=== PATIENT | female | born 1935 ===

== ENCOUNTER 2017-11-19 11:39 | Inpatient (IN) | payer MEDICARE, OTHER ==
[2017-11-19] MEDS ORDERED: Sodium Chloride 0.9% 1,000 ML IV STA (13:17)
[2017-11-19] MEDS ORDERED: Sodium Chloride 0.9% 1,000 ML ONE (13:30)
[2017-11-19 13:31] LABS: BASO # 0.1 K/uL (0.0-0.2); BASO % 0.6 % (0.0-2.0); EOS % 0.5 % (0.0-4.0); HEMOGLOBIN 12.4 g/dL (11.0-16.0); LYMPH # 1.7 K/uL (1.0-4.3); LYMPH % 19.4 % (20.0-40.0); MEAN CELL VOLUME 90.2 fL (81.0-99.0); MEAN CORPUSCULAR HEMOGLOBIN 30.3 pg (27.0-31.0); MEAN CORPUSCULAR HGB CONC 33.6 g/dL (33.0-37.0); MEAN PLATELET VOLUME 9.1 fL (7.2-11.7); MONO # 1.2 K/uL (0.0-0.8); MONO % 13.8 % (0.0-10.0); NEUT # 5.7 K/uL (1.8-7.0); NEUT % 65.7 % (50.0-75.0); RBC 4.1 Mil/uL (3.80-5.20); RED CELL DISTRIBUTION WIDTH 15.7 % (11.5-14.5); WHITE BLOOD COUNT 8.7 K/uL (4.8-10.8)
[2017-11-19 13:39] LABS: INR 1.2
[2017-11-19 13:45] LABS: ALB/GLOB RATIO 0.9 (1.0-2.1)
[2017-11-19 14:14] LABS: TROPONIN I 0.108 ng/mL (0.00-0.120)
--- NOTE | 2017-11-19 14:35 | RAD ---
Chest x-ray single frontal view History: Weak. Comparison: 03/05/2016 Findings: Patchy increased markings at the left lung base which may represent infiltrate and or atelectasis. Clinical correlation. Diffuse increased interstitial lung markings. Right hilar prominence. Mild calcification at the aortic knob. Tortuous aorta. Mild cardiomegaly. Degenerative changes in spine and shoulders. Impression: Patchy increased markings at the left lung base which may represent infiltrate and or atelectasis. Clinical correlation.
--- NOTE | 2017-11-19 14:43 | CT ---
PROCEDURE: CT HEAD WITHOUT CONTRAST. HISTORY: fell 1 wk ago, dizzy, poor gait COMPARISON: Noncontrast head CT performed 11/18/14 TECHNIQUE: Axial computed tomography images were obtained through the head/brain without intravenous contrast. Radiation dose: Total exam DLP = 814.25 mGy-cm. This CT exam was performed using one or more of the following dose reduction techniques: Automated exposure control, adjustment of the mA and/or kV according to patient size, and/or use of iterative reconstruction technique. FINDINGS: HEMORRHAGE: No intracranial hemorrhage. BRAIN: Diffuse atrophy with prominence of the ventricles and sulci noted. No mass effect or edema. Intracranial atherosclerosis. Intracranial atherosclerotic. Scattered periventricular and subcortical white matter hypodensities, which are nonspecific, but often seen with chronic microvascular ischemic disease. Please note that MRI with diffusion imaging is more sensitive in the detection of acute ischemic event. VENTRICLES: No hydrocephalus. CALVARIUM: Unremarkable. PARANASAL SINUSES: Mild mucosal thickening bilateral maxillary sinuses. MASTOID AIR CELLS: Unremarkable as visualized. No inflammatory changes. OTHER FINDINGS: None. IMPRESSION: Generalized atrophy. Moderate nonspecific white matter changes.
[2017-11-19 15:02] LABS: SQUAMOUS EPITHIAL 2 /hpf (0-5); URINE BACTERIA RARE (<OCC); URINE BILIRUBIN 1+ (NEGATIVE); URINE BLOOD 2+ (NEGATIVE); URINE CLARITY Hazy (Clear); URINE COLOR Amber (YELLOW); URINE GLUCOSE (UA) NORMAL (Normal); URINE LEUKOCYTE ESTERASE 1+ Leu/uL (Negative); URINE NITRATE NEGATIVE (NEGATIVE); URINE PROTEIN 1+ mg/dL (NEGATIVE); URINE UROBILINOGEN NORMAL mg/dL (0.2-1.0)
--- NOTE | 2017-11-19 15:24 | C.PDOC ---
History Of Present Illness 82 y/o female, referred by Dr. Ileana Richardson, presents to the ER complaining of weakness and lethargy which has been present for 1 week. Patient states that she fell today hitting her had. She reports that she is not eating and drinking well. Patient denies having any other injuries and medical complaints. Of note, patient lives alone. Time Seen by Provider: 11/19/17 13:11 Chief Complaint (Nursing): Weakness/Neurological Deficit History Per: Patient History/Exam Limitations: no limitations Onset/Duration Of Symptoms: Days Current Symptoms Are (Timing): Still Present Severity: Moderate Past Medical History Reviewed: Historical Data, Nursing Documentation, Vital Signs Vital Signs: Last Vital Signs Temp 97.9 F 11/20/17 16:00 Pulse 81 11/20/17 16:00 Resp 20 11/20/17 16:00 BP 145/85 11/20/17 16:00 Pulse Ox 99 11/20/17 16:00 - Medical History PMH: Arthritis, Asthma, Bronchitis, CAD, CHF, COPD, Diabetes, HTN, Hypercholesterolemia, Hypothyroidism, Osteoporosis, Peripheral Edema Denies: Atrial Fibrillation, Mitral Valve Prolapse, Chronic Kidney Disease Surgical History: Denies: Pacemaker - [facility] Procedures ASSISTANCE WITH RESPIRATORY VENTILATION, <24 HRS, CPAP (02/24/16) INSERTION OF ENDOTRACHEAL AIRWAY INTO TRACHEA, VIA OPENING (02/24/16) RESPIRATORY VENTILATION, GREATER THAN 96 CONSECUTIVE HOURS (02/24/16) Family History: States: No Known Family Hx - Social History Hx Tobacco Use: No Hx Alcohol Use: No Hx Substance Use: No - Immunization History Hx Tetanus Toxoid Vaccination: No Hx Influenza Vaccination: Yes Hx Pneumococcal Vaccination: No Review Of Systems Except As Marked, All Systems Reviewed And Found Negative. Constitutional: Positive for: Weakness. Negative for: Fever, Chills Neurological: Negative for: Weakness, Numbness Physical Exam - Physical Exam Appears: Non-toxic, No Acute Distress, Other (elderly, [place] woman) Skin: Normal Color, Warm Head: Atraumatic, Normacephalic Eye(s): bilateral: Normal Inspection, PERRL Nose: Normal Oral Mucosa: Moist Neck: Supple Chest: Symmetrical Cardiovascular: Rhythm Regular Respiratory: Normal Breath Sounds, No Accessory Muscle Use, No Rales, No Rhonchi , No Wheezing Gastrointestinal/Abdominal: Normal Exam, Soft, No Tenderness Extremity: Normal ROM Neurological/Psych: Oriented x3, Normal Speech, Normal Cognition, Normal Motor, Normal Sensation ED Course And Treatment - Laboratory Results Result Diagrams: 11/20/17 07:45 11/20/17 07:45 O2 Sat by Pulse Oximetry: 96 (RA) Pulse Ox Interpretation: Normal - Physician Consult Information Time Consulting Physician Contacted: 14:15 Physician Contacted: Outcome Of Conversation: is willing to cover the case. Medical Decision Making Medical Decision Making: Plan: --Labs --Urinalysis --CT-Head --CXR Disposition Doctor Will See Patient In The: Hospital Counseled Patient/Family Regarding: Studies Performed, Diagnosis - Disposition Disposition: HOSPITALIZED Disposition Time: 16:00 Condition: GOOD - Clinical Impression Clinical Impression: Dizziness - Scribe Statement The provider has reviewed the documentation as recorded by the Matthew Martinez Provider Attestation: All medical record entries made by the Matthew were at my direction and personally dictated by me. I have reviewed the chart and agree that the record accurately reflects my personal performance of the history, physical exam, medical decision making, and the department course for this patient. I have also personally directed, reviewed, and agree with the discharge instructions and disposition.
[2017-11-19] MEDS: Sodium Chloride 0.9% 1,000 ML IV SCH (17:00)
[2017-11-19] MEDS ORDERED: Albuterol-Ipratrop 3 mg / 0.5 (3 ml) UD INH PRN (17:32)
[2017-11-19] MEDS ORDERED: AZELASTINE 0.05% OU SCH (18:00)
[2017-11-19] MEDS ORDERED: AZELASTINE HCL 0.05% OU SCH (18:00)
[2017-11-19] MEDS: Cilostazol 50 mg Tab UD PO SCH (18:38)
[2017-11-19] MEDS: (Novolin R) Insulin Human Regular 100 units/ml vial SC SCH (21:30)
[2017-11-20] MEDS: Sodium Chloride 0.9% 1,000 ML IV SCH ×3 (05:30→20:29)
[2017-11-20 07:58] LABS: BASO % 0.6 % (0.0-2.0); EOS # 0.1 K/uL (0.0-0.7); EOS % 1.6 % (0.0-4.0); HEMOGLOBIN 11.1 g/dL (11.0-16.0); LYMPH # 2.2 K/uL (1.0-4.3); LYMPH % 28.8 % (20.0-40.0); MEAN CELL VOLUME 90.2 fL (81.0-99.0); MEAN CORPUSCULAR HEMOGLOBIN 30.3 pg (27.0-31.0); MEAN CORPUSCULAR HGB CONC 33.5 g/dL (33.0-37.0); MEAN PLATELET VOLUME 9.4 fL (7.2-11.7); MONO # 0.8 K/uL (0.0-0.8); NEUT # 4.6 K/uL (1.8-7.0); RBC 3.66 Mil/uL (3.80-5.20); RED CELL DISTRIBUTION WIDTH 15.3 % (11.5-14.5); WHITE BLOOD COUNT 7.8 K/uL (4.8-10.8)
[2017-11-20 08:25] LABS: ALBUMIN 3.3 g/dL (3.5-5.0); CALCIUM 8.3 mg/dl (8.6-10.4)
[2017-11-20] MEDS: (Novolin R) Insulin Human Regular 100 units/ml vial SC SCH ×4 (08:43→21:53)
[2017-11-20] MEDS: Cilostazol 50 mg Tab UD PO SCH ×2 (11:15→17:58)
[2017-11-20] MEDS: AZELASTINE 0.05% OU SCH ×2 (11:15→20:29)
--- NOTE | 2017-11-20 11:22 | RAD ---
PROCEDURE: Radiographs of the Lumbar Spine. HISTORY: s/p fall COMPARISON: No prior. FINDINGS: BONES: Generalized osteopenia, with diffuse spondylosis. There is mild increased concavity to the superior T12 endplate - prominent Schmorl's node indentation versus of mild compression deformity, less 25 percent, compatible with this. No decreased height of the anterior superior vertebral body corner here. Schmorl's node indentation favored. Prominent thoraco lumbar spondylosis also noted. Mild anterior subluxation of L5 relative to S1 - - due to inferred ligamentous laxity given the facet hypertrophic arthrosis here. No spondylolysis noted. Generalized osteopenia DISC SPACES: Thoraco lumbar level segmental disc space narrowing. OTHER FINDINGS: Atherosclerotic vascular calcifications descending abdominal aorta extending into the common iliac bifurcations. IMPRESSION: Probable T12 Schmorl's node indentation with prominent anterior spondylosis here. No fracture with retropulsion into the spinal canal suggested. . Generalized osteopenia L5-S1 minimal subluxation -attributed to ligamentous laxity- facet hypertrophic arthrosis noted Degenerative disc disease with calcified degenerative disc as well Atherosclerotic vascular disease
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
--- NOTE | 2017-11-20 15:21 | MRI ---
PROCEDURE: MRI BRAIN WITHOUT CONTRAST HISTORY: s/p fall COMPARISON: Noncontrast head CT from 11/19/2017. TECHNIQUE: Multiplanar, multisequence MR images of the brain were obtained without intravenous contrast enhancement. FINDINGS: HEMORRHAGE: None DWI: No evidence of an acute or early subacute infarction. BRAIN PARENCHYMA: There are severe chronic microangiopathic changes. There is no mass, mass effect or abnormal extra-axial fluid collection. The midline sagittal structures are normal. There is a prominent perivascular space in the right basal ganglia. VENTRICLES: There is moderate age-related global parenchymal volume loss and proportionate enlargement of the ventricles and cortical sulci. There is a cavum septum pellucidum. CRANIUM: There is normal bone marrow signal pattern. ORBITS: Grossly unremarkable. PARANASAL SINUSES/MASTOIDS: There is mild mucosal thickening in the paranasal sinuses. The mastoid air cells are clear. VASCULAR SYSTEM: There are normal signal voids in the larger intracranial arteries. OTHER FINDINGS: None. IMPRESSION: No acute intracranial abnormality. Severe chronic microangiopathic changes and moderate age-related global parenchymal volume loss.
--- NOTE | 2017-11-20 23:09 | CARD ---
APPROVED REPORT EKG Measurement Heart [id number] <Conclusion> Sinus rhythm with frequent premature ventricular complexes Left ventricular hypertrophy with repolarization abnormality Abnormal ECG
[2017-11-21 08:08] LABS: HEMOGLOBIN 11.9 g/dL (11.0-16.0); MEAN CELL VOLUME 89.8 fL (81.0-99.0); MEAN CORPUSCULAR HEMOGLOBIN 30.4 pg (27.0-31.0); MEAN CORPUSCULAR HGB CONC 33.8 g/dL (33.0-37.0); RBC 3.92 Mil/uL (3.80-5.20); RED CELL DISTRIBUTION WIDTH 15.2 % (11.5-14.5)
[2017-11-21] MEDS: (Novolin R) Insulin Human Regular 100 units/ml vial SC SCH ×3 (08:12→16:30)
[2017-11-21 08:53] LABS: ALBUMIN 3.6 g/dL (3.5-5.0); ALT/SGPT 32 U/L (9-52); AST/SGOT 29 U/L (14-36); BLOOD UREA NITROGEN 12 mg/dL (7-17); CALCIUM 9.1 mg/dl (8.6-10.4); GFR AFRICAN-AMERICAN > 60; GFR NON-AFRICAN AMERICAN > 60
[2017-11-21] MEDS ORDERED: Pneumococcal 23-Valent Vaccine IM ONE (10:00)
[2017-11-21] MEDS ORDERED: Influenza Vaccine 60 mcg/0.5 mL SYR (4YR UP) IM ONE (10:00)
[2017-11-21] MEDS: Cilostazol 50 mg Tab UD PO SCH ×2 (11:40→17:51)
[2017-11-21] MEDS: AZELASTINE 0.05% OU SCH ×2 (11:43→19:10)
--- NOTE | 2017-11-21 13:23 | CP.PCM.PN ---
Subjective - Date & Time of Evaluation Date of Evaluation: 11/21/17 Time of Evaluation: 13:21 - Subjective Subjective: CHIEF COMPLAINTS TODAY : GEN WEAKNESS , WALKS WITH ASSISTANCE CXR ? PNEUMONIA ROS. HEENT : N. Resp : No wheezing ,pleuritic CP ,or hemoptysis Cardio : No anginal CP, PND, orthopnea, palpitation GI : No abd.pain, n/v ,diarrhea or GI bleeding . EDGING CATCHER : No headache, vertigo, focal deficit. Musculoskel : No joint swelling , Derm : No rash Psych : Normal affect. Ext : No swelling ,calf pain PE. Pt. is alert awake in no distress. V.S As noted in the chart Head ,ear nose,throat and eyes : Normal. Neck : Supple with normal carotids. Lungs: Clear air entry. Heart : S1 & S2 normal with S4. No murmur. Abd : Soft non tender with normal bowel sounds. Neuro : Moves all ext. with no localized deficit. Ext : No edema with intact pulses.Non tender calves Derm : No rashes or decubitus ulcer. LABS/RADIOLOGY: MRI BRAIN NEG FOR ACUTE CHANGES ASSESSMENT/PLAN : ID EVAL PT Objective - Vital Signs/Intake and Output Vital Signs (last 24 hours): Temp Pulse Resp BP Pulse Ox 98.2 F 82 20 161/70 H 95 11/21/17 08:28 11/21/17 08:28 11/21/17 08:28 11/21/17 11:45 11/21/17 08:28 - Medications Medications: Current Medications Albuterol/Ipratropium (Duoneb 3 Mg/0.5 Mg (3 Ml) Ud) 3 ml INH RQ6 [facility] Aspirin (Aspirin Chewable) 81 mg PO DAILY [facility] Last Admin: 11/21/17 11:42 Dose: 81 mg Cilostazol (Pletal) 50 mg PO BID [facility] Last Admin: 11/21/17 11:40 Dose: 50 mg Gabapentin (Neurontin) 300 mg PO DAILY [facility] Last Admin: 11/21/17 11:42 Dose: 300 mg Heparin Sodium (Porcine) (Heparin) 5,000 units SC Q12 [facility] Last Admin: 11/19/17 21:33 Dose: 5,000 units Home Med (Patient's Own Drops) 2 drop OU BID [facility] Last Admin: 11/21/17 11:43 Dose: 2 drop Azithromycin 500 mg/ Dextrose 250 mls @ 167 mls/hr IVPB Q24H [facility] Last Admin: 11/20/17 21:52 Dose: 167 mls/hr Insulin Human Regular (Novolin R) 0 unit SC ACHS [facility] PRN Reason: Protocol Last Admin: 11/21/17 08:12 Dose: Not Given Losartan Potassium (Cozaar) 100 mg PO DAILY [facility] Last Admin: 11/21/17 11:42 Dose: 100 mg Metoprolol Tartrate (Lopressor) 50 mg PO BID [facility] Last Admin: 11/21/17 11:42 Dose: 50 mg - Labs Labs: 11/21/17 08:02 11/21/17 08:02 PT 13.0 SECONDS (9.7-12.2) H 11/19/17 13:24 INR 1.2 11/19/17 13:24 APTT 27 SECONDS (21-34) 11/19/17 13:24
--- NOTE | 2017-11-21 13:42 | CP.PCM.CON ---
History of Present Illness - History of Present Illness History of Present Illness: INFECTIOUS DISEASE CONSULT. PATIENT SEEN. CHART REVIEWED, STRESS WITH FAMILY MEMBERS DAUGHTER AT THE BEDSIDE. INFECTIOUS DISEASE CONSULT DICTATED. DICTATION #[id number]. Past Patient History - Past Medical History & Family History Past Medical History?: Yes - Past Social History Smoking Status: Never Smoked - CARDIAC Hx Atrial Fibrillation: No Hx Congestive Heart Failure: Yes Hx Hypercholesterolemia: Yes Hx Hypertension: Yes Hx Mitral Valve Prolapse: No Hx Pacemaker: No Hx Peripheral Edema: Yes - PULMONARY Hx Asthma: Yes Hx Bronchitis: Yes Hx Chronic Obstructive Pulmonary Disease (COPD): Yes - NEUROLOGICAL Hx Neurological Disorder: No Hx Dizziness: Yes - HEENT Hx HEENT Problems: Yes Hx Cataracts: Yes (cataract surgery 3 years ago?) Hx Glaucoma: No Other/Comment: wear eyeglasses - RENAL Hx Chronic Kidney Disease: No - ENDOCRINE/METABOLIC Hx Hypothyroidism: Yes - HEMATOLOGICAL/ONCOLOGICAL Hx Blood Disorders: No - INTEGUMENTARY Hx Dermatological Problems: No - MUSCULOSKELETAL/RHEUMATOLOGICAL Hx Arthritis: Yes Hx Osteoporosis: Yes - GASTROINTESTINAL Hx Gastrointestinal Disorders: No - GENITOURINARY/GYNECOLOGICAL Hx Genitourinary Disorders: No - PSYCHIATRIC Hx Substance Use: No - SURGICAL HISTORY Hx Surgeries: Yes Hx Orthopedic Surgery: Yes (left arm surgery 8 yrs ago) - ANESTHESIA Hx Anesthesia: Yes Hx Anesthesia Reactions: No Hx Malignant Hyperthermia: No Meds Allergies/Adverse Reactions: Allergies Allergy/AdvReac Type Severity Reaction Status Date / Time No Known Allergies Allergy Verified 11/19/17 12:21 - Medications Medications: Current Medications Albuterol/Ipratropium (Duoneb 3 Mg/0.5 Mg (3 Ml) Ud) 3 ml INH RQ6 [facility] Aspirin (Aspirin Chewable) 81 mg PO DAILY [facility] Last Admin: 11/21/17 11:42 Dose: 81 mg Cilostazol (Pletal) 50 mg PO BID [facility] Last Admin: 11/21/17 11:40 Dose: 50 mg Gabapentin (Neurontin) 300 mg PO DAILY [facility] Last Admin: 11/21/17 11:42 Dose: 300 mg Heparin Sodium (Porcine) (Heparin) 5,000 units SC Q12 [facility] Last Admin: 11/19/17 21:33 Dose: 5,000 units Home Med (Patient's Own Drops) 2 drop OU BID [facility] Last Admin: 11/21/17 11:43 Dose: 2 drop Azithromycin 500 mg/ Dextrose 250 mls @ 167 mls/hr IVPB Q24H [facility] Last Admin: 11/20/17 21:52 Dose: 167 mls/hr Insulin Human Regular (Novolin R) 0 unit SC ACHS [facility] PRN Reason: Protocol Last Admin: 11/21/17 13:21 Dose: Not Given Losartan Potassium (Cozaar) 100 mg PO DAILY [facility] Last Admin: 11/21/17 11:42 Dose: 100 mg Metoprolol Tartrate (Lopressor) 50 mg PO BID [facility] Last Admin: 11/21/17 11:42 Dose: 50 mg Results - Vital Signs Recent Vital Signs: Last Vital Signs Temp 98.2 F 11/21/17 08:28 Pulse 82 11/21/17 08:28 Resp 20 11/21/17 08:28 BP 161/70 H 11/21/17 11:45 Pulse Ox 95 11/21/17 08:28 - Labs Result Diagrams: 11/21/17 08:02 11/21/17 08:02 Labs: Laboratory Results - last 24 hr 11/20/17 11/20/17 11/21/17 16:24 21:08 07:39 WBC RBC Hgb Hct MCV MCH MCHC RDW Plt Count MPV Sodium Potassium Chloride Carbon Dioxide Anion Gap BUN Creatinine Est GFR ( Amer) Est GFR (Non-Af Amer) POC Glucose (mg/dL) 197 H 101 112 H Random Glucose Calcium Total Bilirubin AST ALT Alkaline Phosphatase Total Protein Albumin Globulin Albumin/Globulin Ratio 11/21/17 11/21/17 11/21/17 08:02 08:02 11:35 WBC 8.0 RBC 3.92 Hgb 11.9 Hct 35.2 MCV 89.8 MCH 30.4 MCHC 33.8 RDW 15.2 H Plt Count 187 MPV 9.0 Sodium 131 L Potassium 4.7 Chloride 103 Carbon Dioxide 22 Anion Gap 10 BUN 12 Creatinine 0.8 Est GFR ( Amer) > 60 Est GFR (Non-Af Amer) > 60 POC Glucose (mg/dL) 163 H Random Glucose 122 H Calcium 9.1 Total Bilirubin 0.8 AST 29 ALT 32 Alkaline Phosphatase 46 Total Protein 7.2 Albumin 3.6 Globulin 3.6 Albumin/Globulin Ratio 1.0
--- NOTE | 2017-11-21 18:31 | CT ---
PROCEDURE: CT Chest without contrast HISTORY: pneumonia COMPARISON: 02/29/2016 TECHNIQUE: Contiguous axial images were obtained through the chest without intravenous contrast enhancement. Sagittal and coronal reconstructions were performed. Radiation dose (DLP): 425.10 mGy-cm. This CT exam was performed using one or more of the following dose reduction techniques: Automated exposure control, adjustment of the mA and/or kV according to patient size, and/or use of iterative reconstruction technique. FINDINGS: LUNGS: Multifocal ground-glass opacities in the upper lobes. Compared to prior examination, there has been clearing of the lower lobe ground-glass opacities. Probable fibrotic interstitial changes at the lung bases. There are some patchy areas of damaso consolidation in the right upper lobe. MEDIASTINUM: Unremarkable thoracic aorta. No aneurysm. Cardiomegaly. Mitral annular calcification. Coronary arterial calcification. Main pulmonary artery unremarkable. No vascular congestion. Shotty lymph nodes. No significantly enlarged mediastinal or hilar nodes are appreciated. There is a nodule in the thyroid isthmus measuring approximately 1.5 cm. Recommend correlation with thyroid ultrasound examination. PLEURA: No pleural fluid. No pneumothorax. BONES: No fracture. No destructive lesion. UPPER ABDOMEN: Mild bilateral adrenal hypertrophy. OTHER FINDINGS: None. IMPRESSION: Multifocal ground-glass opacities in the upper lobes with some patchy areas of damaso consolidation in the right upper lobe. Possible pneumonia. Interstitial fibrotic changes at the lung bases. Cardiomegaly. Additional minor findings as above.
[2017-11-21] MEDS: Albuterol-Ipratrop 3 mg / 0.5 (3 ml) UD INH SCH (19:47)
[2017-11-22] MEDS: Albuterol-Ipratrop 3 mg / 0.5 (3 ml) UD INH SCH ×4 (01:40→19:45)
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
[2017-11-22 08:10] LABS: ALBUMIN 3.5 g/dL (3.5-5.0); BILIRUBIN,DIRECT 0.5 mg/dL (0.0-0.4)
[2017-11-22] MEDS: (Novolin R) Insulin Human Regular 100 units/ml vial SC SCH ×4 (08:12→21:48)
[2017-11-22 10:24] LABS: MYCOPLASMA PNEUMONIAE IGM NEGATIVE (NEGATIVE)
[2017-11-22] MEDS: Cilostazol 50 mg Tab UD PO SCH ×2 (10:47→18:27)
[2017-11-22] MEDS: AZELASTINE 0.05% OU SCH ×2 (10:51→18:26)
--- NOTE | 2017-11-22 13:32 | CP.PCM.PN ---
Subjective - Date & Time of Evaluation Date of Evaluation: 11/22/17 Time of Evaluation: 13:31 - Subjective Subjective: CHIEF COMPLAINTS TODAY : GEN WEAKNESS , WALKS WITH ASSISTANCE CXR ? PNEUMONIA ROS. HEENT : N. Resp : No wheezing ,pleuritic CP ,or hemoptysis Cardio : No anginal CP, PND, orthopnea, palpitation GI : No abd.pain, n/v ,diarrhea or GI bleeding . 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 Musculoskel : No joint swelling , Derm : No rash Psych : Normal affect. Ext : No swelling ,calf pain PE. Pt. is alert awake in no distress. V.S As noted in the chart Head ,ear nose,throat and eyes : Normal. Neck : Supple with normal carotids. Lungs: Clear air entry. Heart : S1 & S2 normal with S4. No murmur. Abd : Soft non tender with normal bowel sounds. Neuro : Moves all ext. with no localized deficit. Ext : No edema with intact pulses.Non tender calves Derm : No rashes or decubitus ulcer. LABS/RADIOLOGY: ct chestBIL APICAL PNEUMONIA PLAN; IV AB ?TB W/U Objective - Vital Signs/Intake and Output Vital Signs (last 24 hours): Temp Pulse Resp BP Pulse Ox 98 F 68 20 131/85 96 11/22/17 08:21 11/22/17 08:21 11/22/17 08:21 11/22/17 08:21 11/22/17 08:21 - Medications Medications: Current Medications Albuterol/Ipratropium (Duoneb 3 Mg/0.5 Mg (3 Ml) Ud) 3 ml INH RQ6 [facility] Last Admin: 11/22/17 09:18 Dose: 3 ml Aspirin (Aspirin Chewable) 81 mg PO DAILY [facility] Last Admin: 11/22/17 10:45 Dose: 81 mg Cilostazol (Pletal) 50 mg PO BID [facility] Last Admin: 11/22/17 10:47 Dose: 50 mg Gabapentin (Neurontin) 300 mg PO DAILY [facility] Last Admin: 11/22/17 10:44 Dose: 300 mg Heparin Sodium (Porcine) (Heparin) 5,000 units SC Q12 [facility] Last Admin: 11/19/17 21:33 Dose: 5,000 units Home Med (Patient's Own Drops) 2 drop OU BID [facility] Last Admin: 11/22/17 10:51 Dose: 2 drop Azithromycin 500 mg/ Dextrose 250 mls @ 167 mls/hr IVPB Q24H [facility] Last Admin: 11/21/17 18:30 Dose: 167 mls/hr Ceftriaxone Sodium 1 gm/ (Sodium Chloride) 100 mls @ 50 mls/30 min IVPB Q12H [facility] Last Admin: 11/22/17 01:51 Dose: 50 mls/30 min Insulin Human Regular (Novolin R) 0 unit SC ACHS [facility] PRN Reason: Protocol Last Admin: 11/22/17 12:27 Dose: 3 unit Losartan Potassium (Cozaar) 100 mg PO DAILY [facility] Last Admin: 11/22/17 10:45 Dose: 100 mg Metoprolol Tartrate (Lopressor) 50 mg PO BID [facility] Last Admin: 11/22/17 10:45 Dose: 50 mg - Labs Labs: 11/21/17 08:02 11/21/17 08:02 PT 13.0 SECONDS (9.7-12.2) H 11/19/17 13:24 INR 1.2 11/19/17 13:24 APTT 27 SECONDS (21-34) 11/19/17 13:24
--- NOTE | 2017-11-22 13:51 | CP.PCM.PN ---
Subjective - Date & Time of Evaluation Date of Evaluation: 11/22/17 Time of Evaluation: 13:51 - Subjective Subjective: CHIEF COMPLAINTS TODAY : c/o dry cough unable to expectorate. ct chest w/o contrast noted. 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 HEENT : N. Resp : +ve wheezing ,pleuritic CP ,or hemoptysis Cardio : No anginal CP, PND, orthopnea, palpitation GI : No abd.pain, n/v ,diarrhea or GI bleeding . 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 Musculoskel : No joint swelling , Derm : No rash Psych : Normal affect. Ext : No swelling ,calf pain PE. Pt. is alert awake in no distress. V.S As noted in the chart Head ,ear nose,throat and eyes : Normal. Neck : Supple with normal carotids. Lungs: B/L RHONCHI /EXPIRATORY WHEEZE. Heart : S1 & S2 normal with S4. No murmur. Abd : Soft non tender with normal bowel sounds. Neuro : Moves all ext. with no localized deficit. Ext : No edema with intact pulses.Non tender calves Derm : No rashes or decubitus ulcer. LABS/RADIOLOGY: CT CHEST VIANNEY APICAL PNEUMONIA . ESR >100 PLAN; CONTINUE IV ROCEPHIN 1GM IV Q12 [facility]. 11/21/17. CONTINUE IV ZITHROMAX 500MG IV [id number] . 11/21/17 ?TB W/U. PULMONARY CONSULT R/O TB. Objective - Vital Signs/Intake and Output Vital Signs (last 24 hours): Temp Pulse Resp BP Pulse Ox 98 F 68 20 131/85 96 11/22/17 08:21 11/22/17 08:21 11/22/17 08:21 11/22/17 08:21 11/22/17 08:21 - Medications Medications: Current Medications Albuterol/Ipratropium (Duoneb 3 Mg/0.5 Mg (3 Ml) Ud) 3 ml INH RQ6 [facility] Last Admin: 11/22/17 09:18 Dose: 3 ml Aspirin (Aspirin Chewable) 81 mg PO DAILY [facility] Last Admin: 11/22/17 10:45 Dose: 81 mg Cilostazol (Pletal) 50 mg PO BID [facility] Last Admin: 11/22/17 10:47 Dose: 50 mg Gabapentin (Neurontin) 300 mg PO DAILY [facility] Last Admin: 11/22/17 10:44 Dose: 300 mg Heparin Sodium (Porcine) (Heparin) 5,000 units SC Q12 [facility] Last Admin: 11/19/17 21:33 Dose: 5,000 units Home Med (Patient's Own Drops) 2 drop OU BID [facility] Last Admin: 11/22/17 10:51 Dose: 2 drop Azithromycin 500 mg/ Dextrose 250 mls @ 167 mls/hr IVPB Q24H [facility] Last Admin: 11/21/17 18:30 Dose: 167 mls/hr Ceftriaxone Sodium 1 gm/ (Sodium Chloride) 100 mls @ 50 mls/30 min IVPB Q12H [facility] Last Admin: 11/22/17 01:51 Dose: 50 mls/30 min Insulin Human Regular (Novolin R) 0 unit SC ACHS [facility] PRN Reason: Protocol Last Admin: 11/22/17 12:27 Dose: 3 unit Losartan Potassium (Cozaar) 100 mg PO DAILY [facility] Last Admin: 11/22/17 10:45 Dose: 100 mg Metoprolol Tartrate (Lopressor) 50 mg PO BID [facility] Last Admin: 11/22/17 10:45 Dose: 50 mg - Labs Labs: 11/21/17 08:02 11/21/17 08:02 PT 13.0 SECONDS (9.7-12.2) H 11/19/17 13:24 INR 1.2 11/19/17 13:24 APTT 27 SECONDS (21-34) 11/19/17 13:24
[2017-11-23] MEDS: Albuterol-Ipratrop 3 mg / 0.5 (3 ml) UD INH SCH ×4 (01:17→21:34)
[2017-11-23] MEDS: (Novolin R) Insulin Human Regular 100 units/ml vial SC SCH ×4 (07:33→21:36)
[2017-11-23] MEDS: Cilostazol 50 mg Tab UD PO SCH ×2 (09:50→17:44)
[2017-11-23] MEDS: AZELASTINE 0.05% OU SCH ×2 (10:00→17:45)
--- NOTE | 2017-11-23 13:24 | CP.PCM.PN ---
Subjective - Date & Time of Evaluation Date of Evaluation: 11/23/17 Time of Evaluation: 13:24 - Subjective Subjective: CHIEF COMPLAINTS TODAY : GEN WEAKNESS , WALKS WITH ASSISTANCE CXR ? PNEUMONIA ROS. HEENT : N. Resp : No wheezing ,pleuritic CP ,or hemoptysis Cardio : No anginal CP, PND, orthopnea, palpitation GI : No abd.pain, n/v ,diarrhea or GI bleeding . BREAKDOWN PERSON : No headache, vertigo, focal deficit. Musculoskel : No joint swelling , Derm : No rash Psych : Normal affect. Ext : No swelling ,calf pain PE. Pt. is alert awake in no distress. V.S As noted in the chart Head ,ear nose,throat and eyes : Normal. Neck : Supple with normal carotids. Lungs: Clear air entry. Heart : S1 & S2 normal with S4. No murmur. Abd : Soft non tender with normal bowel sounds. Neuro : Moves all ext. with no localized deficit. Ext : No edema with intact pulses.Non tender calves Derm : No rashes or decubitus ulcer. LABS/RADIOLOGY: ct chestBIL APICAL PNEUMONIA PLAN; IV AB AWAITING [employer] /PULM EVAL Objective - Vital Signs/Intake and Output Vital Signs (last 24 hours): Temp Pulse Resp BP Pulse Ox 97.7 F 83 20 136/66 97 11/23/17 08:11 11/23/17 08:11 11/23/17 08:11 11/23/17 08:11 11/23/17 08:11 Intake and Output: 11/23/17 11/23/17 11:59 23:59 Intake Total 100 Balance 100 - Medications Medications: Current Medications Albuterol/Ipratropium (Duoneb 3 Mg/0.5 Mg (3 Ml) Ud) 3 ml INH RQ6 [facility] Last Admin: 11/23/17 08:59 Dose: 3 ml Aspirin (Aspirin Chewable) 81 mg PO DAILY [facility] Last Admin: 11/23/17 09:50 Dose: 81 mg Cilostazol (Pletal) 50 mg PO BID [facility] Last Admin: 11/23/17 09:50 Dose: 50 mg Gabapentin (Neurontin) 300 mg PO DAILY [facility] Last Admin: 11/23/17 09:50 Dose: 300 mg Heparin Sodium (Porcine) (Heparin) 5,000 units SC Q12 [facility] Last Admin: 11/19/17 21:33 Dose: 5,000 units Home Med (Patient's Own Drops) 2 drop OU BID [facility] Last Admin: 11/22/17 18:26 Dose: 2 drop Azithromycin 500 mg/ Dextrose 250 mls @ 167 mls/hr IVPB Q24H [facility] Last Admin: 11/22/17 18:27 Dose: 167 mls/hr Ceftriaxone Sodium 1 gm/ (Sodium Chloride) 100 mls @ 50 mls/30 min IVPB Q12H [facility] Last Admin: 11/23/17 03:19 Dose: 50 mls/30 min Insulin Human Regular (Novolin R) 0 unit SC ACHS [facility] PRN Reason: Protocol Last Admin: 11/23/17 12:30 Dose: 2 unit Losartan Potassium (Cozaar) 100 mg PO DAILY [facility] Last Admin: 11/23/17 09:49 Dose: 100 mg Metoprolol Tartrate (Lopressor) 50 mg PO BID [facility] Last Admin: 11/22/17 18:25 Dose: 50 mg - Labs Labs: 11/21/17 08:02 11/21/17 08:02 PT 13.0 SECONDS (9.7-12.2) H 11/19/17 13:24 INR 1.2 11/19/17 13:24 APTT 27 SECONDS (21-34) 11/19/17 13:24
--- NOTE | 2017-11-23 15:32 | CP.PCM.CON ---
History of Present Illness - History of Present Illness History of Present Illness: 82 y/o female who presented with lethargy, fatigue and dyspnea. The patient is found to have upperlobe infiltrates and some chronic changes. Pulmonary consult called for further evaluation. Pt reports her symptoms to be present for 1 week. She denies fever, chills, night sweats, weight loss or hemoptysis. Review of Systems - Review of Systems All systems: reviewed and no additional remarkable complaints except (See HPI, rest negative) Past Patient History - Past Medical History & Family History Past Medical History?: Yes - Past Social History Smoking Status: Never Smoked - CARDIAC Hx Atrial Fibrillation: No Hx Congestive Heart Failure: Yes Hx Hypercholesterolemia: Yes Hx Hypertension: Yes Hx Mitral Valve Prolapse: No Hx Pacemaker: No Hx Peripheral Edema: Yes - PULMONARY Hx Asthma: Yes Hx Bronchitis: Yes Hx Chronic Obstructive Pulmonary Disease (COPD): Yes - NEUROLOGICAL Hx Neurological Disorder: No Hx Dizziness: Yes - HEENT Hx HEENT Problems: Yes Hx Cataracts: Yes (cataract surgery 3 years ago?) Hx Glaucoma: No Other/Comment: wear eyeglasses - RENAL Hx Chronic Kidney Disease: No - ENDOCRINE/METABOLIC Hx Hypothyroidism: Yes - HEMATOLOGICAL/ONCOLOGICAL Hx Blood Disorders: No - INTEGUMENTARY Hx Dermatological Problems: No - MUSCULOSKELETAL/RHEUMATOLOGICAL Hx Arthritis: Yes Hx Osteoporosis: Yes - GASTROINTESTINAL Hx Gastrointestinal Disorders: No - GENITOURINARY/GYNECOLOGICAL Hx Genitourinary Disorders: No - PSYCHIATRIC Hx Substance Use: No - SURGICAL HISTORY Hx Surgeries: Yes Hx Orthopedic Surgery: Yes (left arm surgery 8 yrs ago) - ANESTHESIA Hx Anesthesia: Yes Hx Anesthesia Reactions: No Hx Malignant Hyperthermia: No Meds Allergies/Adverse Reactions: Allergies Allergy/AdvReac Type Severity Reaction Status Date / Time No Known Allergies Allergy Verified 11/19/17 12:21 - Medications Medications: Current Medications Albuterol/Ipratropium (Duoneb 3 Mg/0.5 Mg (3 Ml) Ud) 3 ml INH RQ6 [facility] Last Admin: 11/23/17 08:59 Dose: 3 ml Aspirin (Aspirin Chewable) 81 mg PO DAILY [facility] Last Admin: 11/23/17 09:50 Dose: 81 mg Cilostazol (Pletal) 50 mg PO BID [facility] Last Admin: 11/23/17 09:50 Dose: 50 mg Gabapentin (Neurontin) 300 mg PO DAILY [facility] Last Admin: 11/23/17 09:50 Dose: 300 mg Heparin Sodium (Porcine) (Heparin) 5,000 units SC Q12 [facility] Last Admin: 11/19/17 21:33 Dose: 5,000 units Home Med (Patient's Own Drops) 2 drop OU BID [facility] Last Admin: 11/23/17 10:00 Dose: 2 drop Azithromycin 500 mg/ Dextrose 250 mls @ 167 mls/hr IVPB Q24H [facility] Last Admin: 11/22/17 18:27 Dose: 167 mls/hr Ceftriaxone Sodium 1 gm/ (Sodium Chloride) 100 mls @ 50 mls/30 min IVPB Q12H [facility] Last Admin: 11/23/17 14:00 Dose: 50 mls/30 min Insulin Human Regular (Novolin R) 0 unit SC ACHS [facility] PRN Reason: Protocol Last Admin: 11/23/17 12:30 Dose: 2 unit Losartan Potassium (Cozaar) 100 mg PO DAILY [facility] Last Admin: 11/23/17 09:49 Dose: 100 mg Metoprolol Tartrate (Lopressor) 50 mg PO BID [facility] Last Admin: 11/22/17 18:25 Dose: 50 mg Physical Exam - Head Exam Head Exam: NORMAL INSPECTION - Eye Exam Eye Exam: Normal appearance - ENT Exam ENT Exam: Mucous Membranes Moist - Respiratory Exam Respiratory Exam: Clear to Auscultation Bilateral, NORMAL BREATHING PATTERN - Cardiovascular Exam Cardiovascular Exam: REGULAR RHYTHM, +S1, +S2 - GI/Abdominal Exam GI & Abdominal Exam: Normal Bowel Sounds, Soft - Extremities Exam Extremities exam: Positive for: normal inspection Results - Vital Signs Recent Vital Signs: Last Vital Signs Temp 97.7 F 11/23/17 08:11 Pulse 83 11/23/17 08:11 Resp 20 11/23/17 08:11 BP 136/66 11/23/17 08:11 Pulse Ox 97 11/23/17 08:11 - Labs Result Diagrams: 11/21/17 08:02 11/21/17 08:02 Labs: Laboratory Results - last 24 hr 11/22/17 11/22/17 11/23/17 16:08 21:09 07:05 POC Glucose (mg/dL) 215 H 184 H 129 H 11/23/17 11:15 POC Glucose (mg/dL) 226 H Assessment & Plan - Assessment and Plan (Free Text) Assessment: Pneumonia ? Pulmonary TB COPD CHF Agree with Respiratory isolation Ceftrioxone and zithromax [employer]'s [employer] QUENTIFERON Will evaluate for further w/u based on above tests. Consider Lasix 2D Echo to evaluate cardiac function, if not done recently.
--- NOTE | 2017-11-23 22:26 | CP.PCM.PN ---
Subjective - Date & Time of Evaluation Date of Evaluation: 11/23/17 Time of Evaluation: 22:26 - Subjective Subjective: CHIEF COMPLAINTS TODAY : AFEBRILE Feeling better SEEN BY PULMONARY AND APPRECIATED ct chest w/o contrast noted. 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 HEENT : N. Resp : +ve wheezing ,pleuritic CP ,or hemoptysis Cardio : No anginal CP, PND, orthopnea, palpitation GI : No abd.pain, n/v ,diarrhea or GI bleeding . 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 Musculoskel : No joint swelling , Derm : No rash Psych : Normal affect. Ext : No swelling ,calf pain PE. Pt. is alert awake in no distress. V.S As noted in the chart Head ,ear nose,throat and eyes : Normal. Neck : Supple with normal carotids. Lungs: B/L RHONCHI /EXPIRATORY WHEEZE. Heart : S1 & S2 normal with S4. No murmur. Abd : Soft non tender with normal bowel sounds. Neuro : Moves all ext. with no localized deficit. Ext : No edema with intact pulses.Non tender calves Derm : No rashes or decubitus ulcer. LABS/RADIOLOGY: CT CHEST VIANNEY APICAL PNEUMONIA . ESR >100 PLAN; CONTINUE IV ROCEPHIN 1GM IV Q12 [facility]. 11/21/17. CONTINUE IV ZITHROMAX 500MG IV [id number] . 11/21/17 TB W/U. IN PROGRESS aWAIT qUANTIferon gOLD tb TEST SPUTUM INDUCTION DAILY 3 SPUTUM'S. PULMONARY CONSULT R/O TB. APPRECIATED. Objective - Vital Signs/Intake and Output Vital Signs (last 24 hours): Temp Pulse Resp BP Pulse Ox 97.9 F 94 H 20 147/76 99 11/23/17 16:00 11/23/17 16:00 11/23/17 16:00 11/23/17 16:00 11/23/17 16:00 Intake and Output: 11/23/17 11/24/17 18:59 06:59 Intake Total 560 Balance 560 - Medications Medications: Current Medications Albuterol/Ipratropium (Duoneb 3 Mg/0.5 Mg (3 Ml) Ud) 3 ml INH RQ6 [facility] Last Admin: 11/23/17 21:34 Dose: 3 ml Aspirin (Aspirin Chewable) 81 mg PO DAILY [facility] Last Admin: 11/23/17 09:50 Dose: 81 mg Cilostazol (Pletal) 50 mg PO BID [facility] Last Admin: 11/23/17 17:44 Dose: 50 mg Gabapentin (Neurontin) 300 mg PO DAILY [facility] Last Admin: 11/23/17 09:50 Dose: 300 mg Heparin Sodium (Porcine) (Heparin) 5,000 units SC Q12 [facility] Last Admin: 11/19/17 21:33 Dose: 5,000 units Home Med (Patient's Own Drops) 2 drop OU BID [facility] Last Admin: 11/23/17 17:45 Dose: 2 drop Azithromycin 500 mg/ Dextrose 250 mls @ 167 mls/hr IVPB Q24H [facility] Last Admin: 11/23/17 17:43 Dose: 167 mls/hr Ceftriaxone Sodium 1 gm/ (Sodium Chloride) 100 mls @ 50 mls/30 min IVPB Q12H [facility] Last Admin: 11/23/17 14:00 Dose: 50 mls/30 min Insulin Human Regular (Novolin R) 0 unit SC ACHS [facility] PRN Reason: Protocol Last Admin: 11/23/17 21:36 Dose: Not Given Losartan Potassium (Cozaar) 100 mg PO DAILY [facility] Last Admin: 11/23/17 09:49 Dose: 100 mg Metoprolol Tartrate (Lopressor) 50 mg PO BID [facility] Last Admin: 11/23/17 17:38 Dose: 50 mg - Labs Labs: 11/21/17 08:02 11/21/17 08:02 PT 13.0 SECONDS (9.7-12.2) H 11/19/17 13:24 INR 1.2 11/19/17 13:24 APTT 27 SECONDS (21-34) 11/19/17 13:24
[2017-11-24] MEDS: Albuterol-Ipratrop 3 mg / 0.5 (3 ml) UD INH SCH ×5 (01:51→21:03)
[2017-11-24] MEDS: (Novolin R) Insulin Human Regular 100 units/ml vial SC SCH ×4 (08:08→22:32)
[2017-11-24] MEDS: AZELASTINE 0.05% OU SCH ×2 (11:12→17:49)
[2017-11-24] MEDS: Cilostazol 50 mg Tab UD PO SCH ×2 (11:12→17:43)
--- NOTE | 2017-11-24 12:20 | CP.PCM.PN ---
Subjective - Date & Time of Evaluation Date of Evaluation: 11/24/17 Time of Evaluation: 12:20 Objective - Vital Signs/Intake and Output Vital Signs (last 24 hours): Temp Pulse Resp BP Pulse Ox 98.3 F 85 20 147/81 99 11/24/17 00:00 11/24/17 00:00 11/24/17 00:00 11/24/17 00:00 11/24/17 00:00 Intake and Output: 11/24/17 11/24/17 06:59 18:59 Intake Total 650 Balance 650 - Medications Medications: Current Medications Albuterol/Ipratropium (Duoneb 3 Mg/0.5 Mg (3 Ml) Ud) 3 ml INH RQ6 [facility] Last Admin: 11/24/17 08:34 Dose: 3 ml Aspirin (Aspirin Chewable) 81 mg PO DAILY [facility] Last Admin: 11/24/17 11:04 Dose: 81 mg Cilostazol (Pletal) 50 mg PO BID [facility] Last Admin: 11/24/17 11:12 Dose: 50 mg Gabapentin (Neurontin) 300 mg PO DAILY [facility] Last Admin: 11/24/17 11:03 Dose: 300 mg Heparin Sodium (Porcine) (Heparin) 5,000 units SC Q12 [facility] Last Admin: 11/19/17 21:33 Dose: 5,000 units Home Med (Patient's Own Drops) 2 drop OU BID [facility] Last Admin: 11/24/17 11:12 Dose: 2 drop Azithromycin 500 mg/ Dextrose 250 mls @ 167 mls/hr IVPB Q24H [facility] Last Admin: 11/23/17 17:43 Dose: 167 mls/hr Ceftriaxone Sodium 1 gm/ (Sodium Chloride) 100 mls @ 50 mls/30 min IVPB Q12H [facility] Last Admin: 11/24/17 02:25 Dose: 50 mls/30 min Insulin Human Regular (Novolin R) 0 unit SC ACHS [facility] PRN Reason: Protocol Last Admin: 11/24/17 08:08 Dose: Not Given Losartan Potassium (Cozaar) 100 mg PO DAILY [facility] Last Admin: 11/24/17 11:03 Dose: 100 mg Metoprolol Tartrate (Lopressor) 50 mg PO BID [facility] Last Admin: 11/24/17 11:04 Dose: 50 mg - Labs Labs: 11/21/17 08:02 11/21/17 08:02 PT 13.0 SECONDS (9.7-12.2) H 11/19/17 13:24 INR 1.2 11/19/17 13:24 APTT 27 SECONDS (21-34) 11/19/17 13:24
--- NOTE | 2017-11-24 13:49 | CP.PCM.PN ---
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 HEENT : N. Resp : No wheezing ,pleuritic CP ,or hemoptysis Cardio : No anginal CP, PND, orthopnea, palpitation GI : No abd.pain, n/v ,diarrhea or GI bleeding . 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 Musculoskel : No joint swelling , Derm : No rash Psych : Normal affect. Ext : No swelling ,calf pain PE. Pt. is alert awake in no distress. V.S As noted in the chart Head ,ear nose,throat and eyes : Normal. Neck : Supple with normal carotids. Lungs: Clear air entry. Heart : S1 & S2 normal with S4. No murmur. Abd : Soft non tender with normal bowel sounds. Neuro : Moves all ext. with no localized deficit. Ext : No edema with intact pulses.Non tender calves Derm : No rashes or decubitus ulcer. LABS/RADIOLOGY: ct chestBIL APICAL PNEUMONIA PLAN; IV AB AWAITING TB W/U Objective - Vital Signs/Intake and Output Vital Signs (last 24 hours): Temp Pulse Resp BP Pulse Ox 98.3 F 85 20 147/81 99 11/24/17 00:00 11/24/17 00:00 11/24/17 00:00 11/24/17 00:00 11/24/17 00:00 Intake and Output: 11/24/17 11/24/17 11:59 23:59 Intake Total 350 Balance 350 - Medications Medications: Current Medications Albuterol/Ipratropium (Duoneb 3 Mg/0.5 Mg (3 Ml) Ud) 3 ml INH RQ6 [facility] Last Admin: 11/24/17 08:34 Dose: 3 ml Aspirin (Aspirin Chewable) 81 mg PO DAILY [facility] Last Admin: 11/24/17 11:04 Dose: 81 mg Cilostazol (Pletal) 50 mg PO BID [facility] Last Admin: 11/24/17 11:12 Dose: 50 mg Gabapentin (Neurontin) 300 mg PO DAILY [facility] Last Admin: 11/24/17 11:03 Dose: 300 mg Heparin Sodium (Porcine) (Heparin) 5,000 units SC Q12 [facility] Last Admin: 11/19/17 21:33 Dose: 5,000 units Home Med (Patient's Own Drops) 2 drop OU BID [facility] Last Admin: 11/24/17 11:12 Dose: 2 drop Azithromycin 500 mg/ Dextrose 250 mls @ 167 mls/hr IVPB Q24H [facility] Last Admin: 11/23/17 17:43 Dose: 167 mls/hr Ceftriaxone Sodium 1 gm/ (Sodium Chloride) 100 mls @ 50 mls/30 min IVPB Q12H [facility] Last Admin: 11/24/17 02:25 Dose: 50 mls/30 min Insulin Human Regular (Novolin R) 0 unit SC ACHS [facility] PRN Reason: Protocol Last Admin: 11/24/17 08:08 Dose: Not Given Losartan Potassium (Cozaar) 100 mg PO DAILY [facility] Last Admin: 11/24/17 11:03 Dose: 100 mg Metoprolol Tartrate (Lopressor) 50 mg PO BID [facility] Last Admin: 11/24/17 11:04 Dose: 50 mg - Labs Labs: 11/21/17 08:02 11/21/17 08:02 PT 13.0 SECONDS (9.7-12.2) H 11/19/17 13:24 INR 1.2 11/19/17 13:24 APTT 27 SECONDS (21-34) 11/19/17 13:24
--- NOTE | 2017-11-24 21:21 | CP.PCM.PN ---
Subjective - Date & Time of Evaluation Date of Evaluation: 11/24/17 Time of Evaluation: 21:21 - Subjective Subjective: CHIEF COMPLAINTS TODAY : AFEBRILE Feeling better PATIENT STATES HAS NO SPUTUM ct chest w/o contrast noted. 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 HEENT : N. Resp : +ve wheezing ,pleuritic CP ,or hemoptysis Cardio : No anginal CP, PND, orthopnea, palpitation GI : No abd.pain, n/v ,diarrhea or GI bleeding . 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 Musculoskel : No joint swelling , Derm : No rash Psych : Normal affect. Ext : No swelling ,calf pain PE. Pt. is alert awake in no distress. V.S As noted in the chart Head ,ear nose,throat and eyes : Normal. Neck : Supple with normal carotids. Lungs: B/L RHONCHI /EXPIRATORY WHEEZE. Heart : S1 & S2 normal with S4. No murmur. Abd : Soft non tender with normal bowel sounds. Neuro : Moves all ext. with no localized deficit. Ext : No edema with intact pulses.Non tender calves Derm : No rashes or decubitus ulcer. LABS/RADIOLOGY: CT CHEST VIANNEY APICAL PNEUMONIA . ESR >100 PLAN; CONTINUE IV ROCEPHIN 1GM IV Q12 [facility]. 11/21/17. CONTINUE IV ZITHROMAX 500MG IV [id number] . 11/21/17 TB W/U. IN PROGRESS aWAIT QUANTIFERON GOLD tb TEST SPUTUM INDUCTION DAILY 3 SPUTUM'S.-P Objective - Vital Signs/Intake and Output Vital Signs (last 24 hours): Temp Pulse Resp BP Pulse Ox 97.4 F L 85 20 122/70 95 11/24/17 08:00 11/24/17 08:00 11/24/17 08:00 11/24/17 08:00 11/24/17 08:00 - Medications Medications: Current Medications Albuterol/Ipratropium (Duoneb 3 Mg/0.5 Mg (3 Ml) Ud) 3 ml INH RQ6 [facility] Last Admin: 11/24/17 21:03 Dose: Not Given Aspirin (Aspirin Chewable) 81 mg PO DAILY [facility] Last Admin: 11/24/17 11:04 Dose: 81 mg Cilostazol (Pletal) 50 mg PO BID [facility] Last Admin: 11/24/17 17:43 Dose: 50 mg Gabapentin (Neurontin) 300 mg PO DAILY [facility] Last Admin: 11/24/17 11:03 Dose: 300 mg Heparin Sodium (Porcine) (Heparin) 5,000 units SC Q12 [facility] Last Admin: 11/19/17 21:33 Dose: 5,000 units Home Med (Patient's Own Drops) 2 drop OU BID [facility] Last Admin: 11/24/17 17:49 Dose: 2 drop Azithromycin 500 mg/ Dextrose 250 mls @ 167 mls/hr IVPB Q24H [facility] Last Admin: 11/24/17 17:52 Dose: 167 mls/hr Ceftriaxone Sodium 1 gm/ (Sodium Chloride) 100 mls @ 50 mls/30 min IVPB Q12H [facility] Last Admin: 11/24/17 14:20 Dose: 50 mls/30 min Insulin Human Regular (Novolin R) 0 unit SC ACHS [facility] PRN Reason: Protocol Last Admin: 11/24/17 17:51 Dose: 2 unit Losartan Potassium (Cozaar) 100 mg PO DAILY [facility] Last Admin: 11/24/17 11:03 Dose: 100 mg Metoprolol Tartrate (Lopressor) 50 mg PO BID [facility] Last Admin: 11/24/17 17:45 Dose: 50 mg - Labs Labs: 11/21/17 08:02 11/21/17 08:02 PT 13.0 SECONDS (9.7-12.2) H 11/19/17 13:24 INR 1.2 11/19/17 13:24 APTT 27 SECONDS (21-34) 11/19/17 13:24
[2017-11-25] MEDS ORDERED: Tramadol 25 mg PO ONE (00:40)
[2017-11-25] MEDS: Albuterol-Ipratrop 3 mg / 0.5 (3 ml) UD INH SCH ×4 (01:58→20:14)
[2017-11-25 07:21] LABS: BASO # 0.1 K/uL (0.0-0.2); BASO % 0.6 % (0.0-2.0); EOS # 0.2 K/uL (0.0-0.7); EOS % 2.7 % (0.0-4.0); HEMOGLOBIN 11.3 g/dL (11.0-16.0); LYMPH % 25.5 % (20.0-40.0); MEAN CELL VOLUME 88.7 fL (81.0-99.0); MEAN CORPUSCULAR HEMOGLOBIN 30.6 pg (27.0-31.0); MEAN CORPUSCULAR HGB CONC 34.5 g/dL (33.0-37.0); MEAN PLATELET VOLUME 8.9 fL (7.2-11.7); MONO # 0.8 K/uL (0.0-0.8); MONO % 9.4 % (0.0-10.0); NEUT % 61.8 % (50.0-75.0); RBC 3.69 Mil/uL (3.80-5.20); RED CELL DISTRIBUTION WIDTH 14.7 % (11.5-14.5)
[2017-11-25] MEDS: (Novolin R) Insulin Human Regular 100 units/ml vial SC SCH ×4 (07:30→21:51)
[2017-11-25 07:45] LABS: ALBUMIN 3.5 g/dL (3.5-5.0); ALT/SGPT 35 U/L (9-52); AST/SGOT 23 U/L (14-36); BLOOD UREA NITROGEN 9 mg/dL (7-17); CALCIUM 8.8 mg/dl (8.6-10.4); GFR AFRICAN-AMERICAN > 60; GFR NON-AFRICAN AMERICAN > 60; MAGNESIUM 1.2 mg/dL (1.6-2.3)
[2017-11-25] MEDS: Cilostazol 50 mg Tab UD PO SCH ×2 (09:44→17:14)
[2017-11-25] MEDS: AZELASTINE 0.05% OU SCH ×2 (09:46→17:13)
--- NOTE | 2017-11-25 14:48 | CP.PCM.PN ---
Subjective - Date & Time of Evaluation Date of Evaluation: 11/25/17 Time of Evaluation: 14:48 - Subjective Subjective: CHIEF COMPLAINTS TODAY : GEN WEAKNESS , WALKS WITH ASSISTANCE DEPRESSED ROS. HEENT : N. Resp : No wheezing ,pleuritic CP ,or hemoptysis Cardio : No anginal CP, PND, orthopnea, palpitation GI : No abd.pain, n/v ,diarrhea or GI bleeding . 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 Musculoskel : No joint swelling , Derm : No rash Psych : Normal affect. Ext : No swelling ,calf pain PE. Pt. is alert awake in no distress. V.S As noted in the chart Head ,ear nose,throat and eyes : Normal. Neck : Supple with normal carotids. Lungs: Clear air entry. Heart : S1 & S2 normal with S4. No murmur. Abd : Soft non tender with normal bowel sounds. Neuro : Moves all ext. with no localized deficit. Ext : No edema with intact pulses.Non tender calves Derm : No rashes or decubitus ulcer. LABS/RADIOLOGY: ct chestBIL APICAL PNEUMONIA PLAN; IV AB AWAITING TB W/U Objective - Vital Signs/Intake and Output Vital Signs (last 24 hours): Temp Pulse Resp BP Pulse Ox 97.5 F L 72 20 126/61 98 11/25/17 00:00 11/25/17 00:00 11/25/17 00:00 11/25/17 00:00 11/25/17 00:00 Intake and Output: 11/25/17 11/25/17 11:59 23:59 Intake Total 220 Balance 220 - Medications Medications: Current Medications Albuterol/Ipratropium (Duoneb 3 Mg/0.5 Mg (3 Ml) Ud) 3 ml INH RQ6 [facility] Last Admin: 11/25/17 14:11 Dose: 3 ml Aspirin (Aspirin Chewable) 81 mg PO DAILY [facility] Last Admin: 11/25/17 09:42 Dose: 81 mg Cilostazol (Pletal) 50 mg PO BID [facility] Last Admin: 11/25/17 09:44 Dose: 50 mg Gabapentin (Neurontin) 300 mg PO DAILY [facility] Last Admin: 11/25/17 09:42 Dose: 300 mg Heparin Sodium (Porcine) (Heparin) 5,000 units SC Q12 [facility] Last Admin: 11/19/17 21:33 Dose: 5,000 units Home Med (Patient's Own Drops) 2 drop OU BID [facility] Last Admin: 11/25/17 09:46 Dose: 2 drop Azithromycin 500 mg/ Dextrose 250 mls @ 167 mls/hr IVPB Q24H [facility] Last Admin: 11/24/17 17:52 Dose: 167 mls/hr Ceftriaxone Sodium 1 gm/ (Sodium Chloride) 100 mls @ 50 mls/30 min IVPB Q12H [facility] Last Admin: 11/25/17 14:43 Dose: 50 mls/30 min Insulin Human Regular (Novolin R) 0 unit SC ACHS [facility] PRN Reason: Protocol Last Admin: 11/25/17 11:30 Dose: Not Given Losartan Potassium (Cozaar) 100 mg PO DAILY [facility] Last Admin: 11/25/17 09:42 Dose: 100 mg Metoprolol Tartrate (Lopressor) 50 mg PO BID [facility] Last Admin: 11/25/17 10:01 Dose: 50 mg - Labs Labs: 11/25/17 07:15 11/25/17 07:15 PT 13.0 SECONDS (9.7-12.2) H 11/19/17 13:24 INR 1.2 11/19/17 13:24 APTT 27 SECONDS (21-34) 11/19/17 13:24
--- NOTE | 2017-11-25 18:57 | CP.PCM.PN ---
Subjective - Date & Time of Evaluation Date of Evaluation: 11/25/17 Time of Evaluation: 18:50 - Subjective Subjective: Pt is seen and examined AFB X 2 are negative Objective - Vital Signs/Intake and Output Vital Signs (last 24 hours): Temp Pulse Resp BP Pulse Ox 97.3 F L 90 20 121/59 L 97 11/25/17 16:00 11/25/17 16:00 11/25/17 16:00 11/25/17 16:00 11/25/17 16:00 Intake and Output: 11/25/17 11/25/17 06:59 18:59 Intake Total 550 220 Output Total 400 Balance 150 220 - Medications Medications: Current Medications Albuterol/Ipratropium (Duoneb 3 Mg/0.5 Mg (3 Ml) Ud) 3 ml INH RQ6 [facility] Last Admin: 11/25/17 14:11 Dose: 3 ml Aspirin (Aspirin Chewable) 81 mg PO DAILY [facility] Last Admin: 11/25/17 09:42 Dose: 81 mg Cilostazol (Pletal) 50 mg PO BID [facility] Last Admin: 11/25/17 17:14 Dose: 50 mg Gabapentin (Neurontin) 300 mg PO DAILY [facility] Last Admin: 11/25/17 09:42 Dose: 300 mg Heparin Sodium (Porcine) (Heparin) 5,000 units SC Q12 [facility] Last Admin: 11/19/17 21:33 Dose: 5,000 units Home Med (Patient's Own Drops) 2 drop OU BID [facility] Last Admin: 11/25/17 17:13 Dose: 2 drop Azithromycin 500 mg/ Dextrose 250 mls @ 167 mls/hr IVPB Q24H [facility] Last Admin: 11/25/17 17:18 Dose: 167 mls/hr Ceftriaxone Sodium 1 gm/ (Sodium Chloride) 100 mls @ 50 mls/30 min IVPB Q12H [facility] Last Admin: 11/25/17 14:43 Dose: 50 mls/30 min Insulin Human Regular (Novolin R) 0 unit SC ACHS [facility] PRN Reason: Protocol Last Admin: 11/25/17 16:30 Dose: 2 unit Losartan Potassium (Cozaar) 100 mg PO DAILY [facility] Last Admin: 11/25/17 09:42 Dose: 100 mg Metoprolol Tartrate (Lopressor) 50 mg PO BID [facility] Last Admin: 11/25/17 17:10 Dose: 50 mg - Labs Labs: 11/25/17 07:15 11/25/17 07:15 PT 13.0 SECONDS (9.7-12.2) H 11/19/17 13:24 INR 1.2 11/19/17 13:24 APTT 27 SECONDS (21-34) 11/19/17 13:24 - Head Exam Head Exam: NORMAL INSPECTION - Eye Exam Eye Exam: Normal appearance - ENT Exam ENT Exam: Mucous Membranes Moist - Respiratory Exam Respiratory Exam: Rhonchi - Cardiovascular Exam Cardiovascular Exam: REGULAR RHYTHM, +S1, +S2 - GI/Abdominal Exam GI & Abdominal Exam: Soft, Normal Bowel Sounds Assessment and Plan - Assessment and Plan (Free Text) Assessment: Pneumonia ? Pulmonary TB COPD CHF Awaiting 3rd AFB Respiratory isolation Ceftrioxone and zithromax Awaiting QuantiFERON Gold Will consider for bronch if QuantiFERON Gold is positive
--- NOTE | 2017-11-25 22:09 | CP.PCM.PN ---
Subjective - Date & Time of Evaluation Date of Evaluation: 11/25/17 Time of Evaluation: 22:09 - Subjective Subjective: CHIEF COMPLAINTS TODAY : AFEBRILE less COUGH. SPUTUM - VE X [address] chest w/o contrast noted. 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 HEENT : N. Resp : +ve wheezing ,pleuritic CP ,or hemoptysis Cardio : No anginal CP, PND, orthopnea, palpitation GI : No abd.pain, n/v ,diarrhea or GI bleeding . 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 Musculoskel : No joint swelling , Derm : No rash Psych : Normal affect. Ext : No swelling ,calf pain PE. Pt. is alert awake in no distress. V.S As noted in the chart Head ,ear nose,throat and eyes : Normal. Neck : Supple with normal carotids. Lungs: B/L RHONCHI / LESS WHEEZE. Heart : S1 & S2 normal with S4. No murmur. Abd : Soft non tender with normal bowel sounds. Neuro : Moves all ext. with no localized deficit. Ext : No edema with intact pulses.Non tender calves Derm : No rashes or decubitus ulcer. LABS/RADIOLOGY: CT CHEST VIANNEY APICAL PNEUMONIA . ESR 105 11/25/17 LABS NOTED. PLAN; CONTINUE IV ROCEPHIN 1GM IV Q12 [facility]. 11/21/17. CONTINUE IV ZITHROMAX 500MG IV [id number] . 11/21/17 TB W/U. IN PROGRESS aWAIT QUANTIFERON GOLD tb TEST SPUTUM INDUCTION DAILY 3 SPUTUM'S.-P PULMONARY TOILET. Objective - Vital Signs/Intake and Output Vital Signs (last 24 hours): Temp Pulse Resp BP Pulse Ox 97.3 F L 90 20 121/59 L 97 11/25/17 16:00 11/25/17 16:00 11/25/17 16:00 11/25/17 16:00 11/25/17 16:00 Intake and Output: 11/25/17 11/26/17 18:59 06:59 Intake Total 220 Balance 220 - Medications Medications: Current Medications Albuterol/Ipratropium (Duoneb 3 Mg/0.5 Mg (3 Ml) Ud) 3 ml INH RQ6 [facility] Last Admin: 11/25/17 20:14 Dose: Not Given Aspirin (Aspirin Chewable) 81 mg PO DAILY [facility] Last Admin: 11/25/17 09:42 Dose: 81 mg Cilostazol (Pletal) 50 mg PO BID [facility] Last Admin: 11/25/17 17:14 Dose: 50 mg Gabapentin (Neurontin) 300 mg PO DAILY [facility] Last Admin: 11/25/17 09:42 Dose: 300 mg Heparin Sodium (Porcine) (Heparin) 5,000 units SC Q12 [facility] Last Admin: 11/19/17 21:33 Dose: 5,000 units Home Med (Patient's Own Drops) 2 drop OU BID [facility] Last Admin: 11/25/17 17:13 Dose: 2 drop Azithromycin 500 mg/ Dextrose 250 mls @ 167 mls/hr IVPB Q24H [facility] Last Admin: 11/25/17 17:18 Dose: 167 mls/hr Ceftriaxone Sodium 1 gm/ (Sodium Chloride) 100 mls @ 50 mls/30 min IVPB Q12H [facility] Last Admin: 11/25/17 14:43 Dose: 50 mls/30 min Insulin Human Regular (Novolin R) 0 unit SC ACHS [facility] PRN Reason: Protocol Last Admin: 11/25/17 21:51 Dose: Not Given Losartan Potassium (Cozaar) 100 mg PO DAILY [facility] Last Admin: 11/25/17 09:42 Dose: 100 mg Metoprolol Tartrate (Lopressor) 50 mg PO BID [facility] Last Admin: 11/25/17 17:10 Dose: 50 mg - Labs Labs: 11/25/17 07:15 11/25/17 07:15 PT 13.0 SECONDS (9.7-12.2) H 11/19/17 13:24 INR 1.2 11/19/17 13:24 APTT 27 SECONDS (21-34) 11/19/17 13:24
[2017-11-26] MEDS: Albuterol-Ipratrop 3 mg / 0.5 (3 ml) UD INH SCH ×3 (01:48→13:24)
[2017-11-26 08:03] VITALS: RESP 20
[2017-11-26] MEDS: (Novolin R) Insulin Human Regular 100 units/ml vial SC SCH ×2 (08:04→12:31)
[2017-11-26 08:32] LABS: BASO # 0.1 K/uL (0.0-0.2); BASO % 0.6 % (0.0-2.0); EOS # 0.3 K/uL (0.0-0.7); EOS % 3.3 % (0.0-4.0); HEMOGLOBIN 11.8 g/dL (11.0-16.0); LYMPH # 2.1 K/uL (1.0-4.3); LYMPH % 23.2 % (20.0-40.0); MEAN CORPUSCULAR HEMOGLOBIN 30.5 pg (27.0-31.0); MEAN CORPUSCULAR HGB CONC 34.3 g/dL (33.0-37.0); MEAN PLATELET VOLUME 9.3 fL (7.2-11.7); MONO # 0.8 K/uL (0.0-0.8); MONO % 8.5 % (0.0-10.0); NEUT # 5.8 K/uL (1.8-7.0); NEUT % 64.4 % (50.0-75.0); NRBC % 0.1 % (0.0-2.0); RBC 3.85 Mil/uL (3.80-5.20); RED CELL DISTRIBUTION WIDTH 14.5 % (11.5-14.5)
[2017-11-26 08:59] LABS: ALBUMIN 3.8 g/dL (3.5-5.0); ALT/SGPT 35 U/L (9-52); AST/SGOT 24 U/L (14-36); BLOOD UREA NITROGEN 9 mg/dL (7-17); CALCIUM 9.4 mg/dl (8.6-10.4); GFR AFRICAN-AMERICAN > 60; GFR NON-AFRICAN AMERICAN > 60
[2017-11-26] MEDS: Cilostazol 50 mg Tab UD PO SCH (11:03)
[2017-11-26] MEDS: AZELASTINE 0.05% OU SCH (12:09)
--- NOTE | 2017-11-26 13:18 | CP.PCM.PN ---
Subjective - Date & Time of Evaluation Date of Evaluation: 11/26/17 Time of Evaluation: 13:18 - Subjective Subjective: CHIEF COMPLAINTS TODAY : GEN WEAKNESS , WALKS WITH ASSISTANCE DEPRESSED ROS. HEENT : N. Resp : No wheezing ,pleuritic CP ,or hemoptysis Cardio : No anginal CP, PND, orthopnea, palpitation GI : No abd.pain, n/v ,diarrhea or GI bleeding . 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 Musculoskel : No joint swelling , Derm : No rash Psych : Normal affect. Ext : No swelling ,calf pain PE. Pt. is alert awake in no distress. V.S As noted in the chart Head ,ear nose,throat and eyes : Normal. Neck : Supple with normal carotids. Lungs: Clear air entry. Heart : S1 & S2 normal with S4. No murmur. Abd : Soft non tender with normal bowel sounds. Neuro : Moves all ext. with no localized deficit. Ext : No edema with intact pulses.Non tender calves Derm : No rashes or decubitus ulcer. LABS/RADIOLOGY: ct chestBIL APICAL PNEUMONIA PLAN; IV AB AWAITING TB W/U Objective - Vital Signs/Intake and Output Vital Signs (last 24 hours): Temp Pulse Resp BP Pulse Ox 97.9 F 85 20 134/62 96 11/26/17 07:58 11/26/17 07:58 11/26/17 07:58 11/26/17 07:58 11/26/17 07:58 Intake and Output: 11/26/17 11/26/17 11:59 23:59 Intake Total 340 Balance 340 - Medications Medications: Current Medications Albuterol/Ipratropium (Duoneb 3 Mg/0.5 Mg (3 Ml) Ud) 3 ml INH RQ6 [facility] Last Admin: 11/26/17 07:24 Dose: Not Given Aspirin (Aspirin Chewable) 81 mg PO DAILY [facility] Last Admin: 11/26/17 11:02 Dose: 81 mg Cilostazol (Pletal) 50 mg PO BID [facility] Last Admin: 11/26/17 11:03 Dose: 50 mg Gabapentin (Neurontin) 300 mg PO DAILY [facility] Last Admin: 11/26/17 11:03 Dose: 300 mg Heparin Sodium (Porcine) (Heparin) 5,000 units SC Q12 [facility] Last Admin: 11/19/17 21:33 Dose: 5,000 units Home Med (Patient's Own Drops) 2 drop OU BID [facility] Last Admin: 11/26/17 12:09 Dose: 2 drop Azithromycin 500 mg/ Dextrose 250 mls @ 167 mls/hr IVPB Q24H [facility] Last Admin: 11/25/17 17:18 Dose: 167 mls/hr Ceftriaxone Sodium 1 gm/ (Sodium Chloride) 100 mls @ 50 mls/30 min IVPB Q12H [facility] Last Admin: 11/26/17 01:39 Dose: 50 mls/30 min Insulin Human Regular (Novolin R) 0 unit SC ACHS [facility] PRN Reason: Protocol Last Admin: 11/26/17 12:31 Dose: 2 unit Losartan Potassium (Cozaar) 100 mg PO DAILY [facility] Last Admin: 11/26/17 11:02 Dose: 100 mg Metoprolol Tartrate (Lopressor) 50 mg PO BID [facility] Last Admin: 11/26/17 11:02 Dose: 50 mg - Labs Labs: 11/26/17 08:20 11/26/17 08:20 PT 13.0 SECONDS (9.7-12.2) H 11/19/17 13:24 INR 1.2 11/19/17 13:24 APTT 27 SECONDS (21-34) 11/19/17 13:24
[2017-11-26 15:53] VITALS: BP 115/60; PULSE 88; O2SAT 97
[2017-11-26 16:39] VITALS: TEMP 97.7
--- NOTE | 2017-11-26 16:53 | CP.PCM.PN ---
Subjective - Date & Time of Evaluation Date of Evaluation: 11/26/17 Time of Evaluation: 16:54 - Subjective Subjective: Alert, awake, no sob or distress. Objective - Vital Signs/Intake and Output Vital Signs (last 24 hours): Temp Pulse Resp BP Pulse Ox 97.7 F 88 20 115/60 97 11/26/17 15:30 11/26/17 15:30 11/26/17 15:30 11/26/17 15:30 11/26/17 15:30 Intake and Output: 11/26/17 11/26/17 06:59 18:59 Intake Total 340 Balance 340 - Medications Medications: Current Medications Albuterol/Ipratropium (Duoneb 3 Mg/0.5 Mg (3 Ml) Ud) 3 ml INH RQ6 [facility] Last Admin: 11/26/17 13:24 Dose: 3 ml Aspirin (Aspirin Chewable) 81 mg PO DAILY [facility] Last Admin: 11/26/17 11:02 Dose: 81 mg Cilostazol (Pletal) 50 mg PO BID [facility] Last Admin: 11/26/17 11:03 Dose: 50 mg Gabapentin (Neurontin) 300 mg PO DAILY [facility] Last Admin: 11/26/17 11:03 Dose: 300 mg Heparin Sodium (Porcine) (Heparin) 5,000 units SC Q12 [facility] Last Admin: 11/19/17 21:33 Dose: 5,000 units Home Med (Patient's Own Drops) 2 drop OU BID [facility] Last Admin: 11/26/17 12:09 Dose: 2 drop Azithromycin 500 mg/ Dextrose 250 mls @ 167 mls/hr IVPB Q24H [facility] Last Admin: 11/25/17 17:18 Dose: 167 mls/hr Ceftriaxone Sodium 1 gm/ (Sodium Chloride) 100 mls @ 50 mls/30 min IVPB Q12H [facility] Last Admin: 11/26/17 15:11 Dose: 50 mls/30 min Insulin Human Regular (Novolin R) 0 unit SC ACHS [facility] PRN Reason: Protocol Last Admin: 11/26/17 12:31 Dose: 2 unit Losartan Potassium (Cozaar) 100 mg PO DAILY [facility] Last Admin: 11/26/17 11:02 Dose: 100 mg Metoprolol Tartrate (Lopressor) 50 mg PO BID [facility] Last Admin: 11/26/17 11:02 Dose: 50 mg - Labs Labs: 11/26/17 08:20 11/26/17 08:20 PT 13.0 SECONDS (9.7-12.2) H 11/19/17 13:24 INR 1.2 11/19/17 13:24 APTT 27 SECONDS (21-34) 11/19/17 13:24 Assessment and Plan - Assessment and Plan (Free Text) Assessment: Patient seen and examined. Alert, oriented, afebrile, no sob or chest pains. AFB sputum negativex2. Discussed with DR Geren and DR Quiroz, plan to discharge home on po levaquin for 7 days. Advised to to follow up with PMD and DR Green in 1 week.
--- NOTE | 2017-11-26 16:53 | CARD ---
APPROVED REPORT EXAM: Two-dimensional and M-mode echocardiogram with Doppler and color Doppler. Other Information Quality : GoodRhythm : INDICATION Chest Pain Congestive Heart Failure DIZZINESS, CARDIAC FUNCTION 2D DIMENSIONS LVEF (%)55.0 (>50%) Mitral Valve E/A ratio0.0 TDI E/Lateral E'0.0E/Medial E'0.0 LEFT VENTRICLE The left ventricle cavity is small. There is severe concentric left ventricular hypertrophy. The left ventricular function is normal. The left ventricular ejection fraction is within the normal range. There is normal LV segmental wall motion. Transmitral Doppler flow pattern is Grade I-abnormal relaxation pattern. RIGHT VENTRICLE The right ventricle is normal size. There is normal right ventricular wall thickness. The right ventricular systolic function is normal. ATRIA The left atrium size is normal. The right atrium size is normal. AORTIC VALVE The aortic valve is moderately sclerotic. MITRAL VALVE The mitral valve leaflets are thickened and calcified. There is no mitral valve regurgitation noted. GREAT VESSELS The IVC is dilated. PERICARDIAL EFFUSION There is a small loculated anterior pericardial effusion. <Conclusion> The left ventricle cavity is small. There is severe concentric left ventricular hypertrophy. The left ventricular function is normal. The left ventricular ejection fraction is within the normal range. There is normal LV segmental wall motion. Transmitral Doppler flow pattern is Grade I-abnormal relaxation pattern.
[2017-11-27 01:26] LABS: TB ANTIGEN MINUS NIL 0.07 IU/mL
--- NOTE | 2017-11-27 11:21 | CP.PCM.DIS ---
Provider - Provider Date of Admission: 11/19/17 14:15 Attending physician: Fouzia Quiroz MD Time Spent in preparation of Discharge (in minutes): 35 Hospital Course - Lab Results Lab Results: Micro Results 11/21/17 14:30 Blood-Venous Blood Culture - Final NO GROWTH AFTER 5 DAYS 11/21/17 14:30 Blood-Venous Gram Stain - Final TEST NOT PERFORMED 11/21/17 17:12 Blood-Venous Blood Culture - Final NO GROWTH AFTER 5 DAYS 11/21/17 17:12 Blood-Venous Gram Stain - Final TEST NOT PERFORMED 11/23/17 11:57 Other: Please Indicate Mycobacterial Culture - Preliminary 11/23/17 16:10 Other: Please Indicate Mycobacterial Culture - Preliminary Most Recent Lab Values WBC 9.0 K/uL (4.8-10.8) 11/26/17 08:20 RBC 3.85 Mil/uL (3.80-5.20) 11/26/17 08:20 Hgb 11.8 g/dL (11.0-16.0) 11/26/17 08:20 Hct 34.3 % (34.0-47.0) 11/26/17 08:20 MCV 89.0 fL (81.0-99.0) 11/26/17 08:20 MCH 30.5 pg (27.0-31.0) 11/26/17 08:20 MCHC 34.3 g/dL (33.0-37.0) 11/26/17 08:20 RDW 14.5 % (11.5-14.5) 11/26/17 08:20 Plt Count 219 K/uL (130-400) 11/26/17 08:20 MPV 9.3 fL (7.2-11.7) 11/26/17 08:20 Neut % (Auto) 64.4 % (50.0-75.0) 11/26/17 08:20 Lymph % (Auto) 23.2 % (20.0-40.0) 11/26/17 08:20 Trego % (Auto) 8.5 % (0.0-10.0) 11/26/17 08:20 Eos % (Auto) 3.3 % (0.0-4.0) 11/26/17 08:20 Baso % (Auto) 0.6 % (0.0-2.0) 11/26/17 08:20 Neut # 5.8 K/uL (1.8-7.0) 11/26/17 08:20 Lymph # 2.1 K/uL (1.0-4.3) 11/26/17 08:20 Trego # 0.8 K/uL (0.0-0.8) 11/26/17 08:20 Eos # 0.3 K/uL (0.0-0.7) 11/26/17 08:20 Baso # 0.1 K/uL (0.0-0.2) 11/26/17 08:20 ESR 105 mm/hr (0-20) H 11/22/17 07:34 PT 13.0 SECONDS (9.7-12.2) H 11/19/17 13:24 INR 1.2 11/19/17 13:24 APTT 27 SECONDS (21-34) 11/19/17 13:24 Sodium 135 mmol/L (132-148) 11/26/17 08:20 Potassium 4.7 mmol/L (3.6-5.2) 11/26/17 08:20 Chloride 103 mmol/L (98-107) 11/26/17 08:20 Carbon Dioxide 21 mmol/L (22-30) L 11/26/17 08:20 Anion Gap 16 (10-20) 11/26/17 08:20 BUN 9 mg/dL (7-17) 11/26/17 08:20 Creatinine 0.9 mg/dL (0.7-1.2) 11/26/17 08:20 Est GFR ( Amer) > 60 11/26/17 08:20 Est GFR (Non-Af Amer) > 60 11/26/17 08:20 POC Glucose (mg/dL) 228 mg/dL (65-110) H 11/26/17 16:19 Random Glucose 121 mg/dL (65-105) H 11/26/17 08:20 Hemoglobin A1c 7.5 % (4.2-6.5) H 11/19/17 13:24 Calcium 9.4 mg/dl (8.6-10.4) 11/26/17 08:20 Phosphorus 3.0 mg/dL (2.5-4.5) 11/25/17 07:15 Magnesium 1.2 mg/dL (1.6-2.3) L 11/25/17 07:15 Total Bilirubin 0.5 mg/dL (0.2-1.3) 11/26/17 08:20 Direct Bilirubin 0.5 mg/dL (0.0-0.4) H 11/22/17 07:34 AST 24 U/L (14-36) 11/26/17 08:20 ALT 35 U/L (9-52) 11/26/17 08:20 Alkaline Phosphatase 54 U/L (38-126) 11/26/17 08:20 Troponin I 0.1080 ng/mL (0.00-0.120) 11/19/17 13:24 C-React Prot High Sens > 15.00 mg/L (1.00-3.00) H 11/22/17 07:34 NT-Pro-B Natriuret Pep 2670 pg/mL (0-900) H 11/22/17 07:34 Total Protein 7.6 g/dL (6.3-8.3) 11/26/17 08:20 Albumin 3.8 g/dL (3.5-5.0) 11/26/17 08:20 Globulin 3.8 gm/dL (2.2-3.9) 11/26/17 08:20 Albumin/Globulin Ratio 1.0 (1.0-2.1) 11/26/17 08:20 Triglycerides 93 mg/dL (0-149) D 11/19/17 13:24 Cholesterol 117 mg/dL (0-199) 11/19/17 13:24 LDL Cholesterol Direct 61 mg/dL (0-129) 11/19/17 13:24 HDL Cholesterol 32 mg/dL (30-70) 11/19/17 13:24 Procalcitonin < 0.05 NG/ML (0.19-0.49) L 11/22/17 07:34 Urine Color Queta (YELLOW) 11/19/17 14:49 Urine Clarity Hazy (Clear) 11/19/17 14:49 Urine pH 5.0 (5.0-8.0) 11/19/17 14:49 Ur Specific [place] 1.026 (1.003-1.030) 11/19/17 14:49 Urine Protein 1+ mg/dL (NEGATIVE) H 11/19/17 14:49 Urine Glucose (UA) Normal mg/dL (Normal) 11/19/17 14:49 Urine Ketones Negative mg/dL (NEGATIVE) 11/19/17 14:49 Urine Blood 2+ (NEGATIVE) H 11/19/17 14:49 Urine Nitrate Negative (NEGATIVE) 11/19/17 14:49 Urine Bilirubin 1+ (NEGATIVE) H 11/19/17 14:49 Urine Urobilinogen Normal mg/dL (0.2-1.0) 11/19/17 14:49 Ur Leukocyte Esterase 1+ Raymundo/uL (Negative) H 11/19/17 14:49 Urine WBC (Auto) 6 /hpf (0-5) H 11/19/17 14:49 Urine RBC (Auto) 12 /hpf (0-3) H 11/19/17 14:49 Ur Squamous Epith Cells 2 /hpf (0-5) 11/19/17 14:49 Urine Bacteria Rare (<OCC) 11/19/17 14:49 Hyaline Casts 6-10 /lpf (0-2) H 11/19/17 14:49 Ur L.pneumophila Ag Negative (NEGATIVE) 11/21/17 07:26 Mycoplasma pneumon IgM Negative (NEGATIVE) 11/22/17 07:34 TB Test (QFT) Nil 0.04 IU/mL 11/23/17 08:03 TB Test Mitogen - Nil 3.64 IU/mL 11/23/17 08:03 TB Test TB - Nil 0.07 IU/mL 11/23/17 08:03 TB Test (QFT) Negative (Negative) 11/23/17 08:03 - Hospital Course Hospital Course: BROUGHT TO ER AFTER A FALL WHILE GETTING OUT OF [employer] ON THE DAY OF ADMISSION . NO LOC/SEIZURES SUSTAINED MILD HEAD TRAUMA . ER , CT HEAD NEG FOR ACUTE ABNORMALITY , CR HAS INCREASED TO 3.0 FROM BASELINE 1.2 PAST HIST. T2DM .HTN. OFFICIAL REPOST OF CXR SHOWED INFILTRATE AND ID WAS CONSULTED IB AB WAS STARTED CT CHEST SHOWED BILATERAL APICAL INFILTRATE TB W/U INITIALLY SHOWED 2 NEG AFB SPUTUM , GOLD TEST PENDING PT AYMPTOMATIC , AFEBRILE AND V ANXIOUS TO GO HOME PT D/C , F/U ID AND PULM ON LEVAQUIN Discharge Exam - Head Exam Head Exam: NORMAL INSPECTION Discharge Plan - Discharge Medications Prescriptions: levoFLOXacin [Levaquin] 500 mg PO DAILY #7 tab - Follow Up Plan Condition: GOOD Disposition: HOME/ ROUTINE Instructions: Levofloxacin (By mouth), Acute Kidney Injury (DC) Additional Instructions: follow up with PMD in 1 week f/u with DR GREEN IN 1week levaquin 500mg po daily x7 days Referrals: Lara Green MD [Staff Provider] - Fouzia Quiroz MD [Staff Provider] -
== END 2017-11-26 17:28 | disposition home or self-care (01) | DRG 194 ==
LOC: C.ER 11:39 → C.9E 14:15 → C.3T 14:35
PROVIDERS: ADMIT Internal Medicine Cardiovascular Disease; ATTEND Internal Medicine Cardiovascular Disease
DX: J18.9 Pneumonia, unspecified organism (principal); J44.0 Chronic obstructive pulmonary disease with (acute) lower respiratory infection; E11.42 Type 2 diabetes mellitus with diabetic polyneuropathy; I11.0 Hypertensive heart disease with heart failure; I50.9 Heart failure, unspecified; J45.901 Unspecified asthma with (acute) exacerbation; W19.XXXA Unspecified fall, initial encounter; E78.00 Pure hypercholesterolemia, unspecified; I25.10 Atherosclerotic heart disease of native coronary artery without angina pectoris; E03.9 Hypothyroidism, unspecified; T14.90XA Injury, unspecified, initial encounter; N28.9 Disorder of kidney and ureter, unspecified

== ENCOUNTER 2017-12-03 21:31 | Inpatient (IN) | payer MEDICARE, OTHER ==
[2017-12-03 23:21] LABS: BASO # 0.1 K/uL (0.0-0.2); BASO % 0.6 % (0.0-2.0); EOS # 0.2 K/uL (0.0-0.7); EOS % 1.5 % (0.0-4.0); HEMOGLOBIN 11.2 g/dL (11.0-16.0); LYMPH # 2.2 K/uL (1.0-4.3); MEAN CELL VOLUME 88.6 fL (81.0-99.0); MEAN CORPUSCULAR HEMOGLOBIN 31.1 pg (27.0-31.0); MEAN CORPUSCULAR HGB CONC 35.1 g/dL (33.0-37.0); MEAN PLATELET VOLUME 9.3 fL (7.2-11.7); MONO % 9.5 % (0.0-10.0); NEUT % 67.4 % (50.0-75.0); RBC 3.59 Mil/uL (3.80-5.20); RED CELL DISTRIBUTION WIDTH 14.8 % (11.5-14.5); WHITE BLOOD COUNT 10.4 K/uL (4.8-10.8)
[2017-12-03 23:34] LABS: ALB/GLOB RATIO 1.1 (1.0-2.1); ALBUMIN 3.7 g/dL (3.5-5.0); CALCIUM 8.7 mg/dl (8.6-10.4)
--- NOTE | 2017-12-04 00:44 | CT ---
EXAM: CT Head Without Intravenous Contrast CLINICAL HISTORY: 82 years old, female; Injury or trauma; Fall; Initial encounter; Concussion / head injury; Additional info: Headache TECHNIQUE: Axial computed tomography images of the head/brain without intravenous contrast. All CT scans at this facility use one or more dose reduction techniques, viz.: automated exposure control; ma/kV adjustment per patient size (including targeted exams where dose is matched to indication; i.e. head); or iterative reconstruction technique. COMPARISON: No relevant prior studies available. FINDINGS: Brain: Moderate atrophy. No intracranial hemorrhage. No mass. Several scattered foci of decreased attenuation within periventricular/subcortical white matter. Probable chronic lacunar infarct about RIGHT basal ganglia. No edema. Ventricles: No hydrocephalus. Bones/joints: No acute fracture. Soft tissues: Unremarkable. Vasculature: Atherosclerotic disease of intracranial arteries. Sinuses: Scattered mild mucosal thickening of ethmoid sinuses. Air-fluid levels within maxillary sinuses. Mild mucous within RIGHT sphenoid sinus. LEFT frontal retention cyst. Mastoid air cells: No mastoid effusion. Orbits: Unremarkable as visualized. IMPRESSION: 1. No intracranial hemorrhage. 2. Nonspecific white matter changes. 3. Sinus disease. 4. Incidental/non-acute findings are described above.
--- NOTE | 2017-12-04 01:05 | C.PDOC ---
History Of Present Illness 82 year old female presents to the ER with family after patient fell at home due to a possible syncopal episode. As per family, patient lives alone; she was seen a week ago for the same complaint, was admitted and discharged home. Denies head injury, nausea, or vomiting. Chief Complaint (Nursing): Dizziness/Lightheaded History Per: Patient History/Exam Limitations: no limitations Onset/Duration Of Symptoms: Days Current Symptoms Are (Timing): Still Present Associated Symptoms Preceding Syncopal Episode: Lightheadedness Seizure Or Post-ictal Symptoms: None Possible Causative Factor(s): Other (Not known) Fall Associated With With Symptoms: Yes Recent travel outside of the [place]: No - Symptoms Of CVA Associated Symptoms: denies: Impaired Speech, Seizure Activity, New Vision Deficit(Left), New Vision Deficit(Right), Decreased Ability To Walk, New Confusion Past Medical History Reviewed: Historical Data, Nursing Documentation, Vital Signs Vital Signs: Last Vital Signs Temp 98.5 F 12/03/17 21:32 Pulse 104 H 12/03/17 21:32 Resp 18 12/03/17 21:32 BP 126/71 12/03/17 21:32 Pulse Ox 97 12/04/17 01:22 - Medical History PMH: Arthritis, Asthma, Bronchitis, CAD, CHF, COPD, Diabetes, HTN, Hypercholesterolemia, Hypothyroidism, Osteoporosis, Peripheral Edema - [facility] Procedures ASSISTANCE WITH RESPIRATORY VENTILATION, <24 HRS, CPAP (02/24/16) INSERTION OF ENDOTRACHEAL AIRWAY INTO TRACHEA, VIA OPENING (02/24/16) RESPIRATORY VENTILATION, GREATER THAN 96 CONSECUTIVE HOURS (02/24/16) Family History: States: Unknown Family Hx - Social History Hx Tobacco Use: No Hx Alcohol Use: No Hx Substance Use: No - Immunization History Hx Tetanus Toxoid Vaccination: No Hx Influenza Vaccination: Yes Hx Pneumococcal Vaccination: No Review Of Systems Constitutional: Negative for: Fever, Chills Cardiovascular: Negative for: Chest Pain, Palpitations Respiratory: Negative for: Shortness of Breath Gastrointestinal: Negative for: Nausea, Vomiting Neurological: Positive for: Other (Possible syncopal episode) Physical Exam - Physical Exam Appears: Non-toxic, No Acute Distress, Other (Alert, Conscious) Skin: Normal Color, Warm, Dry Head: Atraumatic, Normacephalic Eye(s): bilateral: Normal Inspection, PERRL, EOMI Oral Mucosa: Moist Neck: Normal, Supple Chest: Symmetrical, No Tenderness Cardiovascular: Rhythm Regular Respiratory: Normal Breath Sounds, No Rales, No Rhonchi, No Wheezing Gastrointestinal/Abdominal: Soft, No Tenderness Extremity: Tenderness (Bilateral ankles), No Deformity, No Swelling Neurological/Psych: Oriented x3, Normal Speech, Other (No focal deficits) ED Course And Treatment - Laboratory Results Result Diagrams: 12/03/17 23:18 12/03/17 23:18 O2 Sat by Pulse Oximetry: 97 (Room air) Pulse Ox Interpretation: Normal Progress Note: CT chest, CT head, EKG, CXR, bilateral ankle x-ray, and blood work ordered. Toradol administered. Disposition Discussed With Dr.: Fouzia Quiroz Doctor Will See Patient In The: Hospital Counseled Patient/Family Regarding: Diagnosis - Disposition Disposition: HOSPITALIZED Disposition Time: 01:41 Condition: STABLE Forms: [facility] (Armenian) - POA Present On Arrival: None - Clinical Impression Clinical Impression: Syncope, Renal insufficiency - Scribe Statement The provider has reviewed the documentation as recorded by the Scribtammy Marie All medical record entries made by the Markoibtammy were at my direction and personally dictated by me. I have reviewed the chart and agree that the record accurately reflects my personal performance of the history, physical exam, medical decision making, and the department course for this patient. I have also personally directed, reviewed, and agree with the discharge instructions and disposition.
[2017-12-04] MEDS ORDERED: Sodium Chloride 0.9% 1,000 ML IV ONE (01:27)
[2017-12-04 02:07] LABS: ABG ALLEN TEST POS; ARTERIAL BLOOD GAS HEMOGLOBIN 11.3 g/dL (11.7-17.4); ARTERIAL BLOOD GAS O2 SAT 97.9 % (95-98); ARTERIAL BLOOD GAS PCO2 27 mm/Hg (35-45); ARTERIAL BLOOD GAS PH 7.41 (7.35-7.45); ARTERIAL BLOOD GAS PO2 74 mm/Hg (80-100); ARTERIAL BLOOD GAS TCO2 17.9 mmol/L (22-28)
--- NOTE | 2017-12-04 02:22 | CT ---
EXAM: CT Chest Without Intravenous Contrast CLINICAL HISTORY: 82 years old, female; Pain; Chest pain; Patient HX: 11-21-17; Additional info: Widened mediastinum TECHNIQUE: Axial computed tomography images of the chest without intravenous contrast. All CT scans at this facility use one or more dose reduction techniques, viz.: automated exposure control; ma/kV adjustment per patient size (including targeted exams where dose is matched to indication; i.e. head); or iterative reconstruction technique. Coronal and sagittal reformatted images were created and reviewed. COMPARISON: CT - CHEST W/O CONTRAST 2017-11-21 16:57 FINDINGS: Limitations: Lack of intravenous contrast. Motion artifact - mild. Lungs: Mosaic pattern of lung parenchyma with scattered groundglass opacities, slightly decreased from previous examination. Interlobular septal thickening. Mild atelectasis/scarring. Pleural space: No pneumothorax. No significant effusion. Heart: Mild cardiomegaly. No significant pericardial effusion. Coronary artery calcifications. Valvular calcifications. Thyroid: Few small calcifications. Stable 1.5 cm nodule within isthmus. Bones/joints: Degenerative changes of spine. No acute fracture. Soft tissues: Unremarkable. Vasculature: [id number] atherosclerotic disease. No aneurysm. Lymph nodes: Several subcentimeter short axis mediastinal lymph nodes. Adrenals: Mild hypertrophy of adrenal glands. IMPRESSION: 1. Mosaic pattern of lung parenchyma with groundglass opacities and interlobular septal thickening, nonspecific. DDX: Interstitial edema, interstitial pneumonia, interstitial lung disease. Clinical correlation is needed. 2. Thyroid nodule. Followup as clinically warranted. 3. Incidental/non-acute findings are described above.
[2017-12-04 03:20] LABS: CK-MB 1.66 ng/mL (0.0-3.38); TROPONIN I 0.047 ng/mL (0.00-0.120)
[2017-12-04] MEDS ORDERED: Sodium Chloride 0.9% 1,000 ML ONE (03:28)
--- NOTE | 2017-12-04 08:33 | RAD ---
Chest x-ray single frontal view History: Dizziness. Comparison: 11/19/2017 Findings: Diffuse increased interstitial lung markings suggestive for underlying infiltrate and or edema. Clinical correlation. Patchy increased markings at the lung bases. Cardiomegaly. Tortuous ectatic aorta. Scattered nodular densities throughout both lung traylor. Degenerative changes in the spine with paravertebral osteophytes. Impression: Diffuse increased interstitial lung markings suggestive for underlying infiltrate and or edema. Clinical correlation. Patchy increased markings at the lung bases. Cardiomegaly. Tortuous ectatic aorta. Scattered nodular densities throughout both lung traylor.
[2017-12-04] MEDS: (Novolin R) Insulin Human Regular 100 units/ml vial SC SCH ×4 (08:53→21:46)
--- NOTE | 2017-12-04 09:23 | RAD ---
PROCEDURE: HISTORY: injury/ pain COMPARISON: MR foot 08/20/2015 right foot x-ray 04/06/2017. No ankle specific imaging studies noted TECHNIQUE: Three views each ankle FINDINGS: Left ankle: Exuberant osseous hypertrophic changes dorsal carried navicular region noted navicular bone appears dysmorphic prior trauma and/or possible prior osteo necrosis not excluded. Decreased left plantar arch inferred. Medial tibial talar cystic arthrosis. Os peroneum suspect. Inferior and posterior calcaneal spurring 2 x 1 mm ossification anterior tibiotalar soft tissue possible flake chip fracture fragment donor site not noted and chronicity unknown. Talar dome intact. No ankle mortise widening. Right ankle tarsal metatarsal arthro pathic dorsal osseous hypertrophic change present. Inferior and posterior calcaneal spurring. Medial tibiotalar cystic arthrosis. Talar dome intact. No ankle mortise widening IMPRESSION: Bilateral: Multifocal hypertrophic/cystic arthrosis. No definitive acute fracture appreciated. No ankle mortise widening. Asymmetrical left midfoot partial collapse suspect with dorsal yesy navicular exuberant osseous productive changes. Prior trauma here suspect ; superimposed osteo necrosis not excluded ; at minimum, sclerotic intertarsal arthrosis present. Bilateral calcaneal spurs
[2017-12-04] MEDS ORDERED: AZELASTINE HCL 0.05% OU SCH (10:00)
[2017-12-04] MEDS ORDERED: Home Med 1 UNIT (Sitagliptin Phos/Metformin Hcl [Janumet 50-1,000 Mg Tablet] 1 EACH) PO SCH (10:00)
[2017-12-04] MEDS ORDERED: HYDROCHLOROTHIAZIDE PO SCH (10:00)
[2017-12-04] MEDS ORDERED: Home Med 1 UNIT (Multivitamin [Multivitamins] 1 EACH) PO SCH (10:00)
[2017-12-04] MEDS ORDERED: LOSARTAN PO SCH (10:00)
[2017-12-04] MEDS: Cilostazol 50 mg Tab UD PO SCH ×2 (11:30→17:35)
[2017-12-04] MEDS: Pantoprazole 40 mg EC Tab PO SCH (11:30)
[2017-12-04 11:46] LABS: INR 1.2; PROTHROMBIN TIME 13.5 SECONDS (9.7-12.2)
--- NOTE | 2017-12-04 11:58 | CARD ---
APPROVED REPORT EKG Measurement Heart [id number] <Conclusion> Sinus tachycardia with premature supraventricular complexes and fusion complexes Left ventricular hypertrophy with repolarization abnormality Abnormal ECG
[2017-12-04 12:27] LABS: CK-MB 1.76 ng/mL (0.0-3.38); TROPONIN I 0.042 ng/mL (0.00-0.120)
[2017-12-04] MEDS ORDERED: (Novolin R) Insulin Human Regular 100 units/ml vial ONE (13:25)
--- NOTE | 2017-12-04 13:57 | CP.PCM.HP ---
History of Present Illness - History of Present Illness History of Present Illness: COMPREHENSIVE HISTORY & PHYSICAL EXAM HPI ADMITTED FOR DIZZINESS AND FREQUENT FALLING HAD SIMILAR COMPLAINTS LAST MONTH AND WAS HOSPITALIZED IN . DURING THE LAST VISIT , PT HAD VIANNEY APICAL INFILTRATE AND PRELIMINARY W/U FOR TB WAS NEG PT WENT HOME ON LEVAQUIN FAMILY BROUGHT THE PT BACK TO HOSPITAL WITH WEAKNESS AND DIZZINESS AND FALLS PT LAST ADMISSION DECLINED SHORT TERM REHAB LIVES ALONE PAST HIST. HTN.T2DM COPD PERSONAL HIST: Smoking. N Alcohol. N Allergy N Travel_- . FAMILY HIST : ROS : Constitutional: Negative for weight change, Eyes: Negative for redness, swelling, itching, discharge, vision changes, blurry vision, double vision, glaucoma, cataracts, Ears: Negative for hearing loss, ringing, , tinnitus, vertigo Nose: Negative for rhinorrhea, stuffiness, sniffing, itching, postnasal drip, discoloration, nasal congestion and epistaxis. Throat: Negative for throat clearing, sore throat, hoarseness, difficulty swallowing and difficulty speaking. Respiratory: Negative for cough, , sputum production, chest tightness, wheezing, pleuritic chest pain ,daytime somnolence, chronic cough, hemoptysis, snoring at night, Cardiovascular: Negative for chest pain, palpitations, orthopnea, PND, Edema of legs, leg cramps, angina, claudication, , irregular heartbeat, Neurology: Negative for irritability, muscle weakness, numbness and tingling, seizures, tremors, migraines, slurred speech, , recurrent headaches Gastrointestinal: Negative for difficulty swallowing, diarrhea, constipation, black stools, rectal bleeding, nausea, flatulence, reflux, poor appetite, changes in bowel habits, abdominal pain Genitourinary: Negative for frequent urination, hematuria, discharge, incontinence, urinary retention, frequent UTI, Psychiatric: Negative for depression, anxiety/panic, suicidal tendencies, Musculoskeletal: Negative for swollen joints, back pain, , neck pain, morning stiffness of joints, . Skin: Negative for rash, ulcers, itching, dry skin and pigmented lesions. P/E: Constitutional: Appears stated age and in no apparent distress. Head: Normocephalic. Ears: External ear canals patent without inflammation. Tympanic membranes intact with normal light reflex and landmark. Eyes: Pupils are central, bilaterally equal, symmetrical and reacts to light with normal movements and no icterus or pallor. Nose: External nares are patent. Mucosa is pink Mouth-Throat: Good general appearance and condition. No post-pharyngeal/oropharyngeal erythema and tonsillar hypertrophy. Good dental hygiene. Neck-Lymphatic: Neck is supple with normal ROM, no thyromegaly, lymph nodes or masses. JVD is normal with no carotid bruit. Lungs: Clear to percussion and auscultation with bilateral RONCHI Cardiovascular: S1 and S2 are normal with no murmurs, gallops and rub. GI Exam: No hepatomegaly. Abdomen is soft and non-tender. No Organomegaly , masses or hernias are evident and bowel sounds are normal and active. Neurology: Higher function and all cranial nerves intact, with no gross motor or sensory deficit. Superficial and deep reflexes are normal with downwards planters. No cerebellar deficit with normal gait. Musculoskeletal: No tender spots with normal curvature of the spine with no swelling or restricted ROM of the small and large joints. Extremities: Homans sign absent. Intact pulses with no pitting edema, calf tenderness or skin color changes. Skin: No rash, eruptions or abnormal skin pigmentation LAB/RADIOLOGY: ASSESMENT : RESOLVING VIANNEY APICAL PNEUMONIA WEAKNESS AND DIZZY SPELL T2DM PLAN: SEE ORDERS Present on Admission - Present on Admission Any Indicators Present on Admission: No Past Patient History - Past Medical History & Family History Past Medical History?: Yes - Past Social History Smoking Status: Never Smoked - CARDIAC Hx Congestive Heart Failure: Yes Hx Hypercholesterolemia: Yes Hx Hypertension: Yes Hx Peripheral Edema: Yes - PULMONARY Hx Asthma: Yes Hx Bronchitis: Yes Hx Chronic Obstructive Pulmonary Disease (COPD): Yes - NEUROLOGICAL Hx Neurological Disorder: No Hx Dizziness: Yes - HEENT Hx HEENT Problems: Yes Hx Cataracts: Yes (cataract surgery 3 years ago?) Hx Glaucoma: No Other/Comment: wear eyeglasses - RENAL Hx Chronic Kidney Disease: No - ENDOCRINE/METABOLIC Hx Hypothyroidism: Yes - HEMATOLOGICAL/ONCOLOGICAL Hx Blood Disorders: No - INTEGUMENTARY Hx Dermatological Problems: No - MUSCULOSKELETAL/RHEUMATOLOGICAL Hx Arthritis: Yes Hx Osteoporosis: Yes - GASTROINTESTINAL Hx Gastrointestinal Disorders: No - GENITOURINARY/GYNECOLOGICAL Hx Genitourinary Disorders: No - PSYCHIATRIC Hx Substance Use: No - SURGICAL HISTORY Hx Surgeries: Yes Hx Orthopedic Surgery: Yes (left arm surgery 8 yrs ago) - ANESTHESIA Hx Anesthesia: Yes Hx Anesthesia Reactions: No Hx Malignant Hyperthermia: No Meds Allergies/Adverse Reactions: Allergies Allergy/AdvReac Type Severity Reaction Status Date / Time No Known Allergies Allergy Verified 12/03/17 21:47 Results - Vital Signs Recent Vital Signs: Last Vital Signs Temp 97.9 F 12/04/17 13:24 Pulse 76 12/04/17 13:24 Resp 17 12/04/17 13:24 BP 131/61 12/04/17 13:24 Pulse Ox 99 12/04/17 13:24 - Labs Result Diagrams: 12/03/17 23:18 12/03/17 23:18 Labs: Laboratory Results - last 24 hr 12/03/17 12/03/17 12/04/17 23:18 23:18 02:02 WBC 10.4 RBC 3.59 L Hgb 11.2 Hct 31.8 L MCV 88.6 MCH 31.1 H MCHC 35.1 RDW 14.8 H Plt Count 173 MPV 9.3 Neut % (Auto) 67.4 Lymph % (Auto) 21.0 Ida % (Auto) 9.5 Eos % (Auto) 1.5 Baso % (Auto) 0.6 Neut # (Auto) 7.0 Lymph # (Auto) 2.2 Ida # (Auto) 1.0 H Eos # (Auto) 0.2 Baso # (Auto) 0.1 PT INR APTT Puncture Site Rr pCO2 27 L pO2 74 L HCO3 20.0 L ABG pH 7.41 ABG Total CO2 17.9 L ABG O2 Saturation 97.9 ABG Base Excess -6.3 L ABG Hemoglobin 11.3 L ABG Carboxyhemoglobin 1.9 H POC ABG HHb (Measured) 2.0 ABG Methemoglobin 1.3 Neftali Test Pos A-a O2 Difference 42.0 Respiratory Index 0.6 Hgb O2 Saturation 94.8 L FiO2 21.0 Sodium 134 Potassium 4.2 Chloride 106 Carbon Dioxide 16 L Anion Gap 17 BUN 26 H Creatinine 1.3 H Est GFR ( Amer) 48 Est GFR (Non-Af Amer) 39 POC Glucose (mg/dL) Random Glucose 81 Calcium 8.7 Total Bilirubin 0.5 AST 34 ALT 37 Alkaline Phosphatase 50 Total Creatine Kinase CK-MB (Mass) Troponin I Total Protein 7.2 Albumin 3.7 Globulin 3.4 Albumin/Globulin Ratio 1.1 12/04/17 12/04/17 12/04/17 02:36 07:37 11:35 WBC RBC Hgb Hct MCV MCH MCHC RDW Plt Count MPV Neut % (Auto) Lymph % (Auto) Ida % (Auto) Eos % (Auto) Baso % (Auto) Neut # (Auto) Lymph # (Auto) Ida # (Auto) Eos # (Auto) Baso # (Auto) PT INR APTT Puncture Site pCO2 pO2 HCO3 ABG pH ABG Total CO2 ABG O2 Saturation ABG Base Excess ABG Hemoglobin ABG Carboxyhemoglobin POC ABG HHb (Measured) ABG Methemoglobin Neftali Test A-a O2 Difference Respiratory Index Hgb O2 Saturation FiO2 Sodium Potassium Chloride Carbon Dioxide Anion Gap BUN Creatinine Est GFR ( Amer) Est GFR (Non-Af Amer) POC Glucose (mg/dL) 72 Random Glucose Calcium Total Bilirubin AST ALT Alkaline Phosphatase Total Creatine Kinase 130 116 CK-MB (Mass) 1.66 1.76 Troponin I 0.0470 0.0420 Total Protein Albumin Globulin Albumin/Globulin Ratio 12/04/17 12/04/17 11:35 11:51 WBC RBC Hgb Hct MCV MCH MCHC RDW Plt Count MPV Neut % (Auto) Lymph % (Auto) Ida % (Auto) Eos % (Auto) Baso % (Auto) Neut # (Auto) Lymph # (Auto) Ida # (Auto) Eos # (Auto) Baso # (Auto) PT 13.5 H INR 1.2 APTT 29 Puncture Site pCO2 pO2 HCO3 ABG pH ABG Total CO2 ABG O2 Saturation ABG Base Excess ABG Hemoglobin ABG Carboxyhemoglobin POC ABG HHb (Measured) ABG Methemoglobin Neftali Test A-a O2 Difference Respiratory Index Hgb O2 Saturation FiO2 Sodium Potassium Chloride Carbon Dioxide Anion Gap BUN Creatinine Est GFR ( Amer) Est GFR (Non-Af Amer) POC Glucose (mg/dL) 152 H Random Glucose Calcium Total Bilirubin AST ALT Alkaline Phosphatase Total Creatine Kinase CK-MB (Mass) Troponin I Total Protein Albumin Globulin Albumin/Globulin Ratio
[2017-12-04] MEDS: Multiple Vitamins Tab PO SCH (14:41)
[2017-12-04] MEDS ORDERED: Naphazoline-Pheniramine Ophth Soln OU SCH (18:00)
--- NOTE | 2017-12-04 19:21 | CP.PCM.CON ---
History of Present Illness - History of Present Illness History of Present Illness: INFECTIOUS DISEASE CONSULT; HPI; 82-year-old female was admitted as she is brought in by family members for dizziness and frequent falling. Patient has multiple medical problems including recent pneumonia, exacerbation of bronchial asthma, bronchitis, arthritis, CHF, CAD with diabetes, hypertension , hypercholesterolemia, hypothyroidism and osteoporosis. Patient was recently worked up for TB but her QuantiFERON Gold TB test came back negative. Patient's sputum times from 11/23/17 and 11/26/17 3 specimens have been negative for AFB smear and culture is pending. Patient denies any previous history of TB or contact with TB. Patient presently also complaining of poor appetite and abdominal pain. Patient denies any diarrhea or obstipation. States that she gets abdominal pain as soon as she eats and her intake is poor. He denies any melena or dark colored stools. Patient also denies any night sweats or loss of weight. INFECTIOUS DISEASE CONSULTATION REQUESTED BY PMD FOR FOLLOW-UP ON HER TB W/U. WILL PMH; ABOVE. SOCIAL HISTORY DENIES SMOKING OR DRINKING OR ANY SUBSTANCE ABUSE. lIVES ALONE PER FAMILY MEMBERS. fAMILY HISTORY; UNREMARKABLE IMMUNIZATIONS; UP-TO-DATE ON INFLUENZA VACCINATION. DOES NOT KNOW PNEUMOCOCCAL OR TETANUS TOXOID VACCINATION MEDS ; REVIEWED Review of Systems - Constitutional Constitutional: Frequent Falls, Weakness. absent: Chills, Fever, Night Sweats, Weight Loss - EENT Eyes: absent: Change in Vision, Floaters Nose/Mouth/Throat: absent: Dry Mouth - Cardiovascular Cardiovascular: Dyspnea on Exertion. absent: Chest Pain, Dyspnea - Respiratory Respiratory: absent: Cough, Hemoptysis - Gastrointestinal Gastrointestinal: Abdominal Pain, Bloating. absent: Constipation, Diarrhea, Nausea, Vomiting - Genitourinary Genitourinary: absent: Freq UTI - Musculoskeletal Musculoskeletal: Abnormal Gait - Neurological Neurological: Abnormal Gait, Dizziness, Frequent Falls - Psychiatric Psychiatric: Anxiety, Change in Appetite, Depression. absent: Memory Loss - Hematologic/Lymphatic Hematologic: As Per HPI. absent: Easy Bruising, Lymphadenopathy Past Patient History - Past Medical History & Family History Past Medical History?: Yes - Past Social History Smoking Status: Never Smoked - CARDIAC Hx Cardiac Disorders: Yes Hx Congestive Heart Failure: Yes Hx Hypercholesterolemia: Yes Hx Hypertension: Yes Hx Peripheral Edema: Yes - PULMONARY Hx Respiratory Disorders: Yes Hx Asthma: Yes Hx Bronchitis: Yes Hx Chronic Obstructive Pulmonary Disease (COPD): Yes - NEUROLOGICAL Hx Neurological Disorder: Yes Hx Dizziness: Yes - HEENT Hx HEENT Problems: Yes Hx Cataracts: Yes (cataract surgery 3 years ago?) Hx Glaucoma: No Other/Comment: wear eyeglasses - RENAL Hx Chronic Kidney Disease: No - ENDOCRINE/METABOLIC Hx Hypothyroidism: Yes - HEMATOLOGICAL/ONCOLOGICAL Hx Blood Disorders: No - INTEGUMENTARY Hx Dermatological Problems: No - MUSCULOSKELETAL/RHEUMATOLOGICAL Hx Arthritis: Yes Hx Falls: Yes Hx Osteoporosis: Yes - GASTROINTESTINAL Hx Gastrointestinal Disorders: No - GENITOURINARY/GYNECOLOGICAL Hx Genitourinary Disorders: No - PSYCHIATRIC Hx Substance Use: No - SURGICAL HISTORY Hx Surgeries: Yes Hx Orthopedic Surgery: Yes (left arm surgery 8 yrs ago) - ANESTHESIA Hx Anesthesia: Yes Hx Anesthesia Reactions: No Hx Malignant Hyperthermia: No Has any member of the family had a problem w/ anesthesia?: No Meds Allergies/Adverse Reactions: Allergies Allergy/AdvReac Type Severity Reaction Status Date / Time No Known Allergies Allergy Verified 12/03/17 21:47 - Medications Medications: Current Medications Aspirin (Aspirin Chewable) 81 mg PO DAILY [facility] Last Admin: 12/04/17 11:30 Dose: 81 mg Cilostazol (Pletal) 50 mg PO BID [facility] Last Admin: 12/04/17 17:35 Dose: 50 mg Ferrous Sulfate (Feosol) 325 mg PO DAILY [facility] Last Admin: 12/04/17 11:30 Dose: 325 mg Gabapentin (Neurontin) 300 mg PO DAILY [facility] Last Admin: 12/04/17 11:30 Dose: 300 mg Heparin Sodium (Porcine) (Heparin) 5,000 units SC Q12 [facility] Home Med (Azelastine Hcl [Azelastine Hcl]) 0.05 % OU BID [facility] Hydrochlorothiazide (Hydrodiuril) 25 mg PO DAILY [facility] Last Admin: 12/04/17 14:41 Dose: 25 mg Insulin Human Regular (Novolin R) 0 unit SC ACHS [facility] PRN Reason: Protocol Last Admin: 12/04/17 17:16 Dose: Not Given Losartan Potassium (Cozaar) 100 mg PO DAILY [facility] Last Admin: 12/04/17 14:41 Dose: 100 mg [facility] Last Admin: 12/04/17 17:35 Dose: 1,000 mg Metoprolol Tartrate (Lopressor) 50 mg PO BID [facility] Last Admin: 12/04/17 17:35 Dose: 50 mg Multivitamins (Hexavitamin) 1 tab PO DAILY [facility] Last Admin: 12/04/17 14:41 Dose: 1 tab Pantoprazole Sodium (Protonix Ec Tab) 40 mg PO DAILY [facility] Last Admin: 12/04/17 11:30 Dose: 40 mg Rosuvastatin Calcium (Crestor) [address] [facility] Sitagliptin Phosphate (Januvia) 100 mg PO DAILY [facility] Last Admin: 12/04/17 14:41 Dose: 100 mg Physical Exam - Constitutional Appears: No Acute Distress - Head Exam Head Exam: NORMAL INSPECTION - Eye Exam Eye Exam: EOMI, PERRL - ENT Exam ENT Exam: Normal Oropharynx - Neck Exam Neck exam: Positive for: Normal Inspection - Respiratory Exam Respiratory Exam: Clear to Auscultation Bilateral - Cardiovascular Exam Cardiovascular Exam: REGULAR RHYTHM, +S1, +S2 - GI/Abdominal Exam GI & Abdominal Exam: Normal Bowel Sounds, Soft, Tenderness (generalized.) - Extremities Exam Extremities exam: Positive for: pedal pulses present. Negative for: calf tenderness, pedal edema - Neurological Exam Neurological exam: Alert, CN II-XII Intact, Oriented x3, Reflexes Normal - Psychiatric Exam Psychiatric exam: Normal Mood - Skin Skin Exam: Normal Color, Warm Results - Vital Signs Recent Vital Signs: Last Vital Signs Temp 97.2 F L 12/04/17 16:11 Pulse 76 12/04/17 18:50 Resp 20 12/04/17 16:11 BP 114/72 12/04/17 16:11 Pulse Ox 98 12/04/17 16:11 - Labs Result Diagrams: 12/03/17 23:18 12/03/17 23:18 Labs: Laboratory Results - last 24 hr 12/03/17 12/03/17 12/04/17 23:18 23:18 02:02 WBC 10.4 RBC 3.59 L Hgb 11.2 Hct 31.8 L MCV 88.6 MCH 31.1 H MCHC 35.1 RDW 14.8 H Plt Count 173 MPV 9.3 Neut % (Auto) 67.4 Lymph % (Auto) 21.0 Jackson % (Auto) 9.5 Eos % (Auto) 1.5 Baso % (Auto) 0.6 Neut # (Auto) 7.0 Lymph # (Auto) 2.2 Jackson # (Auto) 1.0 H Eos # (Auto) 0.2 Baso # (Auto) 0.1 PT INR APTT Puncture Site Rr pCO2 27 L pO2 74 L HCO3 20.0 L ABG pH 7.41 ABG Total CO2 17.9 L ABG O2 Saturation 97.9 ABG Base Excess -6.3 L ABG Hemoglobin 11.3 L ABG Carboxyhemoglobin 1.9 H POC ABG HHb (Measured) 2.0 ABG Methemoglobin 1.3 Neftali Test Pos A-a O2 Difference 42.0 Respiratory Index 0.6 Hgb O2 Saturation 94.8 L FiO2 21.0 Sodium 134 Potassium 4.2 Chloride 106 Carbon Dioxide 16 L Anion Gap 17 BUN 26 H Creatinine 1.3 H Est GFR ( Amer) 48 Est GFR (Non-Af Amer) 39 POC Glucose (mg/dL) Random Glucose 81 Calcium 8.7 Total Bilirubin 0.5 AST 34 ALT 37 Alkaline Phosphatase 50 Total Creatine Kinase CK-MB (Mass) Troponin I Total Protein 7.2 Albumin 3.7 Globulin 3.4 Albumin/Globulin Ratio 1.1 12/04/17 12/04/17 12/04/17 02:36 07:37 11:35 WBC RBC Hgb Hct MCV MCH MCHC RDW Plt Count MPV Neut % (Auto) Lymph % (Auto) Jackson % (Auto) Eos % (Auto) Baso % (Auto) Neut # (Auto) Lymph # (Auto) Jackson # (Auto) Eos # (Auto) Baso # (Auto) PT INR APTT Puncture Site pCO2 pO2 HCO3 ABG pH ABG Total CO2 ABG O2 Saturation ABG Base Excess ABG Hemoglobin ABG Carboxyhemoglobin POC ABG HHb (Measured) ABG Methemoglobin Neftali Test A-a O2 Difference Respiratory Index Hgb O2 Saturation FiO2 Sodium Potassium Chloride Carbon Dioxide Anion Gap BUN Creatinine Est GFR ( Amer) Est GFR (Non-Af Amer) POC Glucose (mg/dL) 72 Random Glucose Calcium Total Bilirubin AST ALT Alkaline Phosphatase Total Creatine Kinase 130 116 CK-MB (Mass) 1.66 1.76 Troponin I 0.0470 0.0420 Total Protein Albumin Globulin Albumin/Globulin Ratio 12/04/17 12/04/17 12/04/17 11:35 11:51 17:07 WBC RBC Hgb Hct MCV MCH MCHC RDW Plt Count MPV Neut % (Auto) Lymph % (Auto) Jackson % (Auto) Eos % (Auto) Baso % (Auto) Neut # (Auto) Lymph # (Auto) Jackson # (Auto) Eos # (Auto) Baso # (Auto) PT 13.5 H INR 1.2 APTT 29 Puncture Site pCO2 pO2 HCO3 ABG pH ABG Total CO2 ABG O2 Saturation ABG Base Excess ABG Hemoglobin ABG Carboxyhemoglobin POC ABG HHb (Measured) ABG Methemoglobin Neftali Test A-a O2 Difference Respiratory Index Hgb O2 Saturation FiO2 Sodium Potassium Chloride Carbon Dioxide Anion Gap BUN Creatinine Est GFR ( Amer) Est GFR (Non-Af Amer) POC Glucose (mg/dL) 152 H 110 Random Glucose Calcium Total Bilirubin AST ALT Alkaline Phosphatase Total Creatine Kinase CK-MB (Mass) Troponin I Total Protein Albumin Globulin Albumin/Globulin Ratio - Imaging and Cardiology CT scan - chest Status: Report reviewed by me (12/04/17-consistent with mosaic pattern of lung parenchyma with groundglass opacities-nonspecific, interstitial edema, interstitial lung disease. Incidental thyroid nodule to follow up clinically. See full report.) Assessment & Plan (1) Syncope Status: Acute (2) Interstitial lung disease Status: Acute (3) Congestive heart failure Status: Acute (4) Dizziness Status: Acute (5) History of fall Status: Acute - Assessment and Plan (Free Text) Plan: PLAN; W/U FOR TB IS NEGATIVE, WITH NEGATIVE qUANTIferon gOLD tb TEST. CT OF THE CHEST 12/04/17 REVIEWED CONSISTENT WITH PROBABLY CHRONIC NONSPECIFIC MOSAIC PATTERN OF LUNG PARENCHYMA/AND INTERSTITIAL LUNG DISEASE . PATIENT PRESENTLY COMPLAINING OF ABDOMINAL PAINS,AND BLOATING. PATIENT ALREADY STARTED ON pROTONIX. STOOLS FOR C. DIFFICILE RECENT HISTORY OF ANTIBIOTIC THERAPY. CT OF THE ABDOMEN AND PELVIS WITH BY MOUTH CONTRAST R/O MASS VERSUS COLITIS. PATIENT PRESENTLY UNDERGOING WORKUP FOR SYNCOPE. GAIT TRAINING AND PT. NO NEED FOR ISOLATION. wILL FOLLOW ALONG WITH YOU.
[2017-12-05 07:39] LABS: BASO % 0.8 % (0.0-2.0); EOS # 0.2 K/uL (0.0-0.7); EOS % 2.6 % (0.0-4.0); LYMPH # 1.6 K/uL (1.0-4.3); LYMPH % 25.5 % (20.0-40.0); MEAN CELL VOLUME 88.8 fL (81.0-99.0); MEAN CORPUSCULAR HGB CONC 34.9 g/dL (33.0-37.0); MEAN PLATELET VOLUME 9.7 fL (7.2-11.7); MONO # 0.6 K/uL (0.0-0.8); MONO % 10.5 % (0.0-10.0); NEUT # 3.7 K/uL (1.8-7.0); NEUT % 60.6 % (50.0-75.0); RBC 3.53 Mil/uL (3.80-5.20); RED CELL DISTRIBUTION WIDTH 14.5 % (11.5-14.5); WHITE BLOOD COUNT 6.1 K/uL (4.8-10.8)
[2017-12-05] MEDS ORDERED: Iohexol 240 (50 ml) PO ONE (08:00)
[2017-12-05] MEDS: (Novolin R) Insulin Human Regular 100 units/ml vial SC SCH ×4 (08:06→21:55)
[2017-12-05 08:10] LABS: ALBUMIN 3.3 g/dL (3.5-5.0); ALT/SGPT 33 U/L (9-52); AST/SGOT 31 U/L (14-36); BLOOD UREA NITROGEN 16 mg/dL (7-17); GFR AFRICAN-AMERICAN > 60; GFR NON-AFRICAN AMERICAN 53
[2017-12-05] MEDS: Pantoprazole 40 mg EC Tab PO SCH (09:33)
[2017-12-05] MEDS: Multiple Vitamins Tab PO SCH (09:34)
[2017-12-05] MEDS: Cilostazol 50 mg Tab UD PO SCH ×2 (09:38→19:35)
--- NOTE | 2017-12-05 13:13 | CP.PCM.PN ---
Subjective - Date & Time of Evaluation Date of Evaluation: 12/05/17 Time of Evaluation: 13:12 - Subjective Subjective: CHIEF COMPLAINTS TODAY : GEN WEAKNESS UNABLE TO STAND ROS. HEENT : N. Resp : No cough, wheezing ,pleuritic CP ,or hemoptysis Cardio : No anginal CP, PND, orthopnea, palpitation GI : No abd.pain, n/v ,diarrhea or GI bleeding . 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 Musculoskel : No joint swelling , Derm : No rash Psych : Normal affect. Ext : No swelling ,calf pain PE. Pt. is alert awake in no distress. V.S As noted in the chart Head ,ear nose,throat and eyes : Normal. Neck : Supple with normal carotids. Lungs: Clear air entry. Heart : S1 & S2 normal with S4. No murmur. Abd : Soft non tender with normal bowel sounds. Neuro : Moves all ext. with no localized deficit. Ext : No edema with intact pulses.Non tender calves Derm : No rashes or decubitus ulcer. LABS/RADIOLOGY: ASSESSMENT/PLAN : ID EVAL FOR TB [facility]ANCHES[facility] Objective - Vital Signs/Intake and Output Vital Signs (last 24 hours): Temp Pulse Resp BP Pulse Ox 97.8 F 82 18 120/63 97 12/05/17 07:35 12/05/17 09:36 12/05/17 07:35 12/05/17 09:36 12/05/17 07:35 - Medications Medications: Current Medications Aspirin (Aspirin Chewable) 81 mg PO DAILY [facility] Last Admin: 12/05/17 09:34 Dose: 81 mg Cilostazol (Pletal) 50 mg PO BID [facility] Last Admin: 12/05/17 09:38 Dose: 50 mg Ferrous Sulfate (Feosol) 325 mg PO DAILY [facility] Last Admin: 12/05/17 09:34 Dose: 325 mg Gabapentin (Neurontin) 300 mg PO DAILY [facility] Last Admin: 12/05/17 09:34 Dose: 300 mg Heparin Sodium (Porcine) (Heparin) 5,000 units SC Q12 [facility] Last Admin: 12/05/17 09:40 Dose: 5,000 units Home Med (Azelastine Hcl [Azelastine Hcl]) 0.05 % OU BID [facility] Hydrochlorothiazide (Hydrodiuril) 25 mg PO DAILY [facility] Last Admin: 02/07/18 09:35 Dose: 25 mg Insulin Human Regular (Novolin R) 0 unit SC ACHS [facility] PRN Reason: Protocol Last Admin: 12/05/17 12:14 Dose: Not Given Losartan Potassium (Cozaar) 100 mg PO DAILY [facility] Last Admin: 12/05/17 09:35 Dose: 100 mg Metformin HCl (Glucophage) 1,000 mg PO BIDCC [facility] Last Admin: 12/05/17 08:34 Dose: 1,000 mg Metoprolol Tartrate (Lopressor) 50 mg PO BID [facility] Last Admin: 12/05/17 09:35 Dose: 50 mg Multivitamins (Hexavitamin) 1 tab PO DAILY [facility] Last Admin: 12/05/17 09:34 Dose: 1 tab Pantoprazole Sodium (Protonix Ec Tab) 40 mg PO DAILY [facility] Last Admin: 12/05/17 09:33 Dose: 40 mg Rosuvastatin Calcium (Crestor) 5 mg PO HS [facility] Last Admin: 12/04/17 21:41 Dose: 5 mg Sitagliptin Phosphate (Januvia) 100 mg PO DAILY [facility] Last Admin: 12/05/17 09:33 Dose: 100 mg - Labs Labs: 12/05/17 07:20 12/05/17 07:20 PT 13.5 SECONDS (9.7-12.2) H 12/04/17 11:35 INR 1.2 12/04/17 11:35 APTT 29 SECONDS (21-34) 12/04/17 11:35
--- NOTE | 2017-12-05 14:18 | CARD ---
APPROVED REPORT EKG Measurement Heart [id number] <Conclusion> Sinus rhythm with premature atrial complexes Left ventricular hypertrophy with repolarization abnormality Abnormal ECG
--- NOTE | 2017-12-05 14:58 | CT ---
PROCEDURE: CT Abdomen and Pelvis without intravenous contrast HISTORY: ABDOMINAL PAIN R/O MASS VS COLITIS COMPARISON: 02/24/2016 TECHNIQUE: Without contrast.. Contrast Dose: 0 Radiation dose: Total exam DLP = 719.36 mGy-cm. This CT exam was performed using one or more of the following dose reduction techniques: Automated exposure control, adjustment of the mA and/or kV according to patient size, and/or use of iterative reconstruction technique. FINDINGS: LOWER THORAX: Cardiomegaly. Chronic interstitial fibrotic changes at both lung bases. Mitral annular calcification. LIVER: Unremarkable. No gross lesion or ductal dilatation. GALLBLADDER AND BILE DUCTS: Unremarkable. PANCREAS: Unremarkable. No gross lesion or ductal dilatation. SPLEEN: Unremarkable. ADRENALS: Unremarkable. No mass. KIDNEYS AND URETERS: 1.6 cm left upper pole renal cortical cyst, unchanged. This measures 4 Hounsfield units. No other renal mass. No renal calculus or hydronephrosis. VASCULATURE: Unremarkable. No aortic aneurysm. BOWEL: Unremarkable. No obstruction. No gross mural thickening. APPENDIX: Unremarkable. Normal appendix. PERITONEUM: Unremarkable. No free fluid. No free air. LYMPH NODES: Unremarkable. No enlarged lymph nodes. BLADDER: Unremarkable. REPRODUCTIVE: Unremarkable uterus BONES: No acute fracture. Grade 1 anterolisthesis at L4-5 likely degenerative in origin. OTHER FINDINGS: None. IMPRESSION: No acute abnormality. Minor findings as above
[2017-12-05 16:55] VITALS: RESP 20
[2017-12-05 21:28] LABS: C DIFF TOXIN A B NEGATIVE (NEGATIVE)
[2017-12-05 22:15] LABS: FECAL LEUKOCYTES NEGATIVE (NEGATIVE)
--- NOTE | 2017-12-05 22:59 | CP.PCM.PN ---
Subjective - Date & Time of Evaluation Date of Evaluation: 12/05/17 Time of Evaluation: 22:59 - Subjective Subjective: CHIEF COMPLAINTS TODAY : afebrile, c/o generalized abdominal pain and bloating. diarrhea positive UNABLE TO STAND ROS. HEENT : N. Resp : No cough, wheezing ,pleuritic CP ,or hemoptysis Cardio : No anginal CP, PND, orthopnea, palpitation GI : +ve ABD. PAIN, NO n/v , +VE diarrhea. NO GI bleeding . 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 Musculoskel : No joint swelling , Derm : No rash Psych : Normal affect. Ext : No swelling ,calf pain PE. Pt. is alert awake in no distress. V.S As noted in the chart Head ,ear nose,throat and eyes : Normal. Neck : Supple with normal carotids. Lungs: Clear air entry. Heart : S1 & S2 normal with S4. No murmur. Abd : Soft SLIGHTLY DISTENDED. gENERALIZED TENDERNESS ESPECIALLY EPIGASTRIC AND MID ABDOMEN. bOWEL SOUNDS PRESENT. Neuro : Moves all ext. with no localized deficit. Ext : No edema with intact pulses.Non tender calves Derm : No rashes or decubitus ulcer. LABS/RADIOLOGY: CT ABD W PO CONTRAST 12/05/17 -VE Objective - Vital Signs/Intake and Output Vital Signs (last 24 hours): Temp Pulse Resp BP Pulse Ox 97.5 F L 78 20 106/57 L 95 12/05/17 16:54 12/05/17 16:54 12/05/17 16:54 12/05/17 16:54 12/05/17 16:54 - Medications Medications: Current Medications Aspirin (Aspirin Chewable) 81 mg PO DAILY [facility] Last Admin: 12/05/17 09:34 Dose: 81 mg Cilostazol (Pletal) 50 mg PO BID [facility] Last Admin: 12/05/17 19:35 Dose: 50 mg Ferrous Sulfate (Feosol) 325 mg PO DAILY [facility] Last Admin: 12/05/17 09:34 Dose: 325 mg Gabapentin (Neurontin) 300 mg PO DAILY [facility] Last Admin: 12/05/17 09:34 Dose: 300 mg Heparin Sodium (Porcine) (Heparin) 5,000 units SC Q12 [facility] Last Admin: 12/05/17 21:17 Dose: 5,000 units Home Med (Azelastine Hcl [Azelastine Hcl]) 0.05 % OU BID [facility] Hydrochlorothiazide (Hydrodiuril) 25 mg PO DAILY [facility] Last Admin: 12/05/17 09:35 Dose: 25 mg Insulin Human Regular (Novolin R) 0 unit SC ACHS [facility] PRN Reason: Protocol Last Admin: 12/05/17 21:55 Dose: Not Given Losartan Potassium (Cozaar) 100 mg PO DAILY [facility] Last Admin: 12/05/17 09:35 Dose: 100 mg [facility] Last Admin: 12/05/17 17:40 Dose: 1,000 mg Metoprolol Tartrate (Lopressor) 50 mg PO BID [facility] Last Admin: 12/05/17 19:34 Dose: 50 mg Multivitamins (Hexavitamin) 1 tab PO DAILY [facility] Last Admin: 12/05/17 09:34 Dose: 1 tab Pantoprazole Sodium (Protonix Ec Tab) 40 mg PO DAILY [facility] Last Admin: 12/05/17 09:33 Dose: 40 mg Rosuvastatin Calcium (Crestor) 5 mg PO HS [facility] Last Admin: 12/05/17 21:18 Dose: 5 mg Sitagliptin Phosphate (Januvia) 100 mg PO DAILY [facility] Last Admin: 12/05/17 09:33 Dose: 100 mg - Labs Labs: 12/05/17 07:20 12/05/17 07:20 PT 13.5 SECONDS (9.7-12.2) H 12/04/17 11:35 INR 1.2 12/04/17 11:35 APTT 29 SECONDS (21-34) 12/04/17 11:35 Assessment and Plan (1) Syncope Status: Acute (2) Interstitial lung disease Status: Acute (3) Congestive heart failure Status: Acute (4) Dizziness Status: Acute (5) History of fall Status: Acute - Assessment and Plan (Free Text) Plan: W/U FOR TB IS NEGATIVE, WITH NEGATIVE qUANTIferon gOLD tb TEST. SPUTUM NEGATIVE SMEARS FOR afb 3 -PENDING CULTURES CT OF THE CHEST 12/04/17 REVIEWED CONSISTENT WITH PROBABLY CHRONIC NONSPECIFIC MOSAIC PATTERN OF LUNG PARENCHYMA/AND INTERSTITIAL LUNG DISEASE . PATIENT PRESENTLY COMPLAINING OF ABDOMINAL PAINS,AND BLOATING. PATIENT ALREADY STARTED ON pROTONIX. STOOLS FOR C. DIFFICILE RECENT HISTORY OF ANTIBIOTIC THERAPY. CT OF THE ABDOMEN AND PELVIS WITH BY MOUTH CONTRAST NOTED-NO ACUTE PATHOLOGY. cONSIDER gi WORKUP FOR GENERALIZED WEAKNESS, FATIGUE AND POSSIBLE COLITIS
[2017-12-06] MEDS: (Novolin R) Insulin Human Regular 100 units/ml vial SC SCH ×4 (07:54→22:01)
[2017-12-06 08:39] LABS: ALBUMIN 3.8 g/dL (3.5-5.0); ALT/SGPT 42 U/L (9-52); AST/SGOT 32 U/L (14-36); BLOOD UREA NITROGEN 10 mg/dL (7-17); CALCIUM 9.3 mg/dl (8.6-10.4); GFR AFRICAN-AMERICAN > 60; GFR NON-AFRICAN AMERICAN > 60
[2017-12-06 10:05] LABS: BASO # 0.1 K/uL (0.0-0.2); BASO % 0.8 % (0.0-2.0); EOS # 0.2 K/uL (0.0-0.7); EOS % 2.2 % (0.0-4.0); HEMOGLOBIN 12.4 g/dL (11.0-16.0); LYMPH # 1.9 K/uL (1.0-4.3); LYMPH % 27.2 % (20.0-40.0); MEAN CELL VOLUME 89.6 fL (81.0-99.0); MEAN CORPUSCULAR HEMOGLOBIN 31.5 pg (27.0-31.0); MEAN CORPUSCULAR HGB CONC 35.2 g/dL (33.0-37.0); MEAN PLATELET VOLUME 10.5 fL (7.2-11.7); MONO # 0.8 K/uL (0.0-0.8); MONO % 12.1 % (0.0-10.0); NEUT # 3.9 K/uL (1.8-7.0); NEUT % 57.7 % (50.0-75.0); NRBC % 0.2 % (0.0-2.0); RBC 3.92 Mil/uL (3.80-5.20); RED CELL DISTRIBUTION WIDTH 14.5 % (11.5-14.5); WHITE BLOOD COUNT 6.8 K/uL (4.8-10.8)
[2017-12-06] MEDS: Pantoprazole 40 mg EC Tab PO SCH (10:41)
[2017-12-06] MEDS: Multiple Vitamins Tab PO SCH (10:41)
[2017-12-06] MEDS: Cilostazol 50 mg Tab UD PO SCH ×2 (10:41→18:16)
--- NOTE | 2017-12-06 13:31 | CP.PCM.PN ---
Subjective - Date & Time of Evaluation Date of Evaluation: 12/06/17 Time of Evaluation: 13:30 - Subjective Subjective: CHIEF COMPLAINTS TODAY : GEN WEAKNESS UNABLE TO STAND ROS. HEENT : N. Resp : No cough, wheezing ,pleuritic CP ,or hemoptysis Cardio : No anginal CP, PND, orthopnea, palpitation GI : No abd.pain, n/v ,diarrhea or GI bleeding . 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 Musculoskel : No joint swelling , Derm : No rash Psych : Normal affect. Ext : No swelling ,calf pain PE. Pt. is alert awake in no distress. V.S As noted in the chart Head ,ear nose,throat and eyes : Normal. Neck : Supple with normal carotids. Lungs: Clear air entry. Heart : S1 & S2 normal with S4. No murmur. Abd : Soft non tender with normal bowel sounds. Neuro : Moves all ext. with no localized deficit. Ext : No edema with intact pulses.Non tender calves Derm : No rashes or decubitus ulcer. LABS/RADIOLOGY: ASSESSMENT/PLAN : PT FRANCHESCA Objective - Vital Signs/Intake and Output Vital Signs (last 24 hours): Temp Pulse Resp BP Pulse Ox 97.7 F 81 20 119/72 98 12/06/17 08:00 12/06/17 10:40 12/06/17 08:00 12/06/17 10:40 12/06/17 08:00 Intake and Output: 12/06/17 12/06/17 11:59 23:59 Intake Total 0 Balance 0 - Medications Medications: Current Medications Aspirin (Aspirin Chewable) 81 mg PO DAILY [facility] Last Admin: 12/06/17 10:41 Dose: 81 mg Cilostazol (Pletal) 50 mg PO BID [facility] Last Admin: 12/06/17 10:41 Dose: 50 mg Ferrous Sulfate (Feosol) 325 mg PO DAILY [facility] Last Admin: 12/06/17 10:41 Dose: 325 mg Gabapentin (Neurontin) 300 mg PO DAILY [facility] Last Admin: 12/06/17 10:41 Dose: 300 mg Heparin Sodium (Porcine) (Heparin) 5,000 units SC Q12 [facility] Last Admin: 12/06/17 10:46 Dose: 5,000 units Home Med (Azelastine Hcl [Azelastine Hcl]) 0.05 % OU BID [facility] Hydrochlorothiazide (Hydrodiuril) 25 mg PO DAILY [facility] Last Admin: 12/06/17 10:41 Dose: 25 mg Insulin Human Regular (Novolin R) 0 unit SC [facility] PRN Reason: Protocol Last Admin: 12/06/17 11:45 Dose: 2 unit Losartan Potassium (Cozaar) 100 mg PO DAILY [facility] Last Admin: 12/06/17 10:41 Dose: 100 mg Metformin HCl (Glucophage) 1,000 mg PO BIDCC [facility] Last Admin: 12/06/17 08:48 Dose: 1,000 mg Metoprolol Tartrate (Lopressor) 50 mg PO BID [facility] Last Admin: 12/06/17 10:41 Dose: 50 mg Multivitamins (Hexavitamin) 1 tab PO DAILY [facility] Last Admin: 12/06/17 10:41 Dose: 1 tab Pantoprazole Sodium (Protonix Ec Tab) 40 mg PO DAILY [facility] Last Admin: 12/06/17 10:41 Dose: 40 mg Rosuvastatin Calcium (Crestor) 5 mg PO HS [facility] Last Admin: 12/05/17 21:18 Dose: 5 mg Sitagliptin Phosphate (Januvia) 100 mg PO DAILY [facility] Last Admin: 12/06/17 10:41 Dose: 100 mg - Labs Labs: 12/06/17 09:50 12/06/17 08:09 PT 13.5 SECONDS (9.7-12.2) H 12/04/17 11:35 INR 1.2 12/04/17 11:35 APTT 29 SECONDS (21-34) 12/04/17 11:35
--- NOTE | 2017-12-06 22:28 | CP.PCM.PN ---
Subjective - Date & Time of Evaluation Date of Evaluation: 12/06/17 Time of Evaluation: 22:28 - Subjective Subjective: CHIEF COMPLAINTS TODAY : afebrile, FEELING BETTER, DIARRHEA probably secondary to contrast feels weak though ROS. HEENT : N. Resp : No cough, wheezing ,pleuritic CP ,or hemoptysis Cardio : No anginal CP, PND, orthopnea, palpitation GI : +ve ABD. PAIN, NO n/v , +VE diarrhea. NO GI bleeding . 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 Musculoskel : No joint swelling , Derm : No rash Psych : Normal affect. Ext : No swelling ,calf pain PE. Pt. is alert awake in no distress. V.S As noted in the chart Head ,ear nose,throat and eyes : Normal. Neck : Supple with normal carotids. Lungs: Clear air entry. Heart : S1 & S2 normal with S4. No murmur. Abd : Soft LESS DISTENDED. bOWEL SOUNDS PRESENT. Neuro : Moves all ext. with no localized deficit. Ext : No edema with intact pulses.Non tender calves Derm : No rashes or decubitus ulcer. LABS/RADIOLOGY: STOOLS c. DIFFICILE NEGATIVE. STOOL NEGATIVE FOR OCCULT BLOOD, NEGATIVE FOR LEUKOCYTES. CT ABD W PO CONTRAST 12/05/17 -VE Objective - Vital Signs/Intake and Output Vital Signs (last 24 hours): Temp Pulse Resp BP Pulse Ox 97.2 F L 84 20 118/58 L 97 12/06/17 16:11 12/06/17 16:11 12/06/17 16:11 12/06/17 16:11 12/06/17 16:11 Intake and Output: 12/06/17 12/07/17 18:59 06:59 Intake Total 240 Balance 240 - Medications Medications: Current Medications Aspirin (Aspirin Chewable) 81 mg PO DAILY [facility] Last Admin: 12/06/17 10:41 Dose: 81 mg Cilostazol (Pletal) 50 mg PO BID [facility] Last Admin: 12/06/17 18:16 Dose: 50 mg Ferrous Sulfate (Feosol) 325 mg PO DAILY [facility] Last Admin: 12/06/17 10:41 Dose: 325 mg Gabapentin (Neurontin) 300 mg PO DAILY [facility] Last Admin: 12/06/17 10:41 Dose: 300 mg Heparin Sodium (Porcine) (Heparin) 5,000 units SC Q12 [facility] Last Admin: 12/06/17 21:35 Dose: 5,000 units Hydrochlorothiazide (Hydrodiuril) 25 mg PO DAILY [facility] Last Admin: 12/06/17 10:41 Dose: 25 mg Insulin Human Regular (Novolin R) 0 unit SC ACHS [facility] PRN Reason: Protocol Last Admin: 12/06/17 22:01 Dose: Not Given Losartan Potassium (Cozaar) 100 mg PO DAILY [facility] Last Admin: 12/06/17 10:41 Dose: 100 mg Metformin HCl (Glucophage) 1,000 mg PO BIDCC [facility] Last Admin: 12/06/17 18:00 Dose: 1,000 mg Metoprolol Tartrate (Lopressor) 50 mg PO BID [facility] Last Admin: 12/06/17 18:15 Dose: 50 mg Multivitamins (Hexavitamin) 1 tab PO DAILY [facility] Last Admin: 12/06/17 10:41 Dose: 1 tab Naphazoline HCl/Pheniramine Maleate (Naphcon-A Opht) 0 ml OU BID [facility] Pantoprazole Sodium (Protonix Ec Tab) 40 mg PO DAILY [facility] Last Admin: 12/06/17 10:41 Dose: 40 mg Rosuvastatin Calcium (Crestor) 5 mg PO HS [facility] Last Admin: 12/06/17 21:35 Dose: 5 mg Sitagliptin Phosphate (Januvia) 100 mg PO DAILY [facility] Last Admin: 12/06/17 10:41 Dose: 100 mg - Labs Labs: 12/06/17 09:50 12/06/17 08:09 PT 13.5 SECONDS (9.7-12.2) H 12/04/17 11:35 INR 1.2 12/04/17 11:35 APTT 29 SECONDS (21-34) 12/04/17 11:35 Assessment and Plan (1) Syncope Status: Acute (2) Interstitial lung disease Status: Acute (3) Congestive heart failure Status: Acute (4) Dizziness Status: Acute (5) History of fall Status: Acute - Assessment and Plan (Free Text) Assessment: IMPROVING. pATIENT AWAITING DISCHARGE TO REHABILITATION PT PER FAMILY.
[2017-12-07] MEDS: (Novolin R) Insulin Human Regular 100 units/ml vial SC SCH ×2 (07:17→12:20)
[2017-12-07 07:32] LABS: BASO # 0.1 K/uL (0.0-0.2); BASO % 0.6 % (0.0-2.0); EOS # 0.2 K/uL (0.0-0.7); EOS % 2.5 % (0.0-4.0); HEMOGLOBIN 11.9 g/dL (11.0-16.0); LYMPH # 2.7 K/uL (1.0-4.3); LYMPH % 29.9 % (20.0-40.0); MEAN CELL VOLUME 88.8 fL (81.0-99.0); MEAN PLATELET VOLUME 10.1 fL (7.2-11.7); MONO % 10.5 % (0.0-10.0); NEUT # 5.2 K/uL (1.8-7.0); NEUT % 56.5 % (50.0-75.0); RBC 3.82 Mil/uL (3.80-5.20); RED CELL DISTRIBUTION WIDTH 14.4 % (11.5-14.5); WHITE BLOOD COUNT 9.2 K/uL (4.8-10.8)
[2017-12-07 07:47] LABS: ALBUMIN 3.5 g/dL (3.5-5.0); CALCIUM 9.1 mg/dl (8.6-10.4)
[2017-12-07 07:57] VITALS: BP 132/76; TEMP 98.1; O2SAT 98
[2017-12-07] MEDS ORDERED: Naphazoline-Pheniramine Ophth Soln OU SCH (10:00)
[2017-12-07] MEDS: Pantoprazole 40 mg EC Tab PO SCH (10:16)
[2017-12-07] MEDS: Multiple Vitamins Tab PO SCH (10:16)
[2017-12-07] MEDS: Cilostazol 50 mg Tab UD PO SCH (10:22)
--- NOTE | 2017-12-07 10:58 | CP.PCM.PN ---
Subjective - Date & Time of Evaluation Date of Evaluation: 12/07/17 Time of Evaluation: 10:57 - Subjective Subjective: PATIENT WAS ADMITTING FOR SYNCOPE AND RENAL INSUFFICIENCY; FAMILY AT THE BEDSIDE ; AAOX3 DENIES CHEST PAIN, SOB AND NO SIGN OF DISTRESS NOTED Objective - Vital Signs/Intake and Output Vital Signs (last 24 hours): Temp Pulse Resp BP Pulse Ox 98.1 F 80 20 132/76 98 12/07/17 07:00 12/07/17 07:00 12/07/17 07:00 12/07/17 07:00 12/07/17 07:00 Intake and Output: 12/07/17 12/07/17 06:59 18:59 Intake Total 480 Balance 480 - Medications Medications: Current Medications Aspirin (Aspirin Chewable) 81 mg PO DAILY [facility] Last Admin: 12/07/17 10:16 Dose: 81 mg Cilostazol (Pletal) 50 mg PO BID [facility] Last Admin: 12/07/17 10:22 Dose: 50 mg Ferrous Sulfate (Feosol) 325 mg PO DAILY [facility] Last Admin: 12/07/17 10:17 Dose: 325 mg Gabapentin (Neurontin) 300 mg PO DAILY [facility] Last Admin: 12/07/17 10:16 Dose: 300 mg Heparin Sodium (Porcine) (Heparin) 5,000 units SC Q12 [facility] Last Admin: 12/07/17 10:17 Dose: 5,000 units Hydrochlorothiazide (Hydrodiuril) 25 mg PO DAILY [facility] Last Admin: 12/07/17 10:16 Dose: 25 mg Insulin Human Regular (Novolin R) 0 unit SC [facility] PRN Reason: Protocol Last Admin: 12/07/17 07:17 Dose: Not Given Losartan Potassium (Cozaar) 100 mg PO DAILY [facility] Last Admin: 12/07/17 10:17 Dose: 100 mg Metformin [facility] (Gl[facility]ophage) [facility] Last Admin: 12/07/17 08:08 Dose: 1,000 mg Metoprolol Tartrate (Lopressor) 50 mg PO BID [facility] Last Admin: 12/07/17 10:17 Dose: 50 mg Multivitamins (Hexavitamin) 1 tab PO DAILY [facility] Last Admin: 12/07/17 10:16 Dose: 1 tab Naphazoline HCl/Pheniramine Maleate (Naphcon-A Opht) 0 ml OU BID [facility] Last Admin: 12/07/17 10:47 Dose: 1 drop Pantoprazole Sodium (Protonix Ec Tab) 40 mg PO DAILY [facility] Last Admin: 12/07/17 10:16 Dose: 40 mg Rosuvastatin Calcium (Crestor) 5 mg PO HS [facility] Last Admin: 12/06/17 21:35 Dose: 5 mg Sitagliptin Phosphate (Januvia) 100 mg PO DAILY [facility] Last Admin: 12/07/17 10:16 Dose: 100 mg - Labs Labs: 12/07/17 07:14 12/07/17 07:14 PT 13.5 SECONDS (9.7-12.2) H 12/04/17 11:35 INR 1.2 12/04/17 11:35 APTT 29 SECONDS (21-34) 12/04/17 11:35 Assessment and Plan - Assessment and Plan (Free Text) Assessment: PATIENT SEEN AND EXAMINED AT THE BEDSIDE LUNG SOUND CLEAR QUESTIONABLE CT OF THE CHEST PRIOR ADMISSION TB W/U WAS DONE AND IT WAS NEG ABD CT TO R/O MASS AND COLITIS WAS NEG STOOL CDIFF WAS NEG HEAD CT WAS NEG FOR BLEEDING PATIENT HAVING FORM STOOL DISCUSS WITH DR JOHNSON AND DR CHEEK BOTH AGREE ADMITTING PATIENT UNDER THE FACILITY DOCTOR OR PMD AT [facility] FOLLOW UP WITH DR JOHNSON 1-2 WEEKS AT HIS OFFICE ---CALL FOR APPOINTMENT FOLLOW UP WITH DR CHEEK 1-2 WEEKS ----CALL FOR APPOINTMENT CONTINUE ALL YOUR HOME MEDICATION NO NEW PRESCRIPTION ACTIVITY ORDER PER ADMITTING DOCTOR AND FACILITY PROTOCOL FOR FURTHER ORDER THE ADMITTING DOCTOR DISCUSS WITH THE PATIENT AND FAMILY WHO AGREE AND VERBALIZED UNDERSTANDING
[2017-12-07 11:37] VITALS: PULSE 84
--- NOTE | 2017-12-07 13:36 | CP.PCM.DIS ---
Provider - Provider Date of Admission: 12/04/17 01:42 Attending physician: Fouzia Quiroz MD Time Spent in preparation of Discharge (in minutes): 30 Hospital Course - Lab Results Lab Results: Most Recent Lab Values WBC 9.2 K/uL (4.8-10.8) 12/07/17 07:14 RBC 3.82 Mil/uL (3.80-5.20) 12/07/17 07:14 Hgb 11.9 g/dL (11.0-16.0) 12/07/17 07:14 Hct 33.9 % (34.0-47.0) L 12/07/17 07:14 MCV 88.8 fL (81.0-99.0) 12/07/17 07:14 MCH 31.0 pg (27.0-31.0) 12/07/17 07:14 MCHC 35.0 g/dL (33.0-37.0) 12/07/17 07:14 RDW 14.4 % (11.5-14.5) 12/07/17 07:14 Plt Count 172 K/uL (130-400) 12/07/17 07:14 MPV 10.1 fL (7.2-11.7) 12/07/17 07:14 Neut % (Auto) 56.5 % (50.0-75.0) 12/07/17 07:14 Lymph % (Auto) 29.9 % (20.0-40.0) 12/07/17 07:14 [place] % (Auto) 10.5 % (0.0-10.0) H 12/07/17 07:14 Eos % (Auto) 2.5 % (0.0-4.0) 12/07/17 07:14 Baso % (Auto) 0.6 % (0.0-2.0) 12/07/17 07:14 Neut # (Auto) 5.2 K/uL (1.8-7.0) 12/07/17 07:14 Lymph # (Auto) 2.7 K/uL (1.0-4.3) 12/07/17 07:14 [place] # (Auto) 1.0 K/uL (0.0-0.8) H 12/07/17 07:14 Eos # (Auto) 0.2 K/uL (0.0-0.7) 12/07/17 07:14 Baso # (Auto) 0.1 K/uL (0.0-0.2) 12/07/17 07:14 PT 13.5 SECONDS (9.7-12.2) H 12/04/17 11:35 INR 1.2 12/04/17 11:35 APTT 29 SECONDS (21-34) 12/04/17 11:35 Puncture Site Rr 12/04/17 02:02 pCO2 27 mm/Hg (35-45) L 12/04/17 02:02 pO2 74 mm/Hg (80-100) L 12/04/17 02:02 HCO3 20.0 mmol/L (21-28) L 12/04/17 02:02 ABG pH 7.41 (7.35-7.45) 12/04/17 02:02 ABG Total CO2 17.9 mmol/L (22-28) L 12/04/17 02:02 ABG O2 Saturation 97.9 % (95-98) 12/04/17 02:02 ABG Base Excess -6.3 mmol/L (-2.0-3.0) L 12/04/17 02:02 ABG Hemoglobin 11.3 g/dL (11.7-17.4) L 12/04/17 02:02 ABG Carboxyhemoglobin 1.9 % (0.5-1.5) H 12/04/17 02:02 POC ABG HHb (Measured) 2.0 % (0.0-5.0) 12/04/17 02:02 ABG Methemoglobin 1.3 % (0.0-3.0) 12/04/17 02:02 Neftali Test Pos 12/04/17 02:02 A-a O2 Difference 42.0 mm/Hg 12/04/17 02:02 Respiratory Index 0.6 12/04/17 02:02 Hgb O2 Saturation 94.8 % (95.0-98.0) L 12/04/17 02:02 FiO2 21.0 % 12/04/17 02:02 Sodium 135 mmol/L (132-148) 12/07/17 07:14 Potassium 4.3 mmol/L (3.6-5.2) 12/07/17 07:14 Chloride 108 mmol/L (98-107) H 12/07/17 07:14 Carbon Dioxide 18 mmol/L (22-30) L 12/07/17 07:14 Anion Gap 14 (10-20) 12/07/17 07:14 BUN 16 mg/dL (7-17) 12/07/17 07:14 Creatinine 1.4 mg/dL (0.7-1.2) H 12/07/17 07:14 Est GFR ( Amer) 44 12/07/17 07:14 Est GFR (Non-Af Amer) 36 12/07/17 07:14 POC Glucose (mg/dL) 166 mg/dL (65-110) H 12/07/17 11:39 Random Glucose 109 mg/dL (65-105) H 12/07/17 07:14 Calcium 9.1 mg/dl (8.6-10.4) 12/07/17 07:14 Total Bilirubin 0.5 mg/dL (0.2-1.3) 12/07/17 07:14 AST 37 U/L (14-36) H 12/07/17 07:14 ALT 40 U/L (9-52) 12/07/17 07:14 Alkaline Phosphatase 52 U/L (38-126) 12/07/17 07:14 Total Creatine Kinase 116 U/L (30-135) 12/04/17 11:35 CK-MB (Mass) 1.76 ng/mL (0.0-3.38) 12/04/17 11:35 Troponin I 0.0420 ng/mL (0.00-0.120) 12/04/17 11:35 Total Protein 7.0 g/dL (6.3-8.3) 12/07/17 07:14 Albumin 3.5 g/dL (3.5-5.0) 12/07/17 07:14 Globulin 3.5 gm/dL (2.2-3.9) 12/07/17 07:14 Albumin/Globulin Ratio 1.0 (1.0-2.1) 12/07/17 07:14 Stool Occult Blood Negative (NEGATIVE) 12/05/17 20:24 Stool Leukocytes, Qual Negative (NEGATIVE) 12/04/17 20:35 C. difficile Ag & Toxin Negative (NEGATIVE) 12/04/17 20:35 - Hospital Course Hospital Course: ADMITTED FOR DIZZINESS AND FREQUENT FALLING HAD SIMILAR COMPLAINTS LAST MONTH AND WAS HOSPITALIZED IN . DURING THE LAST VISIT , PT HAD [facility] APICAL INFILTRATE AND PRELIMINARY W/U FOR TB WAS NEG PT WENT HOME ON [place] FAMILY BROUGHT THE PT BACK TO HOSPITAL WITH WEAKNESS AND DIZZINESS AND FALLS PT LAST ADMISSION DECLINED SHORT TERM REHAB LIVES ALONE ID CLEARED THE PT FROM INF. POINT OF VIEW THERE WERE NO OTHER ACUTE PROBLEMS PT WAS D/C TO FAMILY'S CHOICE OF REHAB Discharge Exam - Head Exam Head Exam: NORMAL INSPECTION Discharge Plan - Follow Up Plan Condition: STABLE Disposition: HOME/ ROUTINE Instructions: Heart Failure (DC), Syncope (DC), Impaired Kidney Function (DC), Chronic Lung Disease and Infection Prevention (DC) Additional Instructions: ADMITTING PATIENT UNDER THE FACILITY DOCTOR OR PMD AT [facility] FOLLOW UP WITH DR QUIROZ 1-2 WEEKS AT HIS OFFICE ---CALL FOR APPOINTMENT FOLLOW UP WITH DR GREEN 1-2 WEEKS ----CALL FOR APPOINTMENT CONTINUE ALL YOUR HOME MEDICATION NO NEW PRESCRIPTION ACTIVITY ORDER PER ADMITTING DOCTOR AND FACILITY PROTOCOL FOR FURTHER ORDER THE ADMITTING DOCTOR Referrals: Lara Green MD [Staff Provider] - Fouzia Quiroz MD [Staff Provider] -
== END 2017-12-07 14:45 | DRG 194 ==
LOC: C.ER 21:31 → C.9E 12-04 01:42 → C.5S 12-04 12:57
PROVIDERS: ADMIT Internal Medicine Cardiovascular Disease; ATTEND Internal Medicine Cardiovascular Disease
DX: J18.9 Pneumonia, unspecified organism (principal); J84.9 Interstitial pulmonary disease, unspecified; I11.0 Hypertensive heart disease with heart failure; E11.9 Type 2 diabetes mellitus without complications; I50.9 Heart failure, unspecified; J44.9 Chronic obstructive pulmonary disease, unspecified; R55 Syncope and collapse; E03.9 Hypothyroidism, unspecified; I25.10 Atherosclerotic heart disease of native coronary artery without angina pectoris; N28.9 Disorder of kidney and ureter, unspecified; Z87.01 Personal history of pneumonia (recurrent)

== ENCOUNTER 2018-06-14 15:52 | Inpatient (IN) | payer MEDICARE, OTHER ==
[2018-06-14 15:54] VITALS: BMI 24.8
--- NOTE | 2018-06-14 15:57 | C.PDOC ---
History Of Present Illness 82 year old female brought to ED via EMS for evaluation of left hemiparesis, and facial droop for the past 17 hours. Pt states her left arm weakness started at 11PM last night, which is the last time known well. Patient's son called her home this morning, but call was not answered. Homemaker arrived this afternoon, who found patient still in bed with current symptoms. She denies pain, fever, chest pain, shortness of breath, nausea, vomiting, or trauma. As per EMS, pt was found to be in rapid Afib with heart rate in the 180s. Cardizem was administered. Code stroke was activated upon arrival to ED. Time Seen by Provider: 06/14/18 15:56 History Per: Patient, EMS History/Exam Limitations: no limitations Past Medical History Reviewed: Historical Data, Nursing Documentation, Vital Signs Vital Signs: Last Vital Signs Temp Pulse 123 H 06/14/18 18:01 Resp 23 06/14/18 18:01 BP 145/80 06/14/18 18:01 Pulse Ox 97 06/14/18 18:01 - Medical History PMH: Arthritis, Asthma, Bronchitis, CAD, CHF, COPD, Diabetes, HTN, Hypercholesterolemia, Hypothyroidism, Osteoporosis, Peripheral Edema Denies: Atrial Fibrillation, Mitral Valve Prolapse, Chronic Kidney Disease Surgical History: Denies: Pacemaker - [facility] Procedures ASSISTANCE WITH RESPIRATORY VENTILATION, <24 HRS, CPAP (02/24/16) INSERTION OF ENDOTRACHEAL AIRWAY INTO TRACHEA, VIA OPENING (02/24/16) RESPIRATORY VENTILATION, GREATER THAN 96 CONSECUTIVE HOURS (02/24/16) Family History: States: Unknown Family Hx - Social History Hx Tobacco Use: No Hx Alcohol Use: No Hx Substance Use: No - Immunization History Hx Tetanus Toxoid Vaccination: No Hx Influenza Vaccination: Yes Hx Pneumococcal Vaccination: No Review Of Systems Except As Marked, All Systems Reviewed And Found Negative. Constitutional: Negative for: Fever, Chills Cardiovascular: Negative for: Chest Pain Respiratory: Negative for: Shortness of Breath Neurological: Positive for: Other (left hemiparesis and facial droop) Physical Exam - Physical Exam Additional Physical Exam Comments: Constitutional: No acute distress. Head: Normocephalic. Atraumatic. Eyes: PERRL. Preferential right gaze palsy. ENT: Moist mucous membranes. Neck: Supple. Cardiovascular: Tachycardic. Radial pulse 2+ bilaterally. Chest: No tenderness. Respiratory: Clear to auscultation bilaterally. GI: Soft. Nontender. Nondistended. Back: No CVA tenderness. Musculoskeletal: No tenderness or swelling of extremities. Skin: No rash. Neurologic: Alert. Motor 4/5 left arm and leg. 5/5 right arm and leg. Left facial droop. Slurred speech. ED Course And Treatment - Laboratory Results Result Diagrams: 06/14/18 16:04 06/14/18 16:04 Critical Care Time - Critical Care Note Total Time (in mins): 45 Documented critical care: time excludes all time spent performing seperately billable procedures. NIHSS Stroke Scale - Date/Time Evaluation Performed Date Performed: 06/14/18 When Was NIHSS Performed: Baseline - How Severe is the Stroke Level of Consciousness: 0=Alert LOC to Questions: 0=Both comments correct LOC to commands: 0=Obeys both correctly Best Gaze: 1=Partial gaze palsy Visual: 0=No visual loss Facial: 2=Partial (lower face paralysis) Motor Arm - Left: 1=Drift noted before 10 sec Motor Arm - Right: 0=No drift Motor Leg - Left: 1=Drift before 5 sec Motor Leg - Right: 0=No drift Limb Ataxia: 0=Absent Sensory: 0=Normal Best Language: 0=No aphasia Dysarthia: 1=Mild to moderate slurring Extinction & Inattention (Neglect): 0=Normal, no object Score: 6 rTPA Inclusion/Exclusion - Refusal of Treatment Patient Refused Treatment: No - Inclusion Criteria for Altepase Patient is 18 years or Older: Yes The Clinical Diagnosis of Ischemic Stroke That is Causing a Potentially Disabling Neurological Deficit: Yes Time of Onset is Well Established to be Less Than 270 Minute Before Treatment Would Begin: No Risk/Benefit Discussed With Patient/Family Member Present: Yes Medical Decision Making Medical Decision Making: EKG: Atrial flutter with 100bpm. No ST elevation. PVCs. Head CT IMPRESSION: No evidence of acute intracranial hemorrhage. Re- demonstrated are moderate to fairly significant chronic white matter ischemic changes. Chronic bilateral basal nuclei and brainstem ischemic changes less well seen compared to prior high-resolution MRI. Note that the possibility of a small hyperacute infarct cannot be excluded on this exam. Clinical correlation recommended. . CXR no acute disease. Dr. Patton recommends Aspirin and Plavis and will review CT angio. Dr. Quiroz accepts patient to his service. Disposition - Disposition Disposition: HOSPITALIZED Disposition Time: 18:00 Condition: GUARDED - POA Core Measure Indicators: Code Stroke - Clinical Impression Clinical Impression: CVA (cerebral vascular accident), Facial palsy, Hemiparesis - Scribe Statement The provider has reviewed the documentation as recorded by the Scribe KP All medical record entries made by the Scribe were at my direction and personally dictated by me. I have reviewed the chart and agree that the record accurately reflects my personal performance of the history, physical exam, medical decision making, and the department course for this patient. I have also personally directed, reviewed, and agree with the discharge instructions and disposition.
[2018-06-14 16:08] LABS: BASO # 0.1 K/uL (0.0-0.2); BASO % 0.6 % (0.0-2.0); EOS % 0.4 % (0.0-4.0); HEMOGLOBIN 13.1 g/dL (11.0-16.0); LYMPH # 1.9 K/uL (1.0-4.3); LYMPH % 16.5 % (20.0-40.0); MEAN CELL VOLUME 89.2 fL (81.0-99.0); MEAN CORPUSCULAR HEMOGLOBIN 29.8 pg (27.0-31.0); MEAN CORPUSCULAR HGB CONC 33.5 g/dL (33.0-37.0); MONO % 8.6 % (0.0-10.0); NEUT # 8.3 K/uL (1.8-7.0); NEUT % 73.9 % (50.0-75.0); RBC 4.38 Mil/uL (3.80-5.20); RED CELL DISTRIBUTION WIDTH 12.7 % (11.5-14.5); WHITE BLOOD COUNT 11.3 K/uL (4.8-10.8)
[2018-06-14 16:16] LABS: INR 1.2; PROTHROMBIN TIME 12.9 SECONDS (9.7-12.2)
[2018-06-14 16:21] LABS: CALCIUM 9.8 mg/dl (8.6-10.4)
[2018-06-14 16:25] LABS: ALB/GLOB RATIO 1.1 (1.0-2.1); ALBUMIN 4.1 g/dL (3.5-5.0)
--- NOTE | 2018-06-14 16:25 | CT ---
Date of service: 06/14/2018 PROCEDURE: CT HEAD WITHOUT CONTRAST. HISTORY: Code Stroke COMPARISON: Comparison made with prior CT scan and MRI brain 12/03/2017 11/20/2017 respectively. . TECHNIQUE: Axial computed tomography images were obtained through the head/brain without intravenous contrast. Radiation dose: Total exam DLP = 828.03 mGy-cm. This CT exam was performed using one or more of the following dose reduction techniques: Automated exposure control, adjustment of the mA and/or kV according to patient size, and/or use of iterative reconstruction technique. FINDINGS: HEMORRHAGE: No intracranial hemorrhage. BRAIN: Re- demonstrated are moderate to fairly significant diffuse/confluent chronic periventricular white matter ischemic changes that extend peripherally into the deep and subcortical white matter both cerebral hemispheres there is also some extension of these changes into the white matter tracts of both basal nuclei. Multiple chronic appearing chronic bilateral basal nuclei and brain stem lacunar type infarcts less well seen compared to prior MRI due to differences in modality resolution. Note that the possibility of a small hyperacute infarct cannot be excluded on this exam Moderate significant central volume loss evidenced by disproportionate enlargement of the ventricles compared sulci. No obvious parenchymal nor extra-axial mass or collection seen on this noncontrast study VENTRICLES: No obstructive hydrocephalus. CALVARIUM: Unremarkable. PARANASAL SINUSES: Unremarkable as visualized. No significant inflammatory changes. MASTOID AIR CELLS: Unremarkable as visualized. No inflammatory changes. OTHER FINDINGS: Changes of bilateral cataract surgery present. IMPRESSION: No evidence of acute intracranial hemorrhage. Re- demonstrated are moderate to fairly significant chronic white matter ischemic changes. Chronic bilateral basal nuclei and brainstem ischemic changes less well seen compared to prior high-resolution MRI. Note that the possibility of a small hyperacute infarct cannot be excluded on this exam. Clinical correlation recommended. . Note that findings discussed with Dr. Mello at approximately 4:21 p.m. with written down and read back verification radiology
[2018-06-14 16:39] LABS: TROPONIN I 0.074 ng/mL (0.00-0.120)
--- NOTE | 2018-06-14 16:56 | RAD ---
Date of service: 06/14/2018 HISTORY: Code Stroke COMPARISON: 12/03/2017. FINDINGS: LUNGS: No active pulmonary disease. PLEURA: No significant pleural effusion identified, no pneumothorax apparent. CARDIOVASCULAR: Cardiomegaly. No evidence of acute, significant cardiovascular disease. OSSEOUS STRUCTURES: No significant abnormalities. VISUALIZED UPPER ABDOMEN: Normal. OTHER FINDINGS: None. IMPRESSION: No active disease. No significant interval change compared to the prior examination(s).
--- NOTE | 2018-06-14 17:42 | CT ---
Date of service: 06/14/2018 PROCEDURE: CT Angiography of the neck and Brain. HISTORY: code stroke COMPARISON: None available. TECHNIQUE: CT angiography of the intracranial arteries was performed. Coronal and sagittal maximum intensity projection reformated images were generated. This CT exam was performed using one or more of the following dose reduction techniques: Automated exposure control, adjustment of the mA and/or kV according to patient size, and/or use of iterative reconstruction technique. FINDINGS: Patchy ground-glass opacities noted in the lungs. RIGHT CAROTID ARTERIES: Common Carotid Artery: Normal. Carotid Bifurcation: Atherosclerotic calcifications seen at the carotid bifurcation without evidence of significant stenosis. Internal Carotid Artery:Normal. External Carotid Artery (proximal branches): Normal. LEFT CAROTID ARTERIES: Common Carotid Artery: Normal. Carotid Bifurcation: Moderate atherosclerotic calcification and mural thickening seen at the carotid bifurcation Internal Carotid Artery:Mild approximately 50 percent stenosis seen at the origin and proximal left internal carotid artery External Carotid Artery (proximal branches): Normal. VERTEBRAL ARTERIES: Right Vertebral Artery: Normal. Left Vertebral Artery: Normal. INTERNAL CEREBRAL ARTERIES: Unremarkable. The skull base, petrous, cavernous and supraclinoid segments are bilaterally widely patent. ANTERIOR CEREBRAL ARTERIES: Unremarkable. A1 and A2 segments are widely patent. Smaller distal branches unremarkable, as visualized. MIDDLE CEREBRAL ARTERIES: Unremarkable. M1 and M2 segments are widely patent. There is paucity of the M3 branches on the right comparing to the left at the temporal frontal parietal region. Perisylvian branches grossly symmetric. POSTERIOR CIRCULATION: Basilar Artery: Unremarkable. Distal Vertebral Arteries: Unremarkable. Posterior Cerebral Arteries: Unremarkable. Posterior Inferior Cerebellar Arteries: Unremarkable. ANEURYSM/ VASCULAR MALFORMATIONS: None. OTHER FINDINGS: None. IMPRESSION: Atherosclerotic disease. 50 percent stenosis at the origin and proximal left internal carotid artery. Paucity and decrease in the number of the M3 branches on the right compared to the left. Please correlate clinically. No evidence of M1 occlusion or critical stenosis.
[2018-06-14] MEDS ORDERED: Sodium Chloride 0.9% 1,000 ML IV STA (18:08)
[2018-06-14] MEDS ORDERED: Sodium Chloride 0.9% 1,000 ML ONE (18:17)
--- NOTE | 2018-06-14 20:38 | CP.PCM.HP ---
History of Present Illness - History of Present Illness History of Present Illness: COMPREHENSIVE HISTORY & PHYSICAL EXAM Patient admitted from [facility] (Formerly [facility]3] emergency room with left-sided upper extremity weakness drooping of the left side of the face and palpitation. HPI More than 48 hours ago patient complained of weakness of the left upper extremity and drooping of the drooping of the left side of the face. Patient was also found to be in atrial fibrillation with rapid ventricular rate requiring IV Cardizem. Patient atrial fibrillation is new onset. Patient has history of diabetes hypertension and previous history of UTIs and COPD. Patient was evaluated by the neurology and was put on aspirin and Plavix. CAT scan of the head did not show any acute infarct or bleed PAST HIST. PERSONAL HIST: Smoking. N Alcohol. N Allergy N Travel_- . FAMILY HIST : ROS : Constitutional: Negative for weight change, chills, night sweats, fatigue and usage of assist device. Eyes: Negative for redness, swelling, itching, discharge, vision changes, blurry vision, double vision, glaucoma, cataracts, Ears: Negative for hearing loss, ringing, , tinnitus, vertigo Nose: Negative for rhinorrhea, stuffiness, sniffing, itching, postnasal drip, discoloration, nasal congestion and epistaxis. Throat: Negative for throat clearing, sore throat, hoarseness, difficulty swallowing and difficulty speaking. Respiratory: Negative for cough, , sputum production, chest tightness, wheezing, pleuritic chest pain ,daytime somnolence, chronic cough, hemoptysis, snoring at night, Cardiovascular: Negative for chest pain, palpitations, orthopnea, PND, Edema of legs, leg cramps, angina, claudication, , irregular heartbeat, Neurology weakness of the left upper extremity and drooping of the left face. Gastrointestinal: Negative for difficulty swallowing, diarrhea, constipation, black stools, rectal bleeding, nausea, flatulence, reflux, poor appetite, changes in bowel habits, abdominal pain Genitourinary: Negative for frequent urination, hematuria, discharge, incontinence, urinary retention, frequent UTI, Psychiatric: Negative for depression, anxiety/panic, suicidal tendencies, Musculoskeletal: Negative for swollen joints, back pain, , neck pain, morning stiffness of joints, . Skin: Negative for rash, ulcers, itching, dry skin and pigmented lesions. P/E: Constitutional: Appears stated age and in no apparent distress. Head: Normocephalic. Ears: External ear canals patent without inflammation. Tympanic membranes intact with normal light reflex and landmark. Eyes: Pupils are central, bilaterally equal, symmetrical and reacts to light with normal movements and no icterus or pallor. Nose: External nares are patent. Mucosa is pink Mouth-Throat: Good general appearance and condition. No post-pharyngeal/oropharyngeal erythema and tonsillar hypertrophy. Good dental hygiene. Neck-Lymphatic: Neck is supple with normal ROM, no thyromegaly, lymph nodes or masses. JVD is normal with no carotid bruit. Lungs: Clear to percussion and auscultation with bilateral normal air entry. Cardiovascular: S1 and S2 are normal with no murmurs, gallops and rub. GI Exam: No hepatomegaly. Abdomen is soft and non-tender. No Organomegaly , masses or hernias are evident and bowel sounds are normal and active. Neurology left supranuclear facial palsy with weakness of the left upper extremity power 4 x 5. Reflexes are normal plantars downgoing. Musculoskeletal: No tender spots with normal curvature of the spine with no swelling or restricted ROM of the small and large joints. Extremities: Homans sign absent. Intact pulses with no pitting edema, calf tenderness or skin color changes. Skin: No rash, eruptions or abnormal skin pigmentation LAB/RADIOLOGY: ASSESMENT : New onset of acute CVA. Atrial fibrillation with rapid ventricular rate Type 2 diabetes. PLAN: See orders Present on Admission - Present on Admission Any Indicators Present on Admission: No Past Patient History - Past Medical History & Family History Past Medical History?: Yes - Past Social History Smoking Status: Never Smoked - CARDIAC Hx Atrial Fibrillation: No Hx Congestive Heart Failure: Yes Hx Hypercholesterolemia: Yes Hx Hypertension: Yes Hx Mitral Valve Prolapse: No Hx Pacemaker: No Hx Peripheral Edema: Yes - PULMONARY Hx Asthma: Yes Hx Bronchitis: Yes Hx Chronic Obstructive Pulmonary Disease (COPD): Yes - NEUROLOGICAL Hx Neurological Disorder: Yes Hx Dizziness: Yes - HEENT Hx HEENT Problems: Yes Hx Cataracts: Yes (cataract surgery 3 years ago?) Hx Glaucoma: No Other/Comment: wear eyeglasses - RENAL Hx Chronic Kidney Disease: No - ENDOCRINE/METABOLIC Hx Hypothyroidism: Yes - HEMATOLOGICAL/ONCOLOGICAL Hx Blood Disorders: No - INTEGUMENTARY Hx Dermatological Problems: No - MUSCULOSKELETAL/RHEUMATOLOGICAL Hx Arthritis: Yes Hx Osteoporosis: Yes - GASTROINTESTINAL Hx Gastrointestinal Disorders: No - GENITOURINARY/GYNECOLOGICAL Hx Genitourinary Disorders: No - PSYCHIATRIC Hx Substance Use: No - SURGICAL HISTORY Hx Surgeries: Yes Hx Orthopedic Surgery: Yes (left arm surgery 8 yrs ago) - ANESTHESIA Hx Anesthesia: Yes Hx Anesthesia Reactions: No Hx Malignant Hyperthermia: No Meds Allergies/Adverse Reactions: Allergies Allergy/AdvReac Type Severity Reaction Status Date / Time No Known Allergies Allergy Verified 12/03/17 21:47 Results - Vital Signs Recent Vital Signs: Last Vital Signs Temp 98.2 F 06/14/18 19:01 Pulse 125 H 06/14/18 19:49 Resp 23 06/14/18 19:49 BP 171/84 H 06/14/18 19:49 Pulse Ox 99 06/14/18 19:49 - Labs Result Diagrams: 06/14/18 16:04 06/14/18 16:04 Labs: Laboratory Results - last 24 hr 06/14/18 06/14/18 06/14/18 15:56 16:04 16:04 WBC 11.3 H RBC 4.38 Hgb 13.1 Hct 39.0 MCV 89.2 MCH 29.8 MCHC 33.5 RDW 12.7 Plt Count 234 MPV 9.0 Neut % (Auto) 73.9 Lymph % (Auto) 16.5 L Stevens % (Auto) 8.6 Eos % (Auto) 0.4 Baso % (Auto) 0.6 Neut # (Auto) 8.3 H Lymph # (Auto) 1.9 Stevens # (Auto) 1.0 H Eos # (Auto) 0.0 Baso # (Auto) 0.1 PT 12.9 H INR 1.2 APTT 29 Sodium Potassium Chloride Carbon Dioxide Anion Gap BUN Creatinine Est GFR ( Amer) Est GFR (Non-Af Amer) POC Glucose (mg/dL) 144 H Random Glucose Hemoglobin A1c Calcium Total Bilirubin AST ALT Alkaline Phosphatase Troponin I Total Protein Albumin Globulin Albumin/Globulin Ratio Triglycerides Cholesterol LDL Cholesterol Direct HDL Cholesterol 06/14/18 06/14/18 16:04 16:04 WBC RBC Hgb Hct MCV MCH MCHC RDW Plt Count MPV Neut % (Auto) Lymph % (Auto) Stevens % (Auto) Eos % (Auto) Baso % (Auto) Neut # (Auto) Lymph # (Auto) Stevens # (Auto) Eos # (Auto) Baso # (Auto) PT INR APTT Sodium 142 Potassium 5.3 H Chloride 111 H Carbon Dioxide 20 L Anion Gap 16 BUN 29 H Creatinine 1.1 Est GFR ( Amer) 58 Est GFR (Non-Af Amer) 48 POC Glucose (mg/dL) Random Glucose 144 H Hemoglobin A1c 6.8 H Calcium 9.8 Total Bilirubin 0.8 AST 73 H D ALT 47 Alkaline Phosphatase 74 Troponin I 0.0740 Total Protein 7.7 Albumin 4.1 Globulin 3.7 Albumin/Globulin Ratio 1.1 Triglycerides 90 Cholesterol 152 LDL Cholesterol Direct 68 HDL Cholesterol 52
[2018-06-14 20:48] LABS: SQUAMOUS EPITHIAL 7 /hpf (0-5); URINE BILIRUBIN NEGATIVE (NEGATIVE); URINE BLOOD NEGATIVE (NEGATIVE); URINE CLARITY Hazy (Clear); URINE COLOR Yellow (YELLOW); URINE GLUCOSE (UA) NORMAL (Normal); URINE LEUKOCYTE ESTERASE 2+ Leu/uL (Negative); URINE PROTEIN NEGATIVE (NEGATIVE); URINE UROBILINOGEN NORMAL mg/dL (0.2-1.0)
[2018-06-14] MEDS: (Novolin R) Insulin Human Regular 100 units/ml vial SC SCH (22:54)
[2018-06-15] MEDS: (Novolin R) Insulin Human Regular 100 units/ml vial SC SCH ×4 (08:03→21:11)
[2018-06-15] MEDS ORDERED: Home Med 1 UNIT (Sitagliptin Phos/Metformin Hcl [Janumet 50-1,000 Mg Tablet] 1 EACH) PO SCH (10:00)
[2018-06-15] MEDS ORDERED: AZELASTINE HCL 0.05% OU SCH ×2 (10:00)
[2018-06-15] MEDS: Multiple Vitamins Tab PO SCH (13:31)
[2018-06-15] MEDS: GlipiZIDE 5 mg SR Tab PO SCH (13:31)
[2018-06-15] MEDS: Calcium-Vit D 500 mg-200 Units Tab UD PO SCH ×2 (13:33→18:09)
[2018-06-15] MEDS: Cilostazol 50 mg Tab UD PO SCH ×2 (13:33→18:09)
[2018-06-15] MEDS: Pantoprazole 40 mg EC Tab PO SCH (13:33)
--- NOTE | 2018-06-15 14:37 | CP.PCM.PN ---
Subjective - Date & Time of Evaluation Date of Evaluation: 06/15/18 Time of Evaluation: 14:35 - Subjective Subjective: CHIEF COMPLAINTS TODAY : Patient passed a swallowing test diet order. Weakness of the left upper extremity improving no speech defect. ROS. HEENT : N. Resp : No cough, wheezing ,pleuritic CP ,or hemoptysis Cardio : No anginal CP, PND, orthopnea, palpitation GI : No abd.pain, n/v ,diarrhea or GI bleeding . 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 Musculoskel : No joint swelling , Derm : No rash Psych : Normal affect. Ext : No swelling ,calf pain PE. Pt. is alert awake in no distress. V.S As noted in the chart Head ,ear nose,throat and eyes : Normal. Neck : Supple with normal carotids. Lungs: Clear air entry. Heart : S1 & S2 normal with S4. No murmur. Abd : Soft non tender with normal bowel sounds. Neuro : Moves all ext. with mild left upper extremity weakness. Ext : No edema with intact pulses.Non tender calves Derm : No rashes or decubitus ulcer. LABS/RADIOLOGY: ASSESSMENT/PLAN : Evolving left CVA. Atrial fibrillation with moderate to rapid ventricular rate Currently patient is on aspirin and Plavix patient will need anticoagulation because of her atrial fibrillation Objective - Vital Signs/Intake and Output Vital Signs (last 24 hours): Temp Pulse Resp BP Pulse Ox 97.4 F L 88 18 115/76 98 06/15/18 07:00 06/15/18 07:00 06/15/18 07:00 06/15/18 07:00 06/15/18 04:37 Intake and Output: 06/15/18 06/15/18 11:59 23:59 Intake Total 205 Output Total 600 Balance -395 - Medications Medications: Current Medications Aspirin (Aspirin Chewable) 81 mg PO DAILY [facility] Last Admin: 06/15/18 13:31 Dose: Not Given Calcium/Vitamin D (Oyster Shell Calcium/Vitamin D 500 Mg-200 Iu) 1 tab PO BID [facility] Last Admin: 06/15/18 13:33 Dose: Not Given Cilostazol (Pletal) 50 mg PO BID [facility] Last Admin: 06/15/18 13:33 Dose: Not Given Ferrous Sulfate (Feosol) 325 mg PO DAILY [facility] Last Admin: 06/15/18 13:31 Dose: Not Given Gabapentin (Neurontin) 300 mg PO DAILY [facility] Last Admin: 06/15/18 13:32 Dose: Not Given Glipizide (Glucotrol Xl) 5 mg PO DAILY [facility] Last Admin: 06/15/18 13:31 Dose: Not Given Heparin Sodium (Porcine) (Heparin) 5,000 units SC Q12 [facility] Home Med (Sitagliptin Phos/Metformin Hcl [Janumet 50-1,000 Mg Tablet]) 1 each PO BID [facility] Last Admin: 06/15/18 13:33 Dose: Not Given Home Med (Azelastine Hcl [Azelastine Hcl]) 0.05 % OU BID [facility] Hydrochlorothiazide (Hydrodiuril) 25 mg PO DAILY [facility] Last Admin: 06/15/18 13:32 Dose: Not Given Diltiazem HCl 125 mg/ Sodium (Chloride) 125 mls @ 10 mls/hr IV .[id number] IFEANYI; 10 MG/HR PRN Reason: Protocol Last Admin: 06/15/18 09:31 Dose: 10 mg/hr, 10 mls/hr Insulin Human Regular (Novolin R) 0 unit SC ACHS [facility] PRN Reason: Protocol Last Admin: 06/15/18 13:32 Dose: Not Given Losartan Potassium (Cozaar) 100 mg PO DAILY [facility] Last Admin: 06/15/18 13:31 Dose: Not Given Multivitamins (Hexavitamin) 1 tab PO DAILY [facility] Last Admin: 06/15/18 13:31 Dose: Not Given Pantoprazole Sodium (Protonix Ec Tab) 40 mg PO DAILY [facility] Last Admin: 06/15/18 13:33 Dose: Not Given Rosuvastatin Calcium (Crestor) 5 mg PO HS [facility] Last Admin: 06/14/18 22:54 Dose: Not Given - Labs Labs: 06/14/18 16:04 06/14/18 16:04 PT 12.9 SECONDS (9.7-12.2) H 06/14/18 16:04 INR 1.2 06/14/18 16:04 APTT 29 SECONDS (21-34) 06/14/18 16:04
[2018-06-16] MEDS: (Novolin R) Insulin Human Regular 100 units/ml vial SC SCH ×4 (08:01→22:41)
[2018-06-16 08:47] LABS: BASO % 0.2 % (0.0-2.0); EOS # 0.2 K/uL (0.0-0.7); EOS % 2.1 % (0.0-4.0); HEMOGLOBIN 11.8 g/dL (11.0-16.0); LYMPH # 1.2 K/uL (1.0-4.3); LYMPH % 10.4 % (20.0-40.0); MEAN CELL VOLUME 88.7 fL (81.0-99.0); MEAN CORPUSCULAR HEMOGLOBIN 30.6 pg (27.0-31.0); MEAN CORPUSCULAR HGB CONC 34.5 g/dL (33.0-37.0); MEAN PLATELET VOLUME 9.4 fL (7.2-11.7); MONO # 0.7 K/uL (0.0-0.8); MONO % 6.4 % (0.0-10.0); NEUT # 9.3 K/uL (1.8-7.0); NEUT % 80.9 % (50.0-75.0); RBC 3.86 Mil/uL (3.80-5.20); RED CELL DISTRIBUTION WIDTH 12.4 % (11.5-14.5); WHITE BLOOD COUNT 11.5 K/uL (4.8-10.8)
[2018-06-16 09:01] LABS: ALB/GLOB RATIO 1.1 (1.0-2.1); ALBUMIN 3.6 g/dL (3.5-5.0); ALT/SGPT 36 U/L (9-52); AST/SGOT 45 U/L (14-36); BLOOD UREA NITROGEN 18 mg/dL (7-17); CALCIUM 9.3 mg/dl (8.6-10.4); GFR NON-AFRICAN AMERICAN > 60
[2018-06-16] MEDS: Multiple Vitamins Tab PO SCH (09:32)
[2018-06-16] MEDS: Pantoprazole 40 mg EC Tab PO SCH (09:32)
[2018-06-16] MEDS: Calcium-Vit D 500 mg-200 Units Tab UD PO SCH ×2 (09:33→17:41)
[2018-06-16] MEDS: GlipiZIDE 5 mg SR Tab PO SCH (09:33)
[2018-06-16] MEDS: Cilostazol 50 mg Tab UD PO SCH ×2 (09:33→17:41)
--- NOTE | 2018-06-16 16:03 | CP.PCM.PN ---
Subjective - Date & Time of Evaluation Date of Evaluation: 06/16/18 Time of Evaluation: 16:03 - Subjective Subjective: CHIEF COMPLAINTS TODAY : Patient passed a swallowing test diet order. Weakness of the left upper extremity improving no speech defect. ROS. HEENT : N. Resp : No cough, wheezing ,pleuritic CP ,or hemoptysis Cardio : No anginal CP, PND, orthopnea, palpitation GI : No abd.pain, n/v ,diarrhea or GI bleeding . 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 Musculoskel : No joint swelling , Derm : No rash Psych : Normal affect. Ext : No swelling ,calf pain PE. Pt. is alert awake in no distress. V.S As noted in the chart Head ,ear nose,throat and eyes : Normal. Neck : Supple with normal carotids. Lungs: Clear air entry. Heart : S1 & S2 normal with S4. No murmur. Abd : Soft non tender with normal bowel sounds. Neuro : Moves all ext. with mild left upper extremity weakness. Ext : No edema with intact pulses.Non tender calves Derm : No rashes or decubitus ulcer. LABS/RADIOLOGY: ASSESSMENT/PLAN : Evolving left CVA. Atrial fibrillation with moderate to rapid ventricular rate Currently patient is on aspirin and Plavix patient will need anticoagulation because of her atrial fibrillation Objective - Vital Signs/Intake and Output Vital Signs (last 24 hours): Temp Pulse Resp BP Pulse Ox 97.9 F 96 H 20 165/72 H 96 06/16/18 15:00 06/16/18 15:00 06/16/18 15:00 06/16/18 15:00 06/16/18 15:00 Intake and Output: 06/16/18 06/16/18 11:59 23:59 Intake Total 125 Balance 125 - Medications Medications: Current Medications Amlodipine Besylate (Norvasc) 10 mg PO DAILY [facility] Aspirin (Aspirin Chewable) 81 mg PO DAILY [facility] Last Admin: 06/16/18 09:33 Dose: 81 mg Calcium/Vitamin D (Oyster Shell Calcium/Vitamin D 500 Mg-200 Iu) 1 tab PO BID [facility] Last Admin: 06/16/18 09:33 Dose: 1 tab Cilostazol (Pletal) 50 mg PO BID [facility] Last Admin: 06/16/18 09:33 Dose: 50 mg Clopidogrel Bisulfate (Plavix) 75 mg PO DAILY [facility] Last Admin: 06/16/18 09:33 Dose: 75 mg Ferrous Sulfate (Feosol) 325 mg PO DAILY [facility] Last Admin: 06/16/18 09:51 Dose: 325 mg Gabapentin (Neurontin) 300 mg PO DAILY [facility] Last Admin: 06/16/18 09:32 Dose: 300 mg Glipizide (Glucotrol Xl) 5 mg PO DAILY [facility] Last Admin: 06/16/18 09:33 Dose: 5 mg Heparin Sodium (Porcine) (Heparin) 5,000 units SC Q12 [facility] Last Admin: 06/16/18 09:33 Dose: 5,000 units Home Med (Azelastine Hcl [Azelastine Hcl]) 0.05 % OU BID [facility] Hydrochlorothiazide (Hydrodiuril) 25 mg PO DAILY [facility] Last Admin: 06/16/18 09:33 Dose: 25 mg Diltiazem HCl 125 mg/ Sodium (Chloride) 125 mls @ 10 mls/hr IV .[id number] IFEANYI; 10 MG/HR PRN Reason: Protocol Last Admin: 06/16/18 10:07 Dose: 10 mg/hr, 10 mls/hr Insulin Human Regular (Novolin R) 0 unit SC ACHS [facility] PRN Reason: Protocol Last Admin: 06/16/18 12:04 Dose: 3 units Metformin HCl (Glucophage) 1,000 mg PO DAILY [facility] Last Admin: 06/16/18 09:32 Dose: 1,000 mg Multivitamins (Hexavitamin) 1 tab PO DAILY [facility] Last Admin: 06/16/18 09:32 Dose: 1 tab Pantoprazole Sodium (Protonix Ec Tab) 40 mg PO DAILY [facility] Last Admin: 06/16/18 09:32 Dose: 40 mg Rosuvastatin Calcium (Crestor) 5 mg PO HS [facility] Last Admin: 06/15/18 21:05 Dose: 5 mg Sitagliptin Phosphate (Januvia) 50 mg PO DAILY [facility] Last Admin: 06/16/18 09:33 Dose: 50 mg - Labs Labs: 06/16/18 08:21 06/16/18 08:21 PT 12.9 SECONDS (9.7-12.2) H 06/14/18 16:04 INR 1.2 06/14/18 16:04 APTT 29 SECONDS (21-34) 06/14/18 16:04
[2018-06-17 06:24] LABS: BASO % 0.2 % (0.0-2.0); EOS # 0.3 K/uL (0.0-0.7); EOS % 1.8 % (0.0-4.0); HEMOGLOBIN 12.3 g/dL (11.0-16.0); LYMPH % 14.1 % (20.0-40.0); MEAN CELL VOLUME 88.8 fL (81.0-99.0); MEAN CORPUSCULAR HGB CONC 33.8 g/dL (33.0-37.0); MEAN PLATELET VOLUME 8.9 fL (7.2-11.7); MONO # 1.2 K/uL (0.0-0.8); MONO % 8.2 % (0.0-10.0); NEUT % 75.7 % (50.0-75.0); RBC 4.1 Mil/uL (3.80-5.20); RED CELL DISTRIBUTION WIDTH 12.6 % (11.5-14.5); WHITE BLOOD COUNT 14.6 K/uL (4.8-10.8)
[2018-06-17 07:01] LABS: ALB/GLOB RATIO 1.1 (1.0-2.1); ALBUMIN 3.8 g/dL (3.5-5.0); ALT/SGPT 30 U/L (9-52); AST/SGOT 43 U/L (14-36); BLOOD UREA NITROGEN 14 mg/dL (7-17); CALCIUM 9.3 mg/dl (8.6-10.4); GFR NON-AFRICAN AMERICAN > 60
[2018-06-17] MEDS: (Novolin R) Insulin Human Regular 100 units/ml vial SC SCH ×4 (07:58→22:11)
--- NOTE | 2018-06-17 08:09 | CARD ---
APPROVED REPORT Date of service: 06/14/2018 EKG Measurement Heart [id number] <Conclusion> Atrial fibrillation with premature ventricular or aberrantly conducted complexes Left ventricular hypertrophy with repolarization abnormality Abnormal ECG
[2018-06-17] MEDS: Multiple Vitamins Tab PO SCH (10:07)
[2018-06-17] MEDS: GlipiZIDE 5 mg SR Tab PO SCH (10:07)
[2018-06-17] MEDS: Cilostazol 50 mg Tab UD PO SCH ×2 (10:08→18:52)
[2018-06-17] MEDS: Calcium-Vit D 500 mg-200 Units Tab UD PO SCH ×2 (10:08→18:52)
[2018-06-17] MEDS: Pantoprazole 40 mg EC Tab PO SCH (10:12)
--- NOTE | 2018-06-17 14:05 | CP.PCM.PN ---
Subjective - Date & Time of Evaluation Date of Evaluation: 06/17/18 Time of Evaluation: 14:04 - Subjective Subjective: CHIEF COMPLAINTS TODAY : Patient passed a swallowing test diet order. Weakness of the left upper extremity improving no speech defect. ROS. HEENT : N. Resp : No cough, wheezing ,pleuritic CP ,or hemoptysis Cardio : No anginal CP, PND, orthopnea, palpitation GI : No abd.pain, n/v ,diarrhea or GI bleeding . 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 Musculoskel : No joint swelling , Derm : No rash Psych : Normal affect. Ext : No swelling ,calf pain PE. Pt. is alert awake in no distress. V.S As noted in the chart Head ,ear nose,throat and eyes : Normal. Neck : Supple with normal carotids. Lungs: Clear air entry. Heart : S1 & S2 normal with S4. No murmur. Abd : Soft non tender with normal bowel sounds. Neuro : Moves all ext. with mild left upper extremity weakness. Ext : No edema with intact pulses.Non tender calves Derm : No rashes or decubitus ulcer. LABS/RADIOLOGY: ASSESSMENT/PLAN : Evolving left CVA. Atrial fibrillation with moderate to rapid ventricular rate Currently patient is on aspirin and Plavix patient will need anticoagulation because of her atrial fibrillation Objective - Vital Signs/Intake and Output Vital Signs (last 24 hours): Temp Pulse Resp BP Pulse Ox 97.5 F L 123 H 18 121/75 100 06/17/18 07:20 06/17/18 07:20 06/17/18 07:20 06/17/18 07:20 06/17/18 07:20 Intake and Output: 06/17/18 06/17/18 11:59 23:59 Intake Total 125 125 Balance 125 125 - Medications Medications: Current Medications Amlodipine Besylate (Norvasc) 10 mg PO DAILY [facility] Last Admin: 06/17/18 10:07 Dose: 10 mg Aspirin (Aspirin Chewable) 81 mg PO DAILY [facility] Last Admin: 06/17/18 10:08 Dose: 81 mg Calcium/Vitamin D (Oyster Shell Calcium/Vitamin D 500 Mg-200 Iu) 1 tab PO BID [facility] Last Admin: 06/17/18 10:08 Dose: 1 tab Cilostazol (Pletal) 50 mg PO BID [facility] Last Admin: 06/17/18 10:08 Dose: 50 mg Clopidogrel Bisulfate (Plavix) 75 mg PO DAILY [facility] Last Admin: 06/17/18 10:07 Dose: 75 mg Ferrous Sulfate (Feosol) 325 mg PO DAILY [facility] Last Admin: 06/17/18 10:12 Dose: 325 mg Gabapentin (Neurontin) 300 mg PO DAILY [facility] Last Admin: 06/17/18 10:09 Dose: 300 mg Glipizide (Glucotrol Xl) 5 mg PO DAILY [facility] Last Admin: 06/17/18 10:07 Dose: 5 mg Heparin Sodium (Porcine) (Heparin) 5,000 units SC Q12 [facility] Last Admin: 06/17/18 10:07 Dose: 5,000 units Home Med (Azelastine Hcl [Azelastine Hcl]) 0.05 % OU BID [facility] Hydrochlorothiazide (Hydrodiuril) 25 mg PO DAILY [facility] Last Admin: 06/17/18 10:07 Dose: 25 mg Diltiazem HCl 125 mg/ Sodium (Chloride) 125 mls @ 10 mls/hr IV .[id number] IFEANYI; 10 MG/HR PRN Reason: Protocol Last Admin: 06/17/18 14:02 Dose: 10 mg/hr, 10 mls/hr Insulin Human Regular (Novolin R) 0 unit SC ACHS [facility] PRN Reason: Protocol Last Admin: 06/17/18 14:01 Dose: 2 units Metformin HCl (Glucophage) 1,000 mg PO DAILY [facility] Last Admin: 06/17/18 10:07 Dose: 1,000 mg Multivitamins (Hexavitamin) 1 tab PO DAILY [facility] Last Admin: 06/17/18 10:07 Dose: 1 tab Pantoprazole Sodium (Protonix Ec Tab) 40 mg PO DAILY [facility] Last Admin: 06/17/18 10:12 Dose: 40 mg Rosuvastatin Calcium (Crestor) 5 mg PO HS [facility] Last Admin: 06/16/18 21:52 Dose: 5 mg Sitagliptin Phosphate (Januvia) 50 mg PO DAILY [facility] Last Admin: 06/17/18 10:07 Dose: 50 mg - Labs Labs: 06/17/18 06:17 06/17/18 06:17 PT 12.9 SECONDS (9.7-12.2) H 06/14/18 16:04 INR 1.2 06/14/18 16:04 APTT 29 SECONDS (21-34) 06/14/18 16:04
--- NOTE | 2018-06-17 16:58 | CP.PCM.CON ---
History of Present Illness - History of Present Illness History of Present Illness: 82 yr old male with severe dementia who is here for evaluation of increasing agitation and behavioral issues. will not give a history of his complaints and is quite non compliant with any tests that are being ordered. History is obtained from chart. Past Patient History - Past Medical History & Family History Past Medical History?: Yes - Past Social History Smoking Status: Never Smoked - CARDIAC Hx Congestive Heart Failure: Yes Hx Hypercholesterolemia: Yes Hx Hypertension: Yes - PULMONARY Hx Chronic Obstructive Pulmonary Disease (COPD): Yes - NEUROLOGICAL Hx Neurological Disorder: Yes Hx Dizziness: Yes - HEENT Hx HEENT Problems: Yes Hx Cataracts: Yes (cataract surgery 3 years ago?) Hx Glaucoma: No Other/Comment: wear eyeglasses - RENAL Hx Chronic Kidney Disease: No - ENDOCRINE/METABOLIC Hx Diabetes Mellitus Type 2: Yes - HEMATOLOGICAL/ONCOLOGICAL Hx Blood Disorders: No - INTEGUMENTARY Hx Dermatological Problems: No - MUSCULOSKELETAL/RHEUMATOLOGICAL Hx Arthritis: Yes - GASTROINTESTINAL Hx Gastrointestinal Disorders: No - GENITOURINARY/GYNECOLOGICAL Hx Genitourinary Disorders: No - PSYCHIATRIC Hx Substance Use: No - SURGICAL HISTORY Hx Surgeries: Yes Hx Orthopedic Surgery: Yes (left arm surgery 8 yrs ago) - ANESTHESIA Hx Anesthesia: Yes Hx Anesthesia Reactions: No Hx Malignant Hyperthermia: No Meds Allergies/Adverse Reactions: Allergies Allergy/AdvReac Type Severity Reaction Status Date / Time No Known Allergies Allergy Verified 12/03/17 21:47 - Medications Medications: Current Medications Amlodipine Besylate (Norvasc) 10 mg PO DAILY [facility] Last Admin: 06/17/18 10:07 Dose: 10 mg Aspirin (Aspirin Chewable) 81 mg PO DAILY [facility] Last Admin: 06/17/18 10:08 Dose: 81 mg Calcium/Vitamin D (Oyster Shell Calcium/Vitamin D 500 Mg-200 Iu) 1 tab PO BID [facility] Last Admin: 06/17/18 10:08 Dose: 1 tab Cilostazol (Pletal) 50 mg PO BID [facility] Last Admin: 06/17/18 10:08 Dose: 50 mg Clopidogrel Bisulfate (Plavix) 75 mg PO DAILY [facility] Last Admin: 06/17/18 10:07 Dose: 75 mg Ferrous Sulfate (Feosol) 325 mg PO DAILY [facility] Last Admin: 06/17/18 10:12 Dose: 325 mg Gabapentin (Neurontin) 300 mg PO DAILY [facility] Last Admin: 06/17/18 10:09 Dose: 300 mg Glipizide (Glucotrol Xl) 5 mg PO DAILY [facility] Last Admin: 06/17/18 10:07 Dose: 5 mg Heparin Sodium (Porcine) (Heparin) 5,000 units SC Q12 [facility] Last Admin: 06/17/18 10:07 Dose: 5,000 units Home Med (Azelastine Hcl [Azelastine Hcl]) 0.05 % OU BID [facility] Hydrochlorothiazide (Hydrodiuril) 25 mg PO DAILY [facility] Last Admin: 06/17/18 10:07 Dose: 25 mg Diltiazem HCl 125 mg/ Sodium (Chloride) 125 mls @ 10 mls/hr IV .[id number] [facility]; 10 MG/HR PRN Reason: Protocol Last Admin: 06/17/18 14:07 Dose: Not Given Insulin Human Regular (Novolin R) 0 unit SC ACHS [facility] PRN Reason: Protocol Last Admin: 06/17/18 16:30 Dose: Not Given Metformin HCl (Glucophage) 1,000 mg PO DAILY [facility] Last Admin: 06/17/18 10:07 Dose: 1,000 mg Multivitamins (Hexavitamin) 1 tab PO DAILY [facility] Last Admin: 06/17/18 10:07 Dose: 1 tab Pantoprazole Sodium (Protonix Ec Tab) 40 mg PO DAILY [facility] Last Admin: 06/17/18 10:12 Dose: 40 mg Rosuvastatin Calcium (Crestor) 5 mg PO HS [facility] Last Admin: 06/16/18 21:52 Dose: 5 mg Sitagliptin Phosphate (Januvia) 50 mg PO DAILY [facility] Last Admin: 06/17/18 10:07 Dose: 50 mg Results - Vital Signs Recent Vital Signs: Last Vital Signs Temp 98 F 06/17/18 15:00 Pulse 88 06/17/18 15:00 Resp 20 06/17/18 15:00 BP 117/71 06/17/18 15:00 Pulse Ox 97 06/17/18 15:00 - Labs Result Diagrams: 06/17/18 06:17 06/17/18 06:17 Labs: Laboratory Results - last 24 hr 06/15/18 06/15/18 06/15/18 06:14 11:34 16:24 WBC RBC Hgb Hct MCV MCH MCHC RDW Plt Count MPV Neut % (Auto) Lymph % (Auto) Dougherty % (Auto) Eos % (Auto) Baso % (Auto) Neut # (Auto) Lymph # (Auto) Dougherty # (Auto) Eos # (Auto) Baso # (Auto) Sodium Potassium Chloride Carbon Dioxide Anion Gap BUN Creatinine Est GFR ( Amer) Est GFR (Non-Af Amer) POC Glucose (mg/dL) 125 H 198 H 128 H Random Glucose Calcium Total Bilirubin AST ALT Alkaline Phosphatase Total Protein Albumin Globulin Albumin/Globulin Ratio 06/15/18 06/16/18 06/16/18 21:04 07:03 11:03 WBC RBC Hgb Hct MCV MCH MCHC RDW Plt Count MPV Neut % (Auto) Lymph % (Auto) Dougherty % (Auto) Eos % (Auto) Baso % (Auto) Neut # (Auto) Lymph # (Auto) Dougherty # (Auto) Eos # (Auto) Baso # (Auto) Sodium Potassium Chloride Carbon Dioxide Anion Gap BUN Creatinine Est GFR ( Amer) Est GFR (Non-Af Amer) POC Glucose (mg/dL) 182 H 168 H 206 H Random Glucose Calcium Total Bilirubin AST ALT Alkaline Phosphatase Total Protein Albumin Globulin Albumin/Globulin Ratio 06/16/18 06/16/18 06/17/18 17:03 21:13 06:13 WBC RBC Hgb Hct MCV MCH MCHC RDW Plt Count MPV Neut % (Auto) Lymph % (Auto) Dougherty % (Auto) Eos % (Auto) Baso % (Auto) Neut # (Auto) Lymph # (Auto) Dougherty # (Auto) Eos # (Auto) Baso # (Auto) Sodium Potassium Chloride Carbon Dioxide Anion Gap BUN Creatinine Est GFR ( Amer) Est GFR (Non-Af Amer) POC Glucose (mg/dL) 76 129 H 135 H Random Glucose Calcium Total Bilirubin AST ALT Alkaline Phosphatase Total Protein Albumin Globulin Albumin/Globulin Ratio 06/17/18 06/17/18 06/17/18 06:17 06:17 12:36 WBC 14.6 H RBC 4.10 Hgb 12.3 Hct 36.4 MCV 88.8 MCH 30.0 MCHC 33.8 RDW 12.6 Plt Count 214 MPV 8.9 Neut % (Auto) 75.7 H Lymph % (Auto) 14.1 L Dougherty % (Auto) 8.2 Eos % (Auto) 1.8 Baso % (Auto) 0.2 Neut # (Auto) 11.0 H Lymph # (Auto) 2.0 Dougherty # (Auto) 1.2 H Eos # (Auto) 0.3 Baso # (Auto) 0.0 Sodium 140 Potassium 3.8 Chloride 105 Carbon Dioxide 24 Anion Gap 15 BUN 14 Creatinine 0.9 Est GFR ( Amer) > 60 Est GFR (Non-Af Amer) > 60 POC Glucose (mg/dL) 195 H Random Glucose 148 H Calcium 9.3 Total Bilirubin 0.6 AST 43 H ALT 30 Alkaline Phosphatase 71 Total Protein 7.2 Albumin 3.8 Globulin 3.4 Albumin/Globulin Ratio 1.1 06/17/18 15:53 WBC RBC Hgb Hct MCV MCH MCHC RDW Plt Count MPV Neut % (Auto) Lymph % (Auto) Dougherty % (Auto) Eos % (Auto) Baso % (Auto) Neut # (Auto) Lymph # (Auto) Dougherty # (Auto) Eos # (Auto) Baso # (Auto) Sodium Potassium Chloride Carbon Dioxide Anion Gap BUN Creatinine Est GFR ( Amer) Est GFR (Non-Af Amer) POC Glucose (mg/dL) 143 H Random Glucose Calcium Total Bilirubin AST ALT Alkaline Phosphatase Total Protein Albumin Globulin Albumin/Globulin Ratio
--- NOTE | 2018-06-17 22:54 | CARD ---
APPROVED REPORT Date of service: 06/17/2018 EXAM: Two-dimensional and M-mode echocardiogram with Doppler and color Doppler. Other Information Quality : GoodRhythm : INDICATION CVA/TIA Dizziness and Vertigo Syncope Congestive Heart Failure RISK FACTORS Hypertension Hyperlipidemia Diabetes 2D DIMENSIONS IVSd2.0 (0.7-1.1cm)Aortic Root (2D)2.6 (2.0-3.7cm) LVDd2.0 (3.9-5.9cm)PWd2.3 (0.7-1.1cm) LVDs1.3 (2.5-4.0cm)FS (%) 32.3 % LVEF (%)63.7 (>50%) M-Mode DIMENSIONS Left Atrium (MM)3.61 (2.5-4.0cm)Aortic Root2.73 (2.2-3.7cm) Aortic Cusp Exc.1.71 (1.5-2.0cm) Mitral Valve MV E Lmecsjlf008.5cm/sMV A Dagmmzaj40.5cm/sMV FZA26ig E/A ratio2.0MVA (PHT)4.05cm2 TDI E/Lateral E'0.0E/Medial E'0.0 Tricuspid Valve TR Peak [id number]/sTR Peak Gr.[id number] <Conclusion> Left ventricle: thickness: concentric thickeningl; size: normal; overall ejection fraction: 65%: diastolic filling pressures:elevated Mitral valve: annulus:MACleaflets: normal: excursion: restricted; 14mmHg peak trans-mitral gradient: no significant incompetence: left atrium: normal; MV area indeterminate Aortic valve: leaflets: mild calcific thickening: excursion: normal; no significant trans-aortic gradient: No significant incompetence: aortic root: normal Right sided Structures: Pulmonary valve: normal; no significant incompetence; Tricuspid valve: normal; mild incompetence: Intra-cardiac hemodynamics: pulmonary systolic pressures: 50mmHg central venous pressures: normal No pericardial effusion
[2018-06-18] MEDS: (Novolin R) Insulin Human Regular 100 units/ml vial SC SCH ×4 (07:44→21:35)
--- NOTE | 2018-06-18 11:49 | MRI ---
Date of service: 06/18/2018 PROCEDURE: MRI BRAIN WITHOUT CONTRAST HISTORY: bed COMPARISON: Noncontrast head CT and head-neck CT angiogram 06/14/2018 and prior brain MRI 11/20/2017. TECHNIQUE: Multiplanar, multisequence MR images of the brain were obtained without intravenous contrast enhancement. FINDINGS: The examination is heavily artifact due to extensive motion throughout the exam. HEMORRHAGE: No definite intracranial hemorrhage appreciated overall. DWI: Restricted diffusion difficult to prove in a large segment of the mid to posterior right MCA distribution but is likely. ADC map is grossly distorted limiting the tibial by evaluation. BRAIN PARENCHYMA: Diffuse cerebral atrophy chronic microangiopathy are reiterated however there is cytotoxic edema identified at the right temporoparietal distribution, appearing to spare the right frontal and occipital lobes, compatible with acute subacute brain infarction. Limited mass effect effaces a few right parietal sulci at the mid to superior distribution. No midline shift. Posterior fossa contents reveals no definite suspicious findings in standard images with artifacts noted on diffusion-weighted examination. VENTRICLES: Unremarkable. No hydrocephalus. CRANIUM: Unremarkable. ORBITS: Grossly unremarkable. PARANASAL SINUSES/MASTOIDS: Clear VASCULAR SYSTEM: Skull base flow voids intact. OTHER FINDINGS: None. IMPRESSION: Acute to subacute infarct right temporoparietal sub distribution of right middle cerebral artery. Overall pattern correlates rather well with head-neck CT angiogram 06/14/2018. Limited local mass effect. No midline shift. Diffuse cerebral atrophy chronic microangiopathy are reiterated as discussed above. Exam is grossly artifact by motion limiting diffusion-weighted imaging. Discussion primarily based on standard rather than diffusion-weighted imaging results. Artifacts grossly distort ADC map.
[2018-06-18] MEDS: Multiple Vitamins Tab PO SCH (12:21)
[2018-06-18] MEDS: Pantoprazole 40 mg EC Tab PO SCH (12:21)
[2018-06-18] MEDS: GlipiZIDE 5 mg SR Tab PO SCH (12:21)
[2018-06-18] MEDS: Calcium-Vit D 500 mg-200 Units Tab UD PO SCH ×2 (12:22→17:23)
[2018-06-18] MEDS: Cilostazol 50 mg Tab UD PO SCH ×2 (12:22→17:23)
--- NOTE | 2018-06-18 13:11 | CP.PCM.PN ---
Subjective - Date & Time of Evaluation Date of Evaluation: 06/18/18 Time of Evaluation: 13:10 - Subjective Subjective: CHIEF COMPLAINTS TODAY : Patient passed a swallowing test diet order. No Weakness of the left upper extremity improving no speech defect. ROS. HEENT : N. Resp : No cough, wheezing ,pleuritic CP ,or hemoptysis Cardio : No anginal CP, PND, orthopnea, palpitation GI : No abd.pain, n/v ,diarrhea or GI bleeding . 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 Musculoskel : No joint swelling , Derm : No rash Psych : Normal affect. Ext : No swelling ,calf pain PE. Pt. is alert awake in no distress. V.S As noted in the chart Head ,ear nose,throat and eyes : Normal. Neck : Supple with normal carotids. Lungs: Clear air entry. Heart : S1 & S2 normal with S4. No murmur. Abd : Soft non tender with normal bowel sounds. Neuro : Moves all ext. Ext : No edema with intact pulses.Non tender calves Derm : No rashes or decubitus ulcer. LABS/RADIOLOGY: ASSESSMENT/PLAN : Evolving left CVA. Atrial fibrillation with moderate to rapid ventricular rate Currently patient is on aspirin and Plavix patient will need anticoagulation because of her atrial fibrillation Neurology to advise on anticoagulation Objective - Vital Signs/Intake and Output Vital Signs (last 24 hours): Temp Pulse Resp BP Pulse Ox 98.1 F 96 H 20 131/70 95 06/18/18 04:00 06/18/18 08:37 06/18/18 04:00 06/18/18 04:00 06/18/18 04:00 - Medications Medications: Current Medications Amlodipine Besylate (Norvasc) 10 mg PO DAILY [facility] Last Admin: 06/18/18 12:21 Dose: 10 mg Aspirin (Aspirin Chewable) 81 mg PO DAILY [facility] Last Admin: 06/18/18 12:21 Dose: 81 mg Calcium/Vitamin D (Oyster Shell Calcium/Vitamin D 500 Mg-200 Iu) 1 tab PO BID [facility] Last Admin: 06/18/18 12:22 Dose: 1 tab Cilostazol (Pletal) 50 mg PO BID [facility] Last Admin: 06/18/18 12:22 Dose: 50 mg Clopidogrel Bisulfate (Plavix) 75 mg PO DAILY [facility] Last Admin: 06/18/18 12:21 Dose: 75 mg Ferrous Sulfate (Feosol) 325 mg PO DAILY [facility] Last Admin: 06/18/18 12:21 Dose: 325 mg Gabapentin (Neurontin) 300 mg PO DAILY [facility] Last Admin: 06/18/18 12:21 Dose: 300 mg Glipizide (Glucotrol Xl) 5 mg PO DAILY [facility] Last Admin: 06/18/18 12:21 Dose: 5 mg Heparin Sodium (Porcine) (Heparin) 5,000 units SC Q12 [facility] Last Admin: 06/18/18 12:22 Dose: 5,000 units Home Med (Azelastine Hcl [Azelastine Hcl]) 0.05 % OU BID [facility] Hydrochlorothiazide (Hydrodiuril) 25 mg PO DAILY [facility] Last Admin: 06/18/18 12:21 Dose: 25 mg Diltiazem HCl 125 mg/ Sodium (Chloride) 125 mls @ 10 mls/hr IV .[id number] [facility]; 10 MG/HR PRN Reason: Protocol Last Admin: 06/17/18 14:07 Dose: Not Given Insulin Human Regular (Novolin R) 0 unit SC ACHS [facility] PRN Reason: Protocol Last Admin: 06/18/18 12:20 Dose: 3 units Metformin HCl (Glucophage) 1,000 mg PO DAILY [facility] Last Admin: 06/18/18 12:20 Dose: 1,000 mg Multivitamins (Hexavitamin) 1 tab PO DAILY [facility] Last Admin: 06/18/18 12:21 Dose: 1 tab Pantoprazole Sodium (Protonix Ec Tab) 40 mg PO DAILY [facility] Last Admin: 06/18/18 12:21 Dose: 40 mg Rosuvastatin Calcium (Crestor) 5 mg PO HS [facility] Last Admin: 06/17/18 22:10 Dose: 5 mg Sitagliptin Phosphate (Januvia) 50 mg PO DAILY [facility] Last Admin: 06/18/18 12:21 Dose: 50 mg - Labs Labs: 06/17/18 06:17 06/17/18 06:17 PT 12.9 SECONDS (9.7-12.2) H 06/14/18 16:04 INR 1.2 06/14/18 16:04 APTT 29 SECONDS (21-34) 06/14/18 16:04
--- NOTE | 2018-06-18 16:03 | CP.PCM.PN ---
Subjective - Date & Time of Evaluation Date of Evaluation: 06/18/18 Time of Evaluation: 15:58 - Subjective Subjective: DISCUSSED PLAN WITH DR. GARNER (NEURO) AND WE WILL STOP THE HEPARIN, ASA AND PLAVIX AND START LOVENOX 20 MG SQ (FIRST DOSE NOW; LESS MG RECOMMENDED BY DR. GARNER 2/2 PT'S AGE AND RISK OF BLEEDING) FOLLOWED BY Q 12 HOURS. WE WILL PLAN TO [facility] WITH [facility] STARTING TOMORROW, WITH A GOAL INR BETWEEN 1-2. DR. GARNER RECOMMENDS TO OBSERVE THE PT UNTIL AT LEAST SUNDAY OR SUNDAY, THEN OK TO DC TO [facility] DEPENDING ON HOW SHE PROGRESSES. NO FURTHER ORDERS AT THIS TIME. Objective - Vital Signs/Intake and Output Vital Signs (last 24 hours): Temp Pulse Resp BP Pulse Ox 98.1 F 96 H 20 131/70 95 06/18/18 04:00 06/18/18 08:37 06/18/18 04:00 06/18/18 04:00 06/18/18 04:00 Intake and Output: 06/18/18 06/18/18 06:59 18:59 Intake Total 350 240 Balance 350 240 - Medications Medications: Current Medications Amlodipine Besylate (Norvasc) 10 mg PO DAILY [facility] Last Admin: 06/18/18 12:21 Dose: 10 mg Calcium/Vitamin D (Oyster Shell Calcium/Vitamin D 500 Mg-200 Iu) 1 tab PO BID [facility] Last Admin: 06/18/18 12:22 Dose: 1 tab Cilostazol (Pletal) 50 mg PO BID [facility] Last Admin: 06/18/18 12:22 Dose: 50 mg Enoxaparin Sodium (Lovenox) 20 mg SC Q12H [facility] Ferrous Sulfate (Feosol) 325 mg PO DAILY [facility] Last Admin: 06/18/18 12:21 Dose: 325 mg Gabapentin (Neurontin) 300 mg PO DAILY [facility] Last Admin: 06/18/18 12:21 Dose: 300 mg Glipizide (Glucotrol Xl) 5 mg PO DAILY [facility] Last Admin: 06/18/18 12:21 Dose: 5 mg Home Med (Azelastine Hcl [Azelastine Hcl]) 0.05 % OU BID [facility] Hydrochlorothiazide (Hydrodiuril) 25 mg PO DAILY [facility] Last Admin: 06/18/18 12:21 Dose: 25 mg Diltiazem HCl 125 mg/ Sodium (Chloride) 125 mls @ 10 mls/hr IV .[id number] [facility]; 10 MG/HR PRN Reason: Protocol Last Admin: 06/17/18 14:07 Dose: Not Given Insulin Human Regular (Novolin R) 0 unit SC ACHS [facility] PRN Reason: Protocol Last Admin: 06/18/18 12:20 Dose: 3 units Metformin HCl (Glucophage) 1,000 mg PO DAILY [facility] Last Admin: 06/18/18 12:20 Dose: 1,000 mg Multivitamins (Hexavitamin) 1 tab PO DAILY [facility] Last Admin: 06/18/18 12:21 Dose: 1 tab Pantoprazole Sodium (Protonix Ec Tab) 40 mg PO DAILY [facility] Last Admin: 06/18/18 12:21 Dose: 40 mg Rosuvastatin Calcium (Crestor) 5 mg PO HS [facility] Last Admin: 06/17/18 22:10 Dose: 5 mg Sitagliptin Phosphate (Januvia) 50 mg PO DAILY [facility] Last Admin: 06/18/18 12:21 Dose: 50 mg - Labs Labs: 06/17/18 06:17 06/17/18 06:17 PT 12.9 SECONDS (9.7-12.2) H 06/14/18 16:04 INR 1.2 06/14/18 16:04 APTT 29 SECONDS (21-34) 06/14/18 16:04
--- NOTE | 2018-06-18 16:04 | CP.PCM.PN ---
Subjective - Date & Time of Evaluation Date of Evaluation: 06/18/18 Time of Evaluation: 16:00 - Subjective Subjective: PGY1 [place] note for Neurologist Dr. Patton. Patient seen and examined at bedside. No overnight events. Patient states she has some left arm weakness but otherwise has no other complaints. Patient denies chest pain, SOB, trouble voiding, loss of sensation in arms/legs. Objective - Vital Signs/Intake and Output Vital Signs (last 24 hours): Temp Pulse Resp BP Pulse Ox 98.1 F 96 H 20 131/70 95 06/18/18 04:00 06/18/18 08:37 06/18/18 04:00 06/18/18 04:00 06/18/18 04:00 Intake and Output: 06/18/18 06/18/18 06:59 18:59 Intake Total 350 240 Balance 350 240 - Medications Medications: Current Medications Amlodipine Besylate (Norvasc) 10 mg PO DAILY [facility] Last Admin: 06/18/18 12:21 Dose: 10 mg Calcium/Vitamin D (Oyster Shell Calcium/Vitamin D 500 Mg-200 Iu) 1 tab PO BID [facility] Last Admin: 06/18/18 12:22 Dose: 1 tab Cilostazol (Pletal) 50 mg PO BID [facility] Last Admin: 06/18/18 12:22 Dose: 50 mg Enoxaparin Sodium (Lovenox) 20 mg SC Q12H [facility] Ferrous Sulfate (Feosol) 325 mg PO DAILY [facility] Last Admin: 06/18/18 12:21 Dose: 325 mg Gabapentin (Neurontin) 300 mg PO DAILY [facility] Last Admin: 06/18/18 12:21 Dose: 300 mg Glipizide (Glucotrol Xl) 5 mg PO DAILY [facility] Last Admin: 06/18/18 12:21 Dose: 5 mg Home Med (Azelastine Hcl [Azelastine Hcl]) 0.05 % OU BID [facility] Hydrochlorothiazide (Hydrodiuril) 25 mg PO DAILY [facility] Last Admin: 06/18/18 12:21 Dose: 25 mg Diltiazem HCl 125 mg/ Sodium (Chloride) 125 mls @ 10 mls/hr IV .[id number] [facility]; 10 MG/HR PRN Reason: Protocol Last Admin: 06/17/18 14:07 Dose: Not Given Insulin Human Regular (Novolin R) 0 unit SC ACHS [facility] PRN Reason: Protocol Last Admin: 06/18/18 12:20 Dose: 3 units Metformin HCl (Glucophage) 1,000 mg PO DAILY [facility] Last Admin: 06/18/18 12:20 Dose: 1,000 mg Multivitamins (Hexavitamin) 1 tab PO DAILY [facility] Last Admin: 06/18/18 12:21 Dose: 1 tab Pantoprazole Sodium (Protonix Ec Tab) 40 mg PO DAILY [facility] Last Admin: 06/18/18 12:21 Dose: 40 mg Rosuvastatin Calcium (Crestor) 5 mg PO HS [facility] Last Admin: 06/17/18 22:10 Dose: 5 mg Sitagliptin Phosphate (Januvia) 50 mg PO DAILY [facility] Last Admin: 06/18/18 12:21 Dose: 50 mg - Labs Labs: 06/17/18 06:17 06/17/18 06:17 PT 12.9 SECONDS (9.7-12.2) H 06/14/18 16:04 INR 1.2 06/14/18 16:04 APTT 29 SECONDS (21-34) 06/14/18 16:04 - Constitutional Appears: Non-toxic, No Acute Distress - Head Exam Head Exam: ATRAUMATIC, NORMAL INSPECTION, NORMOCEPHALIC - Eye Exam Eye Exam: EOMI, Normal appearance, PERRL Pupil Exam: NORMAL ACCOMODATION, PERRL - ENT Exam ENT Exam: Mucous Membranes Moist - Extremities Exam Additional comments: LUE olecraon deformity 2/2 surgical fixation s/p fracture several years ago - Neurological Exam Neurological Exam: Alert, Awake, CN II-XII Intact, Oriented x3 Neuro motor strength exam: Left Upper Extremity: 4, Right Upper Extremity: 5, Left Lower Extremity: 5, Right Lower Extremity: 5 Additional comments: Normal finger to nose, normal sensory extinction test - Psychiatric Exam Psychiatric exam: Normal Affect, Normal Mood Assessment and Plan - Assessment and Plan (Free Text) Assessment: Assessment & Plan Discussed with Dr. Patton. 82 F w/ PMHx of DM & HTN presented to ED w/ 48 hrs of weakness on LUE, found to have afib w/ RVR, started on cardizem drip in ED, now on norvasc 10m) CVA w/ residual LUE weakness - CT: no acute intracranial hemorrhage, moderate to fairly significant chronic white matter ischemic changes - MRI Head: acute to subacute infarct R temporoparietal sub distribution of R MCA - CTA Head: 50% stenosis at origin & proximal L internal carotid artery - ECHO: LVH, EF 65%, no vegetations - Lipid profile WNL - Rec: Discontinue aspirin 81 mg, clopidegril Start: Lovenox 20 mg Q12 today 06/18 Warfarin 2mg tomorrow 06/19,
--- NOTE | 2018-06-19 07:11 | CP.PCM.PN ---
Subjective - Date & Time of Evaluation Date of Evaluation: 06/19/18 Time of Evaluation: 07:10 - Subjective Subjective: Ms. Lawton was seen and examined at the bedside. She is able to state her name, but unable to verbalize place, and time. She denies any headache, blurred vision , but unable to follow any commands, able to withdraws from noxious stimuli on all extremities with left side weaker in comparison to the right.There was no untoward events overnight. Objective - Vital Signs/Intake and Output Vital Signs (last 24 hours): Temp Pulse Resp BP Pulse Ox 99.4 F 107 H 20 131/57 L 96 06/19/18 06:00 06/19/18 06:00 06/19/18 06:00 06/19/18 06:00 06/19/18 06:00 Intake and Output: 06/19/18 06/19/18 06:59 18:59 Intake Total 200 Balance 200 - Medications Medications: Current Medications Amlodipine Besylate (Norvasc) 10 mg PO DAILY [facility] Last Admin: 06/18/18 12:21 Dose: 10 mg Calcium/Vitamin D (Oyster Shell Calcium/Vitamin D 500 Mg-200 Iu) 1 tab PO BID [facility] Last Admin: 06/18/18 17:23 Dose: 1 tab Cilostazol (Pletal) 50 mg PO BID [facility] Last Admin: 06/18/18 17:23 Dose: 50 mg Diltiazem HCl (Cardizem) 30 mg PO Q8 [facility] Last Admin: 06/19/18 06:04 Dose: 30 mg Enoxaparin Sodium (Lovenox) 40 mg SC DAILY [facility] Ferrous Sulfate (Feosol) 325 mg PO DAILY [facility] Last Admin: 06/18/18 12:21 Dose: 325 mg Gabapentin (Neurontin) 300 mg PO DAILY [facility] Last Admin: 06/18/18 12:21 Dose: 300 mg Glipizide (Glucotrol Xl) 5 mg PO DAILY [facility] Last Admin: 06/18/18 12:21 Dose: 5 mg Home Med (Azelastine Hcl [Azelastine Hcl]) 0.05 % OU BID [facility] Hydrochlorothiazide (Hydrodiuril) 25 mg PO DAILY [facility] Last Admin: 06/18/18 12:21 Dose: 25 mg Insulin Human Regular (Novolin R) 0 unit SC [facility] PRN Reason: Protocol Last Admin: 06/18/18 21:35 Dose: Not Given Metformin HCl (Glucophage) 1,000 mg PO DAILY [facility] Last Admin: 06/18/18 12:20 Dose: 1,000 mg Multivitamins (Hexavitamin) 1 tab PO DAILY [facility] Last Admin: 06/18/18 12:21 Dose: 1 tab Pantoprazole Sodium (Protonix Ec Tab) 40 mg PO DAILY [facility] Last Admin: 06/18/18 12:21 Dose: 40 mg Rosuvastatin Calcium (Crestor) 5 mg PO HS [facility] Last Admin: 06/18/18 22:17 Dose: 5 mg Sitagliptin Phosphate (Januvia) 50 mg PO DAILY [facility] Last Admin: 06/18/18 12:21 Dose: 50 mg - Labs Labs: 06/17/18 06:17 06/17/18 06:17 PT 12.9 SECONDS (9.7-12.2) H 06/14/18 16:04 INR 1.2 06/14/18 16:04 APTT 29 SECONDS (21-34) 06/14/18 16:04 - Constitutional Appears: No Acute Distress - Head Exam Head Exam: NORMAL INSPECTION - Eye Exam Pupil Exam: Miosis Additional comments: 2 mm - Neurological Exam Neurological Exam: Awake Neuro motor strength exam: Left Upper Extremity: 2/1, Right Upper Extremity: 3, Left Lower Extremity: 2/1, Right Lower Extremity: 2/1 Additional comments: awake, unable to follow simple commands Assessment and Plan (1) CVA (cerebral vascular accident) Assessment & Plan: Continue all current medical, physical, occupational therapies. Recommend speech eval and treat, anticoagulant for a-fib and secondary prevention of stroke, hydration, rehab for discharge planning, blood pressure control, treat any underlying infection and electrolyte abnormalities, keep head of bed elevated at least 30 degrees for brain perfusion. Status: Acute
[2018-06-19] MEDS: (Novolin R) Insulin Human Regular 100 units/ml vial SC SCH ×3 (07:46→18:08)
[2018-06-19] MEDS: Enoxaparin 40 mg Syringe SC SCH (09:55)
[2018-06-19] MEDS: Pantoprazole 40 mg EC Tab PO SCH (09:56)
[2018-06-19] MEDS: Cilostazol 50 mg Tab UD PO SCH ×2 (09:56→19:13)
[2018-06-19] MEDS: GlipiZIDE 5 mg SR Tab PO SCH (09:56)
[2018-06-19] MEDS: Calcium-Vit D 500 mg-200 Units Tab UD PO SCH ×2 (09:56→19:13)
[2018-06-19] MEDS: Multiple Vitamins Tab PO SCH (09:57)
[2018-06-19 13:59] LABS: INR 1.1; PROTHROMBIN TIME 12.4 SECONDS (9.7-12.2)
--- NOTE | 2018-06-19 14:04 | CP.PCM.PN ---
Subjective - Date & Time of Evaluation Date of Evaluation: 06/19/18 Time of Evaluation: 14:03 - Subjective Subjective: CHIEF COMPLAINTS TODAY : cardiac monitoring shows frequent couplets. Patient has no complaints neurologically patient is intact ROS. HEENT : N. Resp : No cough, wheezing ,pleuritic CP ,or hemoptysis Cardio : No anginal CP, PND, orthopnea, palpitation GI : No abd.pain, n/v ,diarrhea or GI bleeding . GROOMING ASSISTANT : No headache, vertigo, focal deficit. Musculoskel : No joint swelling , Derm : No rash Psych : Normal affect. Ext : No swelling ,calf pain PE. Pt. is alert awake in no distress. V.S As noted in the chart Head ,ear nose,throat and eyes : Normal. Neck : Supple with normal carotids. Lungs: Clear air entry. Heart : S1 & S2 normal with S4. No murmur. Abd : Soft non tender with normal bowel sounds. Neuro : Moves all ext. Ext : No edema with intact pulses.Non tender calves Derm : No rashes or decubitus ulcer. LABS/RADIOLOGY: ASSESSMENT/PLAN : Evolving left CVA. Atrial fibrillation with moderate to rapid ventricular rate electrolytes are normal. Will get echo to evaluate left systolic function Patient is on dual anticoagulation no evidence of bleeding Objective - Vital Signs/Intake and Output Vital Signs (last 24 hours): Temp Pulse Resp BP Pulse Ox 97.8 F 81 18 117/58 L 95 06/19/18 08:10 06/19/18 08:10 06/19/18 08:10 06/19/18 08:10 06/19/18 08:10 - Medications Medications: Current Medications Amlodipine Besylate (Norvasc) 10 mg PO DAILY [facility] Last Admin: 06/19/18 09:56 Dose: 10 mg Calcium/Vitamin D (Oyster Shell Calcium/Vitamin D 500 Mg-200 Iu) 1 tab PO BID [facility] Last Admin: 06/19/18 09:56 Dose: 1 tab Cilostazol (Pletal) 50 mg PO BID [facility] Last Admin: 06/19/18 09:56 Dose: 50 mg Diltiazem HCl (Cardizem) 30 mg PO Q8 [facility] Last Admin: 06/19/18 13:25 Dose: 30 mg Enoxaparin Sodium (Lovenox) 40 mg SC DAILY [facility] Last Admin: 08/22/18 09:55 Dose: 40 mg Ferrous Sulfate (Feosol) 325 mg PO DAILY [facility] Last Admin: 06/19/18 09:56 Dose: 325 mg Gabapentin (Neurontin) 300 mg PO DAILY [facility] Last Admin: 06/19/18 09:56 Dose: 300 mg Glipizide (Glucotrol Xl) 5 mg PO DAILY [facility] Last Admin: 06/19/18 09:56 Dose: 5 mg Home Med (Azelastine Hcl [Azelastine Hcl]) 0.05 % OU BID [facility] Hydrochlorothiazide (Hydrodiuril) 25 mg PO DAILY [facility] Last Admin: 06/19/18 09:57 Dose: 25 mg Insulin Human Regular (Novolin R) 0 unit SC [facility] PRN Reason: Protocol Last Admin: 06/19/18 12:09 Dose: 2 units Metformin HCl (Glucophage) 1,000 mg PO DAILY [facility] Last Admin: 06/19/18 09:56 Dose: 1,000 mg Multivitamins (Hexavitamin) 1 tab PO DAILY [facility] Last Admin: 06/19/18 09:57 Dose: 1 tab Pantoprazole Sodium (Protonix Ec Tab) 40 mg PO DAILY [facility] Last Admin: 06/19/18 09:56 Dose: 40 mg Rosuvastatin Calcium (Crestor) 5 mg PO HS [facility] Last Admin: 06/18/18 22:17 Dose: 5 mg Sitagliptin Phosphate (Januvia) 50 mg PO DAILY [facility] Last Admin: 06/19/18 09:56 Dose: 50 mg Warfarin Sodium (Coumadin) 5 mg PO 1800 [facility] Stop: 06/19/18 18:01 - Labs Labs: 06/17/18 06:17 06/17/18 06:17 PT 12.4 SECONDS (9.7-12.2) H 06/19/18 13:49 INR 1.1 06/19/18 13:49 APTT 29 SECONDS (21-34) 06/14/18 16:04
--- NOTE | 2018-06-19 14:38 | CP.PCM.PN ---
Subjective - Date & Time of Evaluation Date of Evaluation: 06/19/18 Time of Evaluation: 14:37 - Subjective Subjective: DISCUSSED ANTICOAGULATION WITH DR. GARNER THIS AFTERNOON. WILL CONTINUE LOVENOX. START COUMADIN AT 5MG PO TONIGHT. INR ORDER FOR TODAY IN ORDER FOR COUMADIN TO BE APPROVED BY PHARMACY. WILL CONTINUE TO MONITOR PT. REPEAT LABS ORDERED FOR TOMORROW MORNING. Objective - Vital Signs/Intake and Output Vital Signs (last 24 hours): Temp Pulse Resp BP Pulse Ox 97.8 F 81 18 117/58 L 95 06/19/18 08:10 06/19/18 08:10 06/19/18 08:10 06/19/18 08:10 06/19/18 08:10 Intake and Output: 06/19/18 06/19/18 06:59 18:59 Intake Total 200 Balance 200 - Medications Medications: Current Medications Amlodipine Besylate (Norvasc) 10 mg PO DAILY [facility] Last Admin: 06/19/18 09:56 Dose: 10 mg Calcium/Vitamin D (Oyster Shell Calcium/Vitamin D 500 Mg-200 Iu) 1 tab PO BID [facility] Last Admin: 06/19/18 09:56 Dose: 1 tab Cilostazol (Pletal) 50 mg PO BID [facility] Last Admin: 06/19/18 09:56 Dose: 50 mg Diltiazem HCl (Cardizem) 30 mg PO Q8 [facility] Last Admin: 06/19/18 13:25 Dose: 30 mg Enoxaparin Sodium (Lovenox) 40 mg SC DAILY [facility] Last Admin: 06/19/18 09:55 Dose: 40 mg Ferrous Sulfate (Feosol) 325 mg PO DAILY [facility] Last Admin: 06/19/18 09:56 Dose: 325 mg Gabapentin (Neurontin) 300 mg PO DAILY [facility] Last Admin: 06/19/18 09:56 Dose: 300 mg Glipizide (Glucotrol Xl) 5 mg PO DAILY [facility] Last Admin: 06/19/18 09:56 Dose: 5 mg Home Med (Azelastine Hcl [Azelastine Hcl]) 0.05 % OU BID [facility] Hydrochlorothiazide (Hydrodiuril) 25 mg PO DAILY [facility] Last Admin: 06/19/18 09:57 Dose: 25 mg Insulin Human Regular (Novolin R) 0 unit SC [facility] PRN Reason: Protocol Last Admin: 06/19/18 12:09 Dose: 2 units Metformin HCl (Glucophage) 1,000 mg PO DAILY [facility] Last Admin: 06/19/18 09:56 Dose: 1,000 mg Multivitamins (Hexavitamin) 1 tab PO DAILY [facility] Last Admin: 06/19/18 09:57 Dose: 1 tab Pantoprazole Sodium (Protonix Ec Tab) 40 mg PO DAILY [facility] Last Admin: 06/19/18 09:56 Dose: 40 mg Rosuvastatin Calcium (Crestor) 5 mg PO HS [facility] Last Admin: 06/18/18 22:17 Dose: 5 mg Sitagliptin Phosphate (Januvia) 50 mg PO DAILY [facility] Last Admin: 06/19/18 09:56 Dose: 50 mg Warfarin Sodium (Coumadin) 5 mg PO 1800 [facility] Stop: 06/19/18 18:01 - Labs Labs: 06/17/18 06:17 06/17/18 06:17 PT 12.4 SECONDS (9.7-12.2) H 06/19/18 13:49 INR 1.1 06/19/18 13:49 APTT 29 SECONDS (21-34) 06/14/18 16:04
--- NOTE | 2018-06-20 06:34 | CP.PCM.PN ---
Subjective - Date & Time of Evaluation Date of Evaluation: 06/20/18 Time of Evaluation: 06:32 - Subjective Subjective: Ms. Lawton was seen and examined at the bedside. She is more awake, does let the staff knows her needs, but refused to answer any questions. She is able to follow some commands such as opening her mouth, raising her bilateral upper and lower extremities, moves from side to side. There was no untoward events overnight. Objective - Vital Signs/Intake and Output Vital Signs (last 24 hours): Temp Pulse Resp BP Pulse Ox 98.2 F 108 H 20 139/64 93 L 06/20/18 04:00 06/20/18 04:12 06/20/18 04:00 06/20/18 04:00 06/20/18 04:00 Intake and Output: 06/19/18 06/20/18 18:59 06:59 Intake Total 250 Balance 250 - Medications Medications: Current Medications Amlodipine Besylate (Norvasc) 10 mg PO DAILY [facility] Last Admin: 06/19/18 09:56 Dose: 10 mg Calcium/Vitamin D (Oyster Shell Calcium/Vitamin D 500 Mg-200 Iu) 1 tab PO BID [facility] Last Admin: 06/19/18 19:13 Dose: 1 tab Cilostazol (Pletal) 50 mg PO BID [facility] Last Admin: 06/19/18 19:13 Dose: 50 mg Diltiazem HCl (Cardizem) 30 mg PO Q8 [facility] Last Admin: 06/20/18 05:13 Dose: 30 mg Enoxaparin Sodium (Lovenox) 40 mg SC DAILY [facility] Last Admin: 06/19/18 09:55 Dose: 40 mg Ferrous Sulfate (Feosol) 325 mg PO DAILY [facility] Last Admin: 06/19/18 09:56 Dose: 325 mg Gabapentin (Neurontin) 300 mg PO DAILY [facility] Last Admin: 06/19/18 09:56 Dose: 300 mg Glipizide (Glucotrol Xl) 5 mg PO DAILY [facility] Last Admin: 06/19/18 09:56 Dose: 5 mg Home Med (Azelastine Hcl [Azelastine Hcl]) 0.05 % OU BID [facility] Hydrochlorothiazide (Hydrodiuril) 25 mg PO DAILY [facility] Last Admin: 06/19/18 09:57 Dose: 25 mg Insulin Human Regular (Novolin R) 0 unit SC [facility] PRN Reason: Protocol Last Admin: 06/19/18 18:08 Dose: Not Given Metformin HCl (Glucophage) 1,000 mg PO DAILY [facility] Last Admin: 06/19/18 09:56 Dose: 1,000 mg Multivitamins (Hexavitamin) 1 tab PO DAILY [facility] Last Admin: 06/19/18 09:57 Dose: 1 tab Pantoprazole Sodium (Protonix Ec Tab) 40 mg PO DAILY [facility] Last Admin: 06/19/18 09:56 Dose: 40 mg Rosuvastatin Calcium (Crestor) 5 mg PO HS [facility] Last Admin: 06/19/18 21:46 Dose: 5 mg Sitagliptin Phosphate (Januvia) 50 mg PO DAILY [facility] Last Admin: 06/19/18 09:56 Dose: 50 mg - Labs Labs: 06/17/18 06:17 06/17/18 06:17 PT 12.4 SECONDS (9.7-12.2) H 06/19/18 13:49 INR 1.1 06/19/18 13:49 APTT 29 SECONDS (21-34) 06/14/18 16:04 - Constitutional Appears: No Acute Distress - Head Exam Head Exam: NORMAL INSPECTION - Eye Exam Pupil Exam: Miosis, PERRL Additional comments: 2 mm - Neurological Exam Neurological Exam: Awake Neuro motor strength exam: Left Upper Extremity: 3, Right Upper Extremity: 4, Left Lower Extremity: 3, Right Lower Extremity: 4 Additional comments: neurological unchanged from previous examination. Assessment and Plan (1) CVA (cerebral vascular accident) Assessment & Plan: Continue all current medical, physical, occupational therapies, and speech therapies. Recommend anticoagulant for a-fib and secondary prevention of stroke ,keep the INR between 2-3 if coumadin is being utilize, hydration, rehab for discharge planning, blood pressure control, treat any underlying infection and electrolyte abnormalities, keep head of bed elevated at least 30 degrees for brain perfusion, and cognitive therapy. Status: Acute
[2018-06-20] MEDS: (Novolin R) Insulin Human Regular 100 units/ml vial SC SCH ×4 (07:54→21:14)
[2018-06-20] MEDS: Cilostazol 50 mg Tab UD PO SCH ×2 (10:05→18:06)
[2018-06-20] MEDS: Calcium-Vit D 500 mg-200 Units Tab UD PO SCH ×2 (10:05→18:06)
[2018-06-20] MEDS: Pantoprazole 40 mg EC Tab PO SCH (10:06)
[2018-06-20] MEDS: GlipiZIDE 5 mg SR Tab PO SCH (10:06)
[2018-06-20] MEDS: Multiple Vitamins Tab PO SCH (10:06)
[2018-06-20] MEDS: Enoxaparin 40 mg Syringe SC SCH (10:06)
[2018-06-20 11:39] LABS: BLOOD UREA NITROGEN 14 mg/dL (7-17); CALCIUM 9.2 mg/dl (8.6-10.4); GFR NON-AFRICAN AMERICAN > 60
--- NOTE | 2018-06-20 14:32 | CP.PCM.PN ---
Subjective - Date & Time of Evaluation Date of Evaluation: 06/20/18 Time of Evaluation: 14:31 - Subjective Subjective: Currently patient has no neuro deficit. No further evidence of bigeminy. Echo showed a left ventricle ejection fraction of 60%. Add Xarelto if stable will discharge the patient Objective - Vital Signs/Intake and Output Vital Signs (last 24 hours): Temp Pulse Resp BP Pulse Ox 98.2 F 102 H 20 139/64 93 L 06/20/18 04:00 06/20/18 07:28 06/20/18 04:00 06/20/18 04:00 06/20/18 04:00 - Medications Medications: Current Medications Amlodipine Besylate (Norvasc) 10 mg PO DAILY [facility] Last Admin: 06/20/18 10:06 Dose: 10 mg Calcium/Vitamin D (Oyster Shell Calcium/Vitamin D 500 Mg-200 Iu) 1 tab PO BID [facility] Last Admin: 06/20/18 10:05 Dose: 1 tab Cilostazol (Pletal) 50 mg PO BID [facility] Last Admin: 06/20/18 10:05 Dose: 50 mg Diltiazem HCl (Cardizem) 30 mg PO Q8 [facility] Last Admin: 06/20/18 14:06 Dose: 30 mg Ferrous Sulfate (Feosol) 325 mg PO DAILY [facility] Last Admin: 06/20/18 10:09 Dose: 325 mg Gabapentin (Neurontin) 300 mg PO DAILY [facility] Last Admin: 06/20/18 10:05 Dose: 300 mg Glipizide (Glucotrol Xl) 5 mg PO DAILY [facility] Last Admin: 06/20/18 10:06 Dose: 5 mg Home Med (Azelastine Hcl [Azelastine Hcl]) 0.05 % OU BID [facility] Hydrochlorothiazide (Hydrodiuril) 25 mg PO DAILY [facility] Last Admin: 06/20/18 10:06 Dose: 25 mg Insulin Human Regular (Novolin R) 0 unit SC [facility] PRN Reason: Protocol Last Admin: 06/20/18 12:28 Dose: 2 units Metformin HCl (Glucophage) 1,000 mg PO DAILY [facility] Last Admin: 06/20/18 10:09 Dose: 1,000 mg Multivitamins (Hexavitamin) 1 tab PO DAILY [facility] Last Admin: 06/20/18 10:06 Dose: 1 tab Pantoprazole Sodium (Protonix Ec Tab) 40 mg PO DAILY [facility] Last Admin: 06/20/18 10:06 Dose: 40 mg Rivaroxaban (Xarelto) 15 mg PO DAILY [facility] Rosuvastatin Calcium (Crestor) 5 mg PO HS [facility] Last Admin: 06/19/18 21:46 Dose: 5 mg Sitagliptin Phosphate (Januvia) 50 mg PO DAILY [facility] Last Admin: 06/20/18 10:06 Dose: 50 mg - Labs Labs: 06/17/18 06:17 06/20/18 11:17 PT 12.4 SECONDS (9.7-12.2) H 06/19/18 13:49 INR 1.1 06/19/18 13:49 APTT 29 SECONDS (21-34) 06/14/18 16:04
--- NOTE | 2018-06-20 14:39 | CP.PCM.PN ---
Subjective - Date & Time of Evaluation Date of Evaluation: 06/20/18 Time of Evaluation: 14:32 - Subjective Subjective: SPOKE WITH DR. JOHNSON REGARDING ANTICOAGULATION. MY ORDERS FOR CBC, AND PT/INR FROM THIS MORNING WERE CANCELLED, THE SPECIMEN WAS CLOTTED PER RN CADEN. WE WILL D/C LOVENOX TODAY AND START PT ON XARELTO 15 MG PO DAILY. WE WILL MONITOR FOR BLEEDING OVER THE NEXT COUPLE OF DAYS AND POSSIBLY D/C TO [facility] OVER THE WEEKEND. PER THE PT REQUESTED [facility]. NO FURTHER ORDERS. Objective - Vital Signs/Intake and Output Vital Signs (last 24 hours): Temp Pulse Resp BP Pulse Ox 98.2 F 102 H 20 139/64 93 L 06/20/18 04:00 06/20/18 07:28 06/20/18 04:00 06/20/18 04:00 06/20/18 04:00 Intake and Output: 06/20/18 06/20/18 06:59 18:59 Intake Total 250 Balance 250 - Medications Medications: Current Medications Amlodipine Besylate (Norvasc) 10 mg PO DAILY [facility] Last Admin: 06/20/18 10:06 Dose: 10 mg Calcium/Vitamin D (Oyster Shell Calcium/Vitamin D 500 Mg-200 Iu) 1 tab PO BID [facility] Last Admin: 06/20/18 10:05 Dose: 1 tab Cilostazol (Pletal) 50 mg PO BID [facility] Last Admin: 06/20/18 10:05 Dose: 50 mg Diltiazem HCl (Cardizem) 30 mg PO Q8 [facility] Last Admin: 06/20/18 14:06 Dose: 30 mg Ferrous Sulfate (Feosol) 325 mg PO DAILY [facility] Last Admin: 06/20/18 10:09 Dose: 325 mg Gabapentin (Neurontin) 300 mg PO DAILY [facility] Last Admin: 06/20/18 10:05 Dose: 300 mg Glipizide (Glucotrol Xl) 5 mg PO DAILY [facility] Last Admin: 06/20/18 10:06 Dose: 5 mg Home Med (Azelastine Hcl [Azelastine Hcl]) 0.05 % OU BID [facility] Hydrochlorothiazide (Hydrodiuril) 25 mg PO DAILY [facility] Last Admin: 06/20/18 10:06 Dose: 25 mg Insulin Human Regular (Novolin R) 0 unit SC [facility] PRN Reason: Protocol Last Admin: 06/20/18 12:28 Dose: 2 units Metformin HCl (Glucophage) 1,000 mg PO DAILY [facility] Last Admin: 06/20/18 10:09 Dose: 1,000 mg Multivitamins (Hexavitamin) 1 tab PO DAILY [facility] Last Admin: 06/20/18 10:06 Dose: 1 tab Pantoprazole Sodium (Protonix Ec Tab) 40 mg PO DAILY [facility] Last Admin: 06/20/18 10:06 Dose: 40 mg Rivaroxaban (Xarelto) 15 mg PO DAILY [facility] Rosuvastatin Calcium (Crestor) 5 mg PO HS [facility] Last Admin: 06/19/18 21:46 Dose: 5 mg Sitagliptin Phosphate (Januvia) 50 mg PO DAILY [facility] Last Admin: 06/20/18 10:06 Dose: 50 mg - Labs Labs: 06/17/18 06:17 06/20/18 11:17 PT 12.4 SECONDS (9.7-12.2) H 06/19/18 13:49 INR 1.1 06/19/18 13:49 APTT 29 SECONDS (21-34) 06/14/18 16:04
[2018-06-20 16:54] LABS: HEMOGLOBIN 11.4 g/dL (11.0-16.0); MEAN CELL VOLUME 87.7 fL (81.0-99.0); MEAN CORPUSCULAR HEMOGLOBIN 29.6 pg (27.0-31.0); MEAN CORPUSCULAR HGB CONC 33.8 g/dL (33.0-37.0); MEAN PLATELET VOLUME 9.4 fL (7.2-11.7); RBC 3.85 Mil/uL (3.80-5.20); RED CELL DISTRIBUTION WIDTH 12.8 % (11.5-14.5); WHITE BLOOD COUNT 11.9 K/uL (4.8-10.8)
[2018-06-20 17:08] LABS: BLOOD UREA NITROGEN 14 mg/dL (7-17); GFR NON-AFRICAN AMERICAN > 60
--- NOTE | 2018-06-21 02:16 | CARD ---
APPROVED REPORT Date of service: 06/19/2018 EKG Measurement Heart [id number] <Conclusion> Sinus rhythm with frequent and consecutive premature ventricular complexes Left ventricular hypertrophy with repolarization abnormality Abnormal ECG
--- NOTE | 2018-06-21 06:37 | CP.PCM.PN ---
Subjective - Date & Time of Evaluation Date of Evaluation: 06/21/18 Time of Evaluation: 06:37 - Subjective Subjective: Ms. Lawton was seen and examined at the bedside. She is more awake, does let the staff knows her needs, but refused to answer any questions. She is able to follow some commands such as opening her mouth, raising her bilateral upper and lower extremities, moves from side to side. She remains on 1:1 patient safety. There was no untoward events overnight. Objective - Vital Signs/Intake and Output Vital Signs (last 24 hours): Temp Pulse Resp BP Pulse Ox 98.2 F 108 H 20 129/72 95 06/20/18 23:20 06/21/18 05:25 06/20/18 23:20 06/21/18 05:25 06/20/18 23:20 Intake and Output: 06/20/18 06/21/18 18:59 06:59 Intake Total 240 Balance 240 - Medications Medications: Current Medications Amlodipine Besylate (Norvasc) 10 mg PO DAILY [facility] Last Admin: 06/20/18 10:06 Dose: 10 mg Calcium/Vitamin D (Oyster Shell Calcium/Vitamin D 500 Mg-200 Iu) 1 tab PO BID [facility] Last Admin: 06/20/18 18:06 Dose: 1 tab Cilostazol (Pletal) 50 mg PO BID [facility] Last Admin: 06/20/18 18:06 Dose: 50 mg Diltiazem HCl (Cardizem) 30 mg PO Q8 [facility] Last Admin: 06/21/18 05:29 Dose: 30 mg Ferrous Sulfate (Feosol) 325 mg PO DAILY [facility] Last Admin: 06/20/18 10:09 Dose: 325 mg Gabapentin (Neurontin) 300 mg PO DAILY [facility] Last Admin: 06/20/18 10:05 Dose: 300 mg Glipizide (Glucotrol Xl) 5 mg PO DAILY [facility] Last Admin: 06/20/18 10:06 Dose: 5 mg Home Med (Azelastine Hcl [Azelastine Hcl]) 0.05 % OU BID [facility] Hydrochlorothiazide (Hydrodiuril) 25 mg PO DAILY [facility] Last Admin: 06/20/18 10:06 Dose: 25 mg Insulin Human Regular (Novolin R) 0 unit SC [facility] PRN Reason: Protocol Last Admin: 06/20/18 21:14 Dose: Not Given Metformin HCl (Glucophage) 1,000 mg PO DAILY [facility] Last Admin: 06/20/18 10:09 Dose: 1,000 mg Multivitamins (Hexavitamin) 1 tab PO DAILY [facility] Last Admin: 06/20/18 10:06 Dose: 1 tab Pantoprazole Sodium (Protonix Ec Tab) 40 mg PO DAILY [facility] Last Admin: 06/20/18 10:06 Dose: 40 mg Rivaroxaban (Xarelto) 15 mg PO DAILY [facility] Last Admin: 06/20/18 18:05 Dose: 15 mg Rosuvastatin Calcium (Crestor) 5 mg PO HS [facility] Last Admin: 06/20/18 21:11 Dose: 5 mg Sitagliptin Phosphate (Januvia) 50 mg PO DAILY [facility] Last Admin: 06/20/18 10:06 Dose: 50 mg - Labs Labs: 06/20/18 16:50 06/20/18 16:50 PT 12.4 SECONDS (9.7-12.2) H 06/19/18 13:49 INR 1.1 06/19/18 13:49 APTT 29 SECONDS (21-34) 06/14/18 16:04 - Constitutional Appears: No Acute Distress - Head Exam Head Exam: NORMAL INSPECTION - Eye Exam Pupil Exam: Miosis - Neurological Exam Neurological Exam: Awake Neuro motor strength exam: Left Upper Extremity: 3, Right Upper Extremity: 4, Left Lower Extremity: 3, Right Lower Extremity: 4 Additional comments: neurological unchanged from previous examination. Assessment and Plan (1) CVA (cerebral vascular accident) Assessment & Plan: Continue all current medical, physical, occupational therapies, and speech therapies. Recommend hydration, rehab for discharge planning, blood pressure control, treat any underlying infection and electrolyte abnormalities, keep head of bed elevated at least 30 degrees for brain perfusion, and cognitive therapy. Status: Acute
[2018-06-21] MEDS: (Novolin R) Insulin Human Regular 100 units/ml vial SC SCH ×4 (07:26→22:21)
[2018-06-21] MEDS: Calcium-Vit D 500 mg-200 Units Tab UD PO SCH ×2 (09:21→17:41)
[2018-06-21] MEDS: Pantoprazole 40 mg EC Tab PO SCH (09:21)
[2018-06-21] MEDS: GlipiZIDE 5 mg SR Tab PO SCH (09:21)
[2018-06-21] MEDS: Multiple Vitamins Tab PO SCH (09:21)
[2018-06-21] MEDS: Cilostazol 50 mg Tab UD PO SCH ×2 (09:22→17:41)
--- NOTE | 2018-06-21 12:20 | CP.PCM.DIS ---
Provider - Provider Date of Admission: 06/14/18 18:58 Attending physician: Fouzia Quiroz MD Time Spent in preparation of Discharge (in minutes): 35 Hospital Course - Lab Results Lab Results: Micro Results 06/14/18 20:28 Urine,Clean Catch Urine Culture - Final <10,000 CFU/ML. MULTIPLE SPECIES. PROBABLE CONTAMINATION. Most Recent Lab Values WBC 11.9 K/uL (4.8-10.8) H 06/20/18 16:50 RBC 3.85 Mil/uL (3.80-5.20) 06/20/18 16:50 Hgb 11.4 g/dL (11.0-16.0) 06/20/18 16:50 Hct 33.7 % (34.0-47.0) L 06/20/18 16:50 MCV 87.7 fL (81.0-99.0) 06/20/18 16:50 MCH 29.6 pg (27.0-31.0) 06/20/18 16:50 MCHC 33.8 g/dL (33.0-37.0) 06/20/18 16:50 RDW 12.8 % (11.5-14.5) 06/20/18 16:50 Plt Count 201 K/uL (130-400) 06/20/18 16:50 MPV 9.4 fL (7.2-11.7) 06/20/18 16:50 Neut % (Auto) 75.7 % (50.0-75.0) H 06/17/18 06:17 Lymph % (Auto) 14.1 % (20.0-40.0) L 06/17/18 06:17 [place] % (Auto) 8.2 % (0.0-10.0) 06/17/18 06:17 Eos % (Auto) 1.8 % (0.0-4.0) 06/17/18 06:17 Baso % (Auto) 0.2 % (0.0-2.0) 06/17/18 06:17 Neut # (Auto) 11.0 K/uL (1.8-7.0) H 06/17/18 06:17 Lymph # (Auto) 2.0 K/uL (1.0-4.3) 06/17/18 06:17 [place] # (Auto) 1.2 K/uL (0.0-0.8) H 06/17/18 06:17 Eos # (Auto) 0.3 K/uL (0.0-0.7) 06/17/18 06:17 Baso # (Auto) 0.0 K/uL (0.0-0.2) 06/17/18 06:17 PT 12.4 SECONDS (9.7-12.2) H 06/19/18 13:49 INR 1.1 06/19/18 13:49 APTT 29 SECONDS (21-34) 06/14/18 16:04 Sodium 135 mmol/L (132-148) 06/20/18 16:50 Potassium 3.7 mmol/L (3.6-5.2) 06/20/18 16:50 Chloride 101 mmol/L (98-107) 06/20/18 16:50 Carbon Dioxide 23 mmol/L (22-30) 06/20/18 16:50 Anion Gap 16 (10-20) 06/20/18 16:50 BUN 14 mg/dL (7-17) 06/20/18 16:50 Creatinine 0.8 mg/dL (0.7-1.2) 06/20/18 16:50 Est GFR ( Amer) > 60 06/20/18 16:50 Est GFR (Non-Af Amer) > 60 06/20/18 16:50 POC Glucose (mg/dL) 117 mg/dL (65-110) H 06/20/18 20:48 Random Glucose 109 mg/dL (65-105) H 06/20/18 16:50 Hemoglobin A1c 6.8 % (4.2-6.5) H 06/14/18 16:04 Calcium 9.0 mg/dl (8.6-10.4) 06/20/18 16:50 Phosphorus 3.1 mg/dL (2.5-4.5) 06/16/18 08:21 Magnesium 1.5 mg/dL (1.6-2.3) L 06/16/18 08:21 Total Bilirubin 0.6 mg/dL (0.2-1.3) 06/17/18 06:17 AST 43 U/L (14-36) H 06/17/18 06:17 ALT 30 U/L (9-52) 06/17/18 06:17 Alkaline Phosphatase 71 U/L (38-126) 06/17/18 06:17 Troponin I 0.0740 ng/mL (0.00-0.120) 06/14/18 16:04 Total Protein 7.2 g/dL (6.3-8.3) 06/17/18 06:17 Albumin 3.8 g/dL (3.5-5.0) 06/17/18 06:17 Globulin 3.4 gm/dL (2.2-3.9) 06/17/18 06:17 Albumin/Globulin Ratio 1.1 (1.0-2.1) 06/17/18 06:17 Triglycerides 90 mg/dL (0-149) 06/14/18 16:04 Cholesterol 152 mg/dL (0-199) 06/14/18 16:04 LDL Cholesterol Direct 68 mg/dL (0-129) 06/14/18 16:04 HDL Cholesterol 52 mg/dL (30-70) 06/14/18 16:04 Urine Color Yellow (YELLOW) 06/14/18 20:28 Urine Clarity Hazy (Clear) 06/14/18 20:28 Urine pH 5.0 (5.0-8.0) 06/14/18 20:28 Ur Specific [place] 1.034 (1.003-1.030) H 06/14/18 20:28 Urine Protein Negative mg/dL (NEGATIVE) 06/14/18 20:28 Urine Glucose (UA) Normal mg/dL (Normal) 06/14/18 20:28 Urine Ketones Negative mg/dL (NEGATIVE) 06/14/18 20:28 Urine Blood Negative (NEGATIVE) 06/14/18 20:28 Urine Nitrate Negative (NEGATIVE) 06/14/18 20:28 Urine Bilirubin Negative (NEGATIVE) 06/14/18 20:28 Urine Urobilinogen Normal mg/dL (0.2-1.0) 06/14/18 20:28 Ur Leukocyte Esterase 2+ [place]/uL (Negative) H 06/14/18 20:28 Urine WBC (Auto) 33 /hpf (0-5) H 06/14/18 20:28 Urine RBC (Auto) 1 /hpf (0-3) 06/14/18 20:28 Ur Squamous Epith Cells 7 /hpf (0-5) H 06/14/18 20:28 - Hospital Course Hospital Course: More than 48 hours ago patient complained of weakness of the left upper extremity and drooping of the drooping of the left side of the face. Patient was also found to be in atrial fibrillation with rapid ventricular rate requiring IV Cardizem. Patient atrial fibrillation is new onset. Patient has history of diabetes hypertension and previous history of UTIs and COPD. Patient was evaluated by the neurology and was put on aspirin and Plavix. CAT scan of the head did not show any acute infarct or bleed Neurology consult was obtained. Patient underwent neuro workup MRI of the brain showed acute on chronic evolving infarct on the right side. Patient was initially treated with aspirin and Plavix and was changed to Lovenox there was no evidence of any internal or external bleeding. Patient was switched to Xarelto. Patient continued to have atrial fibrillation for a few days requiring IV Cardizem and then was switched to by mouth. Echocardiogram showed normal left ventricle ejection fraction of 60%. 1 of the day the patient had an episode of ventricular bigeminy which subsided without any treatment. Patient currently has recovered the weakness on the left upper extremity but appears to be weak and not ambulating will be transferred to the rehab of the family's choice. June 22, 2018 Patient was transferred to rehab next day due to non availability of bed in the intermediate. Currently patient is stable transfer Discharge Exam - Head Exam Head Exam: NORMAL INSPECTION Discharge Plan - Follow Up Plan Condition: GUARDED Disposition: HOME/ ROUTINE
[2018-06-22] MEDS: (Novolin R) Insulin Human Regular 100 units/ml vial SC SCH ×3 (08:03→17:04)
[2018-06-22] MEDS: Calcium-Vit D 500 mg-200 Units Tab UD PO SCH (10:18)
[2018-06-22] MEDS: Cilostazol 50 mg Tab UD PO SCH (10:18)
[2018-06-22] MEDS: Multiple Vitamins Tab PO SCH (10:19)
[2018-06-22] MEDS: GlipiZIDE 5 mg SR Tab PO SCH (10:19)
[2018-06-22] MEDS: Pantoprazole 40 mg EC Tab PO SCH (10:19)
[2018-06-22] MEDS ORDERED: Pneumococcal 23-Valent Vaccine IM ONE (16:03)
[2018-06-22 16:54] VITALS: BP 118/61; PULSE 107; RESP 20; TEMP 98.6; O2SAT 94
== END 2018-06-22 17:00 | DRG 65 ==
LOC: C.ER 15:52 → C.9E 18:58 → C.6T 20:00
PROVIDERS: ADMIT Internal Medicine Cardiovascular Disease; ATTEND Internal Medicine Cardiovascular Disease
DX: I63.9 Cerebral infarction, unspecified (principal); G81.94 Hemiplegia, unspecified affecting left nondominant side; G51.0 Bell's palsy; I48.92 Unspecified atrial flutter; I49.3 Ventricular premature depolarization; I11.0 Hypertensive heart disease with heart failure; J44.9 Chronic obstructive pulmonary disease, unspecified; I50.9 Heart failure, unspecified; I48.91 Unspecified atrial fibrillation; E11.9 Type 2 diabetes mellitus without complications; I25.10 Atherosclerotic heart disease of native coronary artery without angina pectoris; E03.9 Hypothyroidism, unspecified; M81.0 Age-related osteoporosis without current pathological fracture; E78.00 Pure hypercholesterolemia, unspecified; F03.91 Unspecified dementia, unspecified severity, with behavioral disturbance; Z87.440 Personal history of urinary (tract) infections; Z79.01 Long term (current) use of anticoagulants